=== PATIENT | female | born 1965 | race Caucasian/White ===

== ENCOUNTER → 2017-08-14 | Outpatient (CLI) | payer BC ==
--- NOTE | 2017-08-15 08:13 | MM ---
Reason for exam: screening (asymptomatic). Last mammogram was performed 7 years and 2 months ago. History: Family history of breast cancer in maternal grandmother at age 30. Physical Findings: A clinical breast exam by your physician is recommended on an annual basis and results should be correlated with mammographic findings. MG 3D Screening Mammo W/Cad Bilateral CC and MLO view(s) were taken. XCCL view(s) were taken of the left breast. Prior study comparison: June 08, 2010, CAD bilateral diagnostic mammogram. The breast tissue is heterogeneously dense. This may lower the sensitivity of mammography. Abnormal lymph node within the left axilla. Large area of malignant calcifications measuring 5.2 x 4.0cm with underlying mass upper outer quadrant left breast 11cm from nipple. Additional smaller clusters. ASSESSMENT: Incomplete: need additional imaging evaluation, BI-RAD 0 RECOMMENDATION: Special view mammogram and ultrasound of the left breast. [facility] will attempt to contact patient to return for supplemental views and ultrasound.
== END | disposition home or self-care (01) ==
LOC: RADMAMWWP 14:17
PROVIDERS: ATTEND Family Medicine
DX: Z12.31 Encounter for screening mammogram for malignant neoplasm of breast (principal)
CPT/HCPCS: 77063; 77067

== ENCOUNTER → 2017-08-23 | Outpatient (CLI) | payer BC ==
--- NOTE | 2017-08-27 09:03 | MM ---
Reason for exam: additional evaluation requested from abnormal screening. Last mammogram was performed less than 1 month ago. History: Family history of breast cancer in maternal grandmother at age 30. 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 MG 3D Work Up W/Cad LT LM, LM with magnification, and CC with magnification view(s) were taken of the left breast. Prior study comparison: August 14, 2017, bilateral MG 3d screening mammo w/cad. June 08, 2010, CAD bilateral diagnostic mammogram. Finding: There is an intermediate concern, suspicious 17 x 31 mm high density, spiculated irregular mass located 8 cm from the nipple in the upper outer quadrant, middle position of the left breast consistent with extensive punctate calcifications. These results were verbally communicated with the patient and result sheet given to the patient on 08/23/17. ASSESSMENT: Highly suggestive of malignancy, BI-RAD 5 RECOMMENDATION: Surgical consultation and ultrasound core biopsy of the left breast. Called Dr. Melchor with mammographic findings and has scheduled an appointment for the patient for 08/24/17 at 12:[address] Schreiber. Biopsy scheduled for 08/28/17 at 2:00. PRELIMINARY REPORT CALLED AND FAXED TO DR. SCHREIBER ON 08/27/17.
--- NOTE | 2017-08-27 09:05 | USB ---
Reason for exam: additional evaluation requested from abnormal screening. History: Family history of breast cancer in maternal grandmother at age 30. US Breast Workup Limited LT Left limited breast ultrasound including focal area of concern, retroareolar and axilla demonstrates ductal ectasia at the nipple, a 0.9 x 0.3 x 0.9cm solid lesion at 2 o'clock, a 2.2 x 2.4 x 2.9cm solid lesion at 3 o'clock, a 1.7 x 1.0 x 1.6cm node at the axilla, a 1.6 x 1.4 x 0.9cm node at the axilla and a 1.2 x 1.4 x 1.4cm node at the axilla. These results were verbally communicated with the patient and result sheet given to the patient on 08/23/17. ASSESSMENT: Highly suggestive of malignancy, BI-RAD 5 RECOMMENDATION: Surgical consultation and ultrasound core biopsy of the left breast. Called Dr. Melchor with mammographic findings and has scheduled an appointment for the patient for 08/24/17 at 12:[address] Schreiber. Biopsy scheduled for 08/28/17 at 2:00. PRELIMINARY REPORT CALLED AND FAXED TO DR. SCHREIBER ON 08/27/17.
== END | disposition home or self-care (01) ==
LOC: RADMAMWWP 14:46
PROVIDERS: ATTEND Family Medicine
DX: R92.8 Other abnormal and inconclusive findings on diagnostic imaging of breast (principal)
CPT/HCPCS: 77061; 77065

== ENCOUNTER → 2017-08-24 | Outpatient (CLI) | payer BC ==
[2017-08-24 12:54] VITALS: BMI 34.0
--- NOTE | 2017-08-24 13:48 | P.GSHP ---
History of Present Illness H&P Date: 08/24/17 I patient is a 52-year-old white female who complains of some pain in her left breast in the upper outer quadrant area. She recently mammogram 529 and 18 which showed an area of concern in the upper outer quadrant of the left breast. Additional views including ultrasound and diagnostic mammogram have been recommended, theses were done yesterday. Reports are pending, an ultrasound core biopsy is recommended. Patient complains of left breast nipple discharge about 1 month ago, it has stopped. No masses or pain in the right breast.No nipple discharge on the right. The patient does complain of bilateral nipple sensitivity she had her last menstrual. Approximately 6 months ago. Family history: 1. Maternal grandmother breast cancer Menarche: 15 Pregnancies: 2, first at 20, breast fed both menarche: last menstral period 6 months ago Past surgical history: 1. Removal of coccyx 2. Hysteroscopy 3. Laparoscopy 4. Tubal ligation past medical history: 1. Ulcerative colitis 2. Irritable bowel syndrome social history: smoke: none alcohol: none drugs: none - Constitutional Constitutional: Denies chills, Denies fever - EENT Eyes: denies blurred vision, denies pain Ears: deny: decreased hearing, ear discharge, tinnitus Ears, nose, mouth and throat: Reports headache, Denies sore throat - Breasts Breasts: bilateral: as per HPI - Cardiovascular Cardiovascular: Denies chest pain, Denies shortness of breath - Respiratory Respiratory: Reports cough - Gastrointestinal Comment: ulcerative colitis, IBS colonoscopy in the past has had several Gastrointestinal: Reports abdominal pain, Reports diarrhea, Denies nausea, Denies vomiting - Genitourinary (Female) Genitourinary: Reports as per HPI - Menstruation Menstruation: Reports as per HPI - Musculoskeletal Musculoskeletal: Reports as per HPI - Integumentary Comment: itching around nipples bilateral Integumentary: Reports pruritus, Denies rash - Neurological Neurological: Reports numbness, Denies weakness - Psychiatric Psychiatric: Denies anxiety, Denies depression - Endocrine Endocrine: Reports fatigue, Reports flushing, Denies weight change - Hematologic/Lymphatic Comment: none - Allergic/Immunologic Allergic/Immunologic: Reports seasonal allergies Past Medical History Past Medical History: No Reported History Additional Past Medical History / Comment(s): IBS, History of Any Multi-Drug Resistant Organisms: None Reported Additional Past Surgical History / Comment(s): TAIL BONE REMOVED IN 9TH GRADE, Smoking Status: Never smoker - Past Family History Mother Family Medical History: Eye Disorder, Osteoarthritis (OA) Additional Family Medical History / Comment(s): IBS Surgical - Exam - General obese - Eyes normal ocular movement - ENT normal pinna, normal nares - Neck no masses, trachea midline - Respiratory normal respiratory effort, clear to auscultation - Cardiovascular Rhythm: regular Heart Sounds: normal: S1, S2 - Abdomen Abdomen: soft, non tender, no guarding, no rigid, no rebound - Neurologic no disoriented, no combative - Musculoskeletal normal gait, normal posture - Psychiatric oriented to time, oriented to person, oriented to place, speech is normal, memory intact Breast examination: Right breast: Both positional exam no dominant masses or nodules of concern Right axilla: No adenopathy of concern Left breast: Increased fullness upper-outer quadrant area approximately 5 x 4 cm in size Left axilla: No adenopathy of concern Assessment and Plan Assessment: Impression/plan: 1. Left breast abnormal mammogram/ultrasound, mass UOQ 2. History of ulcerative colitis Plan: 1. Ultrasound-guided left breast core biopsy 2. Follow-up next week cc: Dr. Melchor
== END ==
LOC: WWCWWP 12:48
PROVIDERS: ATTEND Surgery
DX: Z53.9 Procedure and treatment not carried out, unspecified reason (principal)

== ENCOUNTER → 2017-08-28 | Day surgery (SDC) | payer BC ==
[2017-08-28 13:46] VITALS: RESP 16; BMI 34.0
--- NOTE | 2017-08-28 14:57 | USB ---
ULTRASOUND GUIDED CORE BIOPSY LEFT BREAST: CLINICAL HISTORY: Abnormal mammogram FINDINGS: The procedure was explained to the patient. The risks, complications, benefits and alternatives were discussed and any questions were answered. Informed consent was obtained. Patient was placed supine on the ultrasound table and prepped and draped in the usual sterile fashion. Utilizing a 18 gauge needle, 4 passes were made into the left upper outer quadrant approximately 3:00 lesion. Surgical clip is post procedure. Repeat mammogram demonstrated the clip to be in ideal position. Patient was stable throughout the procedure. Pathology is pending. All elements of maximal barrier and sterile technique were utilized. IMPRESSION: 1. Successful ultrasound guided core biopsy left breast mass. The mass is highly suspicious for malignancy. If the pathology does not yield a malignant result than a repeat biopsy with stereotactic mammotome biopsy would be suggested.. 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 Focal clear cell change in duct carcinoma - in - situ. Immunohistochemical studies for e-Cadherin, Calponin and Cytokeratin 5/6 as well as PAS with and without diastase digestion confirm the above diagnosis with adequate stain performance documented on control sections. Recommendation Surgical consult of the left breast. (Consider ultrasound guided left axillary lymph node sampling prior to surgical intervention. The entire left breast can be surveyed with ultrasound at that time.) [facility]
[2017-08-28 15:15] VITALS: BP 148/91; PULSE 69; TEMP 97.7
--- NOTE | 2017-08-29 07:58 | MM ---
Reason for exam: additional evaluation requested from abnormal screening. Last mammogram was performed less than 1 month ago. History: Family history of breast cancer in maternal grandmother at age 30. MG Diagnostic Mammo LT Wo CAD CC and MLO view(s) were taken of the left breast. Prior study comparison: August 23, 2017, left breast MG 3d work up w/cad LT. August 14, 2017, bilateral MG 3d screening mammo w/cad. ASSESSMENT: Post procedure mammogram for marker placement RECOMMENDATION: Surgical consultation of the left breast.
== END | disposition home or self-care (01) ==
LOC: RADUSWWP 13:24
PROVIDERS: ATTEND Surgery
DX: C50.912 Malignant neoplasm of unspecified site of left female breast (principal); Z80.3 Family history of malignant neoplasm of breast
CPT/HCPCS: 88305; 88313; 88342; 88341; 77065; 19083; A4648; J2001

== ENCOUNTER → 2017-08-31 | Outpatient (CLI) | payer BC ==
[2017-08-31 11:22] VITALS: BMI 34.0
--- NOTE | 2017-08-31 12:55 | P.PN ---
Progress Note - Text Progress Note Date: 08/31/17 The patient is a 52-year-old white female who presents status post core biopsy of a lesion of high suspicion in the left breast in the upper outer quadrant area. The lesion is approximately 3 cm in size. Pathology revealed this to be a high-grade invasive carcinoma. Final studies are pending. her case was discussed with medical oncology and it has been recommended she undergo an axillary node for biopsy as well. I discussed with the patient that although surgical intervention will be necessary she may require preoperative chemotherapy and she will be scheduled to see medical oncology in the near future. We have discussed options of surgery which would include lumpectomy, or mastectomy plus or minus reconstruction and the patient wishes to undergo a lumpectomy if this is at all possible. Physical exam: At this time the patient's puncture site is clean and dry. The patient is doing well related to the biopsy. There is no evidence of hematoma. Impression/plan: 1. High-grade carcinoma left breast 2. Probable positive axillary adenopathy noted on ultrasound not felt clinically 3. Follow-up with medical oncology 4. Ultrasound-guided core biopsy of axillary lymph node of concern 5. To follow up with me after that with medical oncology and axillary node biopsy 6. Present case at tumor board CC: DR. Willard
== END ==
LOC: WWCWWP 11:03
PROVIDERS: ATTEND Surgery
DX: C50.912 Malignant neoplasm of unspecified site of left female breast (principal)

== ENCOUNTER 2017-10-26 13:38 | Inpatient (IN) | payer BC ==
[2017-10-26] MEDS ORDERED: ACETAMINOPHEN TAB 500 MG TAB PO STA (14:28)
[2017-10-26] MEDS ORDERED: IBUPROFEN IV 600 MG in SODIUM CHLORIDE 0.9% 250 ML IV STA (14:28)
[2017-10-26] MEDS ORDERED: cefTRIAXone IN SWFI 1,000 MG/10 ML SYRINGE IVP STA (14:28)
--- NOTE | 2017-10-26 14:32 | ED ---
General Adult HPI - General Chief complaint: Recheck/Abnormal Lab/Rx Stated complaint: reaction to chemo Time Seen by Provider: 10/26/17 13:51 Source: patient, family, RN notes reviewed, old records reviewed Mode of arrival: ambulatory Limitations: no limitations - History of Present Illness Initial comments: This is a 52-year-old female presents to the emergency department today with chief complaint of fevers chills body aches 4 days post chemotherapy. Patient reports that she had chemo on Sunday at cancer treatment Center in [place]. This was her first chemo treatment. Patient states that she has had progressive body aches since that time. She states she has abdominal pain as well. She denies any vomiting. She reports she's had 2 stools, denies any blood in her stool. She doesn't history of ulcerative colitis. Patient states that she's been treated for left breast cancer with metastases to lymph nodes. On Sunday she receives CellCept. Patient states that she called the cancer treatment facility and they told her to come in for further evaluation. She reports that she's had diffuse body aches. She does arrive to emergency department with a low-grade temperature 100.2. Last dose of Tylenol was yesterday evening. - Related Data Home Medications Medication Instructions Recorded Confirmed No Known Home Medications 08/27/17 08/31/17 Allergies Allergy/AdvReac Type Severity Reaction Status Date / Time levofloxacin [From Levaquin] Allergy Rash/Hives Verified 10/26/17 13:47 nitrofurantoin Allergy Rash/Hives Verified 10/26/17 13:47 [From Macrobid] sulfamethoxazole Allergy Rash/Hives Verified 10/26/17 13:47 [From Bactrim] trimethoprim [From Bactrim] Allergy Rash/Hives Verified 10/26/17 13:47 acetaminophen [From Midol] AdvReac Confusion Verified 10/26/17 13:47 aspirin [From Pamprin Max] AdvReac Confusion Verified 10/26/17 13:47 caffeine [From Pamprin Max] AdvReac Confusion Verified 10/26/17 13:47 dextromethorphan AdvReac Unknown Verified 10/26/17 13:47 [From NyQuil] diphenhydramine AdvReac Unknown Verified 10/26/17 13:47 [From Benadryl] doxylamine [From NyQuil] AdvReac Unknown Verified 10/26/17 13:47 pamabrom [From Midol] AdvReac Confusion Verified 10/26/17 13:47 pseudoephedrine [From NyQuil] AdvReac Unknown Verified 10/26/17 13:47 Review of Systems ROS Statement: Those systems with pertinent positive or pertinent negative responses have been documented in the HPI. ROS Other: All systems not noted in ROS Statement are negative. Past Medical History Past Medical History: Cancer Additional Past Medical History / Comment(s): IBS, ulcerative colitis, frequent migraines, chronic cough, left breast ca History of Any Multi-Drug Resistant Organisms: None Reported Past Surgical History: Orthopedic Surgery Additional Past Surgical History / Comment(s): tail bone fractured and removed in 9th grade, laproscopy, hysteroscopy Past Anesthesia/Blood Transfusion Reactions: Previous Problems w/ Anesthesia, Postoperative Nausea & Vomiting (PONV) Additional Past Anesthesia/Blood Transfusion Reaction / Comment(s): "Very hard time coming out of anesthesia" Past Psychological History: No Psychological Hx Reported Smoking Status: Former smoker Past Alcohol Use History: None Reported Past Drug Use History: None Reported - Past Family History Mother Family Medical History: Eye Disorder, Osteoarthritis (OA) Additional Family Medical History / Comment(s): IBS General Exam - General Exam Comments Initial Comments: 52-year-old female. Alert and oriented. No significant distress. Limitations: no limitations General appearance: alert, in no apparent distress Head exam: Present: atraumatic, normocephalic, normal inspection Eye exam: Present: normal appearance, PERRL, EOMI. Absent: scleral icterus, conjunctival injection, periorbital swelling ENT exam: Present: normal exam, mucous membranes moist Neck exam: Present: normal inspection. Absent: tenderness, meningismus, lymphadenopathy Respiratory exam: Present: normal lung sounds bilaterally. Absent: respiratory distress, wheezes, rales, rhonchi, stridor Cardiovascular Exam: Present: regular rate, normal rhythm, normal heart sounds. Absent: systolic murmur, diastolic murmur, rubs, gallop, clicks GI/Abdominal exam: Present: soft, tenderness (Left-sided abdominal tenderness.) , normal bowel sounds. Absent: distended, guarding, rebound, rigid Extremities exam: Present: normal inspection, full ROM, normal capillary refill. Absent: tenderness, pedal edema, joint swelling, calf tenderness Back exam: Present: normal inspection Neurological exam: Present: alert, oriented X3, CN II-XII intact Course Vital Signs 10/26/17 10/26/17 10/26/17 13:45 14:45 16:18 Temperature 99.3 F 100.2 F H Pulse Rate 106 H 89 Respiratory 18 18 Rate Blood Pressure 133/87 119/65 O2 Sat by Pulse 99 99 Oximetry Medical Decision Making - Medical Decision Making Patient is a 52-year-old female with left breast cancer with metastases into the lymph nodes presents today with fever chills body aches and pain 4 days after her first chemo treatment. Patient's chemo is delivered at cancer [facility]. Patient states that she called them and sent her here for further evaluation. She rates the emergency department febrile and tachycardic. Patient's lab work didn't show evidence of leukocytosis of 13, 000. However Patient did recently receive Neulasta injection. She is continue please of abdominal pain and leg pain. CT of her abdomen pulses negative for any acute process. At this time Patient was started on Rocephin, I discussed with Dr. Bates also start vancomycin. She does state that she did see Dr. Dorantes for initial treatment for her cancer. Patient will be admitted this time for fever and oriented and pending blood cultures. We'll continue her on the antibiotics. Patient was admitted to [facility] hospitalist group. - Lab Data Result diagrams: 10/26/17 14:40 10/26/17 14:40 Lab Results 10/26/17 10/26/17 10/26/17 Range/Units 14:40 14:40 14:40 WBC 15.0 H (3.8-10.6) k/uL RBC 4.45 (3.80-5.40) m/uL Hgb 12.9 (11.4-16.0) gm/dL Hct 38.8 (34.0-46.0) % MCV 87.1 (80.0-100.0) fL MCH 28.9 (25.0-35.0) pg MCHC 33.2 (31.0-37.0) g/dL RDW 12.5 (11.5-15.5) % Plt Count 177 (150-450) k/uL Neutrophils % (Manual) 75 % Band Neutrophils % 2 % Lymphocytes % (Manual) 2 % Monocytes % (Manual) 3 % Eosinophils % (Manual) 1 % Metamyelocytes % 5 % Myelocytes % 13 % Neutrophils # (Manual) 11.50 H (1.3-7.7) k/uL Lymphocytes # (Manual) 0.30 L (1.0-4.8) k/uL Monocytes # (Manual) 0.45 (0-1.0) k/uL Eosinophils # (Manual) 0.15 (0-0.7) k/uL Metamyelocytes # (Man) 0.75 H (0) k/uL Myelocytes # (Manual) 1.95 H (0) k/uL Nucleated RBCs 0 (0-0) /100 WBC Manual Slide Review Performed Toxic Vacuolation Present Large Platelets Present PT (9.0-12.0) sec INR (<1.2) APTT (22.0-30.0) sec Sodium 140 (137-145) mmol/L Potassium 4.6 (3.5-5.1) mmol/L Chloride 104 (98-107) mmol/L Carbon Dioxide 23 (22-30) mmol/L Anion Gap 13 mmol/L BUN 12 (7-17) mg/dL Creatinine 0.60 (0.52-1.04) mg/dL Est GFR (CKD-EPI)AfAm >90 (>60 ml/min/1.73 sqM) Est GFR (CKD-EPI)NonAf >90 (>60 ml/min/1.73 sqM) Glucose 98 (74-99) mg/dL Plasma Lactic Acid Damián 1.5 (0.7-2.0) mmol/L Calcium 9.4 (8.4-10.2) mg/dL Total Bilirubin 0.9 (0.2-1.3) mg/dL AST 60 H (14-36) U/L ALT 49 (9-52) U/L Alkaline Phosphatase 85 (38-126) U/L Troponin I (0.000-0.034) ng/mL Total Protein 7.7 (6.3-8.2) g/dL Albumin 4.7 (3.5-5.0) g/dL Urine Color Urine Appearance (Clear) Urine pH (5.0-8.0) Ur Specific [place] (1.001-1.035) Urine Protein (Negative) Urine Glucose (UA) (Negative) Urine Ketones (Negative) Urine Blood (Negative) Urine Nitrite (Negative) Urine Bilirubin (Negative) Urine Urobilinogen (<2.0) mg/dL Ur Leukocyte Esterase (Negative) Urine RBC (0-5) /hpf Urine WBC (0-5) /hpf Ur Squamous Epith Cells (0-4) /hpf 10/26/17 10/26/17 10/26/17 Range/Units 14:40 14:40 14:40 WBC (3.8-10.6) k/uL RBC (3.80-5.40) m/uL Hgb (11.4-16.0) gm/dL Hct (34.0-46.0) % MCV (80.0-100.0) fL MCH (25.0-35.0) pg MCHC (31.0-37.0) g/dL RDW (11.5-15.5) % Plt Count (150-450) k/uL Neutrophils % (Manual) % Band Neutrophils % % Lymphocytes % (Manual) % Monocytes % (Manual) % Eosinophils % (Manual) % Metamyelocytes % % Myelocytes % % Neutrophils # (Manual) (1.3-7.7) k/uL Lymphocytes # (Manual) (1.0-4.8) k/uL Monocytes # (Manual) (0-1.0) k/uL Eosinophils # (Manual) (0-0.7) k/uL Metamyelocytes # (Man) (0) k/uL Myelocytes # (Manual) (0) k/uL Nucleated RBCs (0-0) /100 WBC Manual Slide Review Toxic Vacuolation Large Platelets PT 9.6 (9.0-12.0) sec INR 1.0 (<1.2) APTT 22.3 (22.0-30.0) sec Sodium (137-145) mmol/L Potassium (3.5-5.1) mmol/L Chloride (98-107) mmol/L Carbon Dioxide (22-30) mmol/L Anion Gap mmol/L BUN (7-17) mg/dL Creatinine (0.52-1.04) mg/dL Est GFR (CKD-EPI)AfAm (>60 ml/min/1.73 sqM) Est GFR (CKD-EPI)NonAf (>60 ml/min/1.73 sqM) Glucose (74-99) mg/dL Plasma Lactic Acid Damián (0.7-2.0) mmol/L Calcium (8.4-10.2) mg/dL Total Bilirubin (0.2-1.3) mg/dL AST (14-36) U/L ALT (9-52) U/L Alkaline Phosphatase (38-126) U/L Troponin I <0.012 (0.000-0.034) ng/mL Total Protein (6.3-8.2) g/dL Albumin (3.5-5.0) g/dL Urine Color Yellow Urine Appearance Clear (Clear) Urine pH 7.0 (5.0-8.0) Ur Specific [place] 1.004 (1.001-1.035) Urine Protein Negative (Negative) Urine Glucose (UA) Negative (Negative) Urine Ketones 1+ H (Negative) Urine Blood Negative (Negative) Urine Nitrite Negative (Negative) Urine Bilirubin Negative (Negative) Urine Urobilinogen <2.0 (<2.0) mg/dL Ur Leukocyte Esterase Moderate H (Negative) Urine RBC <1 (0-5) /hpf Urine WBC 6 H (0-5) /hpf Ur Squamous Epith Cells <1 (0-4) /hpf 10/26/17 15:28 EKG performed at 1505 shows sinus rhythm with ST-T wave abnormality. Considering anterior ischemia. Ventricular rate 80 beats were minute. MO interval is 118 ms. QRS ration 90 ms. QT QTc is 370-447 ms. - Radiology Data Radiology results: report reviewed No acute cardio primary process. Negative CT of abdomen and pelvis mild sigmoid diverticulosis. Small hiatal hernia. Disposition Clinical Impression: Status post chemotherapy, Fever, Sepsis, Body aches, Breast CA Disposition: ADMITTED IP TO THIS HOSP Condition: Stable Is patient prescribed a controlled substance at d/c from ED?: No Referrals: Trevon Melchor DO [Primary Care Provider] - 1-2 days Time of Disposition: 17:42
[2017-10-26] MEDS: SODIUM CHLORIDE 0.9% 1,000 ML IV SCH ×2 (14:55→20:51)
[2017-10-26] MEDS: SODIUM CHLORIDE 0.9% 500 ML IV SCH ×2 (14:59→15:00)
[2017-10-26 15:04] LABS: Appearance,Urine Clear (Clear); Bilirubin,Urine Negative (Negative); Blood,Urine Negative (Negative); Color,Urine Yellow; Glucose,Urine (UA) Negative (Negative); Ketones,Urine 1+ (Negative); Leukocyte Esterase,Urine Moderate (Negative); Nitrite,Urine Negative (Negative); Protein,Urine Negative (Negative); RBC,Urine <1 /hpf (0-5); Specific Gravity,Urine 1.004 (1.001-1.035); Squamous Epithelial Cell,Urine <1 /hpf (0-4); Urobilinogen,Urine <2.0 mg/dL (<2.0); WBC,Urine 6 /hpf (0-5)
[2017-10-26 15:13] LABS: ALT 49 U/L (9-52); AST 60 U/L (14-36); Albumin 4.7 g/dL (3.5-5.0); Alkaline Phosphatase 85 U/L (38-126); Anion Gap 13 mmol/L; Blood Urea Nitrogen 12 mg/dL (7-17); Calcium 9.4 mg/dL (8.4-10.2); Carbon Dioxide 23 mmol/L (22-30); Chloride 104 mmol/L (98-107); Glucose 98 mg/dL (74-99); Potassium 4.6 mmol/L (3.5-5.1); Sodium 140 mmol/L (137-145); Total Bilirubin 0.9 mg/dL (0.2-1.3); Total Protein 7.7 g/dL (6.3-8.2)
[2017-10-26 15:16] LABS: HCT 38.8 % (34.0-46.0); HGB 12.9 gm/dL (11.4-16.0); MCH 28.9 pg (25.0-35.0); MCHC 33.2 g/dL (31.0-37.0); MCV 87.1 fL (80.0-100.0); Mean Platelet Volume 8.9; Platelet Count 177 k/uL (150-450); RBC 4.45 m/uL (3.80-5.40); RDW 12.5 % (11.5-15.5)
--- NOTE | 2017-10-26 15:29 | XR ---
EXAMINATION TYPE: XR chest 2V DATE OF EXAM: 10/26/2017 COMPARISON: None HISTORY: 52 year-old female with fever TECHNIQUE: AP and lateral views FINDINGS: The cardiomediastinal silhouette, aorta, and pulmonary vasculature are within normal limits. Hazy low er lung densities related to overlying soft tissue. No consolidation or pleural effusion seen. IMPRESSION: No acute cardiopulmonary process.
[2017-10-26] MEDS ORDERED: MORPHINE SULFATE 4 MG/ML SYRINGE IVP STA (15:31)
[2017-10-26 15:32] LABS: Partial Thromboplastin Time 22.3 sec (22.0-30.0); Prothrombin Time 9.6 sec (9.0-12.0)
[2017-10-26 15:46] LABS: Band Neutrophils % 2 %; Eosinophils # (M) 0.15 k/uL (0-0.7); Metamyelocytes # (M) 0.75 k/uL (0); Metamyelocytes % 5 %; Monocytes # (M) 0.45 k/uL (0-1.0); Myelocytes # (M) 1.95 k/uL (0); Myelocytes % 13 %; Neutrophils % (M) 75 %; Nucleated Red Blood Cells 0 /100 WBC (0-0); Total Cells Counted 200; Toxic Vacuolation Present
[2017-10-26 15:47] LABS: Large Platelets Present
--- NOTE | 2017-10-26 17:15 | CT ---
EXAMINATION TYPE: CT abdomen pelvis w con DATE OF EXAM: 10/26/2017 COMPARISON: None HISTORY: Patient complains of generalized abdominal pain post chemo treatment. CT DLP: 1663 mGycm Automated exposure control for dose reduction was used. TECHNIQUE: Helical acquisition of images was performed from the lung bases through the pelvis. CONTRAST: Performed without Oral Contrast and with IV Contrast, patient injected with 100 mL of Isovue 300. FINDINGS: There is minimal subsegmental atelectasis at the right posterior lung base. There is no pleural effus ion. Heart size is normal. There is a 1 cm cyst in the posterior spleen. Liver appears normal. Bile ducts are not dilated. There is no pancreatic mass. Gallbladder appears normal. There is no adrenal mass. Kidneys show satisfactory contrast opacification. There is no hydronephrosi s. Bladder distends smoothly. There is no evidence of a pelvic mass. There are scattered sigmoid dive rticula. There is no evidence of diverticulitis. There is no intestinal wall thickening. There are no dilated loops. There is no retroperitoneal adenopathy. The appendix appears normal. There is small h iatal hernia. Bony structures appear intact. There is no intestinal obstruction. There is small umbilical hernia that contains fat. IMPRESSION: NEGATIVE CT SCAN OF THE ABDOMEN AND PELVIS. MILD SIGMOID DIVERTICULOSIS. SMALL HIATAL HERNIA.
[2017-10-26] MEDS ORDERED: VANCOMYCIN IV PER PHARMACY 1 EACH MISC MISCELLANE PRN (17:42)
[2017-10-26] MEDS ORDERED: NALOXONE 0.4 MG/ML 1 ML VIAL IV PRN (17:44)
[2017-10-26] MEDS ORDERED: ACETAMINOPHEN TAB 325 MG TAB PO PRN (17:44)
[2017-10-26] MEDS ORDERED: IBUPROFEN 400 MG TAB PO PRN (17:44)
[2017-10-26] MEDS ORDERED: VANCOMYCIN 1,500 MG in SODIUM CHLORIDE 0.9% 250 ML IVPB STA (17:49)
[2017-10-26] MEDS: MORPHINE SULFATE 4 MG/ML SYRINGE IV PRN (20:51)
[2017-10-26] MEDS ORDERED: TEMAZEPAM 15 MG CAP PO PRN (23:28)
[2017-10-26] MEDS ORDERED: ALPRAZolam 0.25 MG TAB PO PRN (23:28)
[2017-10-26] MEDS: KETOROLAC 30 MG/ML 1 ML VIAL IVP PRN (23:47)
[2017-10-27] MEDS: CEFEPIME 2 GM in SODIUM CHLORIDE 0.9% 50 ML IVPB SCH ×4 (00:36→23:24)
[2017-10-27] MEDS: MORPHINE SULFATE 4 MG/ML SYRINGE IV PRN ×2 (04:19→09:13)
[2017-10-27] MEDS: VANCOMYCIN 1,500 MG in SODIUM CHLORIDE 0.9% 250 ML IVPB SCH ×2 (05:55→18:01)
[2017-10-27] MEDS: SODIUM CHLORIDE 0.9% 1,000 ML IV SCH ×2 (05:56→18:01)
[2017-10-27] MEDS ORDERED: cefTRIAXone IN SWFI 1,000 MG/10 ML SYRINGE IVP SCH (06:00)
[2017-10-27 06:52] VITALS: RESP 16
[2017-10-27 07:11] LABS: Basophils # (A) 0.2 k/uL (0-0.2); Basophils % (A) 2 %; Eosinophils # (A) 0.1 k/uL (0-0.7); Eosinophils % (A) 1 %; HCT 36.4 % (34.0-46.0); HGB 11.8 gm/dL (11.4-16.0); Lymphocytes # (A) 0.3 k/uL (1.0-4.8); Lymphocytes % (A) 3 %; MCH 29.4 pg (25.0-35.0); MCHC 32.5 g/dL (31.0-37.0); MCV 90.6 fL (80.0-100.0); Mean Platelet Volume 8.1; Monocytes # (A) 0.4 k/uL (0-1.0); Monocytes % (A) 5 %; Neutrophils # (A) 7.8 k/uL (1.3-7.7); Neutrophils % (A) 88 %; Platelet Count 141 k/uL (150-450); RBC 4.01 m/uL (3.80-5.40); RDW 12.8 % (11.5-15.5); WBC 8.9 k/uL (3.8-10.6)
[2017-10-27 07:21] LABS: Anion Gap 4 mmol/L; Blood Urea Nitrogen 11 mg/dL (7-17); Calcium 8.2 mg/dL (8.4-10.2); Carbon Dioxide 27 mmol/L (22-30); Chloride 108 mmol/L (98-107); Glucose 99 mg/dL (74-99); Potassium 4.7 mmol/L (3.5-5.1); Sodium 139 mmol/L (137-145)
--- NOTE | 2017-10-27 08:07 | HP ---
HISTORY AND PHYSICAL DATE OF SERVICE: 10/26/2017 CHIEF COMPLAINTS: Fever and generalized aches and pains. HISTORY OF PRESENT ILLNESS: This 52-year-old woman with a past medial history of irritable bowel syndrome, ulcerative colitis, history of migraines, history of orthopedic surgery, being followed by Dr. Melchor in the outpatient setting was recently diagnosed with breast cancer. The patient has seen Dr. Dorantes. The patient is also receiving chemotherapy from [facility] from [place], [place]. The patient apparently finished first course of chemotherapy. The patient had some nausea. Subsequently patient has some leg pain, which is increasing, which is spreading upwards and involving other parts of body. Patient is also febrile. Also, patient came to [facility] for further evaluation and treatment. Patient also received Neulasta. WBC 15, hemoglobin 12.9 at this time. There is no history of headache, loss of consciousness, seizures at this time. UA shows mild urinary tract infection. PAST MEDICAL HISTORY: History of irritable bowel syndrome, breast cancer as mentioned earlier, ANDERSON. MEDICATIONS: Prior to admission include home medications are: 1. Vitamin B6 1 tablet p.o. daily. 2. Lactobacillus. 3. Fish oil. 4. Cranberry. 5. Vitamin D3 5000 daily. 6. Boswellia 1 tablet p.o. daily. ALLERGIES: Are LEVAQUIN, NITROFURANTOIN, BACTRIM, MIDOL, MAC, PAMPRIN, NYQUIL, BENADRYL. FAMILY HISTORY: History of osteoarthritis, IBS. SOCIAL HISTORY: No history of smoking. No alcohol intake. REVIEW OF SYSTEMS: ENT: No diminished hearing, vision. CARDIOVASCULAR: No angina. RESPIRATORY: As mentioned earlier, occasional cough. GI: No nausea. : No dysuria. NERVOUS SYSTEM: No numbness or weakness. ALLERGY/IMMUNOLOGY: No history of asthma. MUSCULOSKELETAL: As mentioned earlier. HEMATOLOGY/ONCOLOGY: As mentioned earlier. ENDOCRINE: No history of diabetes or hypothyroidism. CONSTITUTIONAL: As mentioned earlier. DERMATOLOGY: Negative. RHEUMATOLOGY: Negative. PSYCHIATRY: As mentioned earlier. EXAMINATION: Alert and oriented x3. Pulse 94, blood pressure 140/80, respiration 18, temperature 98.4, pulse ox 98% on room air. The T-max is 100.2. HEENT: Conjunctivae normal. Oral mucosa moist. NECK: No jugular venous distention. No carotid bruit. No lymph node enlargement. CARDIOVASCULAR: S1, S2. RESPIRATORY: Breath sounds diminished in the bases. A few scattered rhonchi, no crackles. ABDOMEN: Soft, obese, nontender. No mass palpable. LEGS: No edema, no swelling. NERVOUS SYSTEM: Higher functions as mentioned earlier. Moves all four limbs. No focal motor or sensory deficits. LYMPHATICS: No lymphadenopathy in the neck, axillae, groin. SKIN: No ulcer, rash, bleeding. LABS: WBC 15, hemoglobin 12.9, AST 60. UA noted. ASSESSMENT: 1. Fever, possibly sepsis. 2. Carcinoma of the breast on chemotherapy. 3. Increased WBC. 4. Possibly urinary tract infection. 5. Irritable bowel syndrome. 6. History of ulcerative colitis. 7. History of frequent migraines. 8. History of chronic cough. 9. History of degenerative joint disease. 10.Obesity with body mass index 30.6. RECOMMENDATIONS AND DISCUSSION: This 52-year-old woman who presented with multiple complex medical issues, will monitor the patient closely. Continue the current management and symptomatic treatment. Otherwise at this time, I recommend broad-spectrum IV antibiotics. Follow the cultures. Infectious Disease evaluation. Otherwise, guarded prognosis because of multiple complex medical issues. Further recommendations to follow. Please note the patient's MULTIPLE ALLERGIES and further recommendations to follow. DVT prophylaxis. Resume the home medications. See orders for details. Further recommendations to follow. Will obtain cultures also. MMODL / IJN: [id number] / MTDD
[2017-10-27] MEDS: THIAMINE 100 MG TAB PO SCH (08:19)
[2017-10-27] MEDS: CHOLECALCIFEROL 1,000 UNIT TAB PO SCH (08:19)
[2017-10-27] MEDS ORDERED: FISH OIL PO SCH (09:00)
[2017-10-27] MEDS ORDERED: NON-FORMULARY DRUG (L.Acidoph,Paracasei, B.Lactis [Probiotic] 1 CAP) PO SCH (09:00)
[2017-10-27] MEDS ORDERED: NON-FORMULARY DRUG (Glucosam/Chon-Msm1/C/Mang/Bosw [Glucosamine-Chondroitin Tablet] 1 TAB) PO SCH (09:00)
[2017-10-27] MEDS: PANTOPRAZOLE 40 MG/10 ML VIAL IV SCH (09:22)
[2017-10-27] MEDS: KETOROLAC 30 MG/ML 1 ML VIAL IVP PRN (11:31)
[2017-10-27] MEDS: MORPHINE SULFATE 4 MG/ML SYRINGE IVP PRN ×3 (14:14→21:20)
--- NOTE | 2017-10-27 16:13 | PN ---
PROGRESS NOTE DATE OF SERVICE: 10/27/2017 This 52-year-old woman who was admitted with fever and possible sepsis also some abdominal discomfort. The patient was receiving chemotherapy for breast cancer also. Also, no chest pain or palpitation. No fever. A CAT scan of the abdomen showed only mild sigmoid diverticulosis and small hiatal hernia. No chest pain or palpitation. No fever. PHYSICAL EXAMINATION: On exam, alert and oriented x3. Pulse 89, blood pressure 102/52, respiration 16, temperature 98.2, pulse ox 95% on room air. HEENT: Conjunctivae normal. NECK: No jugular venous distention. CARDIOVASCULAR: S1 and S2 muffled. RESPIRATORY: Breath sounds diminished at the bases. No rhonchi, no crackles. ABDOMEN: Soft, minimal diffuse discomfort. LEGS: No edema, no swelling. NERVOUS SYSTEM: No focal deficits. LABS: CBC within normal limits. Platelets 141. UA noted. ASSESSMENT: 1. Fever possible sepsis with secondary to urinary tract infection, present on admission. 2. Cancer of breast on chemotherapy. 3. Increased WBC. 4. Irritable bowel syndrome. 5. History of ulcerative colitis. 6. History of frequent migraines. 7. History of chronic cough. 8. History of degenerative joint disease. 9. Obesity with body mass index 32.6. RECOMMENDATIONS AND DISCUSSION: Recommend to continue current medications. Continue with monitoring and symptomatic treatment. Otherwise at this time I recommend to continue IV antibiotics. CAT scan of the abdomen noted. Symptomatic treatment of the pain and I would also recommend hematology/oncology evaluation. Guarded prognosis. Further recommendations to follow. MMODL / IJN: [id number] /
--- NOTE | 2017-10-27 16:48 | P.CONS ---
History of Present Illness - Reason for Consult Consult date: 10/27/17 Breast cancer, fever Requesting physician: Niyah Guzman - Chief Complaint Fever - History of Present Illness Ms. Berumen is a pleasant 52 yo female with prior breast cancer, on treatment at [facility] in [place], who had chemotherapy last week, here for fevers. Infectious work up, including CT AP, CXR, labs, and cultures shows normal WBC at 15, improved to 8.9, ANC 7.8, and UA positive for UTI. Cultures pending and pt on antibiotics. She did receive TC on 10/23/17 with Neulasta on Pro. She began having body aches the following evening. Some nausea the following morning controlled with Compazine. She then began having worsening body aches, sore throat, and sharp abdominal pain. No diarrhea or constipation. No vomiting. She has also been having generalized weakness. She started having a fever and presented to the emergency room. Febrile here up to 101F. Workup as mentioned above with mild leukocytosis and UA suggestive of a UTI. ID consulted and patient started on antibiotics and admitted for further care. Her cancer history is as follows: She underwent diagnostic mammogram on 08/14/17 for left breast brown nipple discharge x 2 months, which revealed an area of calcification measuring 5 cm in UOQ, U/S of breast on 08/23/17 revealing 2.2X2.4X2.9 cm solid lesion at 3 O'clock 0.9X0.3X0.9 solid lesion at 2 O'clock and 2 nodes in L axilla meauring 1.4X1.2 and 1.6X1.4 cm. She underwent core needle biopsy of the 3 O'clock lesion on 03/05 which showed Grade III infiltrating ductal carcinoma ER/MD 100%/35-40% [id number] +2 by IHC and equivocal by FISH (Ratio 1.4:1). She was seen by Dr. Dorantes on 09/20/17 at which time MRI was recommended as well as US guided biopsy of left axillary LN. Neoadjuvant chemo with ddAC-ddT was recommended if LN was positive or if MRI revealed more extensive disease, otherwise surgery was recommended as upfront therapy followed by discussion of possible adjuvant chemotherapy based on final pathology followed by endocrine therapy. She preferred to go to [facility] in [place] for second opinion and further care of her breast cancer. She was seen there by multiple teams and was started on TC with Neulasta, first cycle administered on 10/23/17. She denies family history of Breast or Ovarian cancers. She is a lifetime non smoker, denies ETOH use. . Review of Systems All systems: negative Constitutional: Reports as per HPI Past Medical History Past Medical History: Cancer Additional Past Medical History / Comment(s): IBS, ulcerative colitis, frequent migraines, had chronic cough in past that was d/t nay-was tx and resolved, left breast ca -had first chemo tc on sunday10/23/17 at cancer tx center in [place] History of Any Multi-Drug Resistant Organisms: None Reported Past Surgical History: Orthopedic Surgery, Tubal Ligation Additional Past Surgical History / Comment(s): tail bone fractured and removed in 9th grade, laproscopy, hysteroscopy, delgado breast bx and lymph node in neck bx Past Anesthesia/Blood Transfusion Reactions: Previous Problems w/ Anesthesia, Postoperative Nausea & Vomiting (PONV) Additional Past Anesthesia/Blood Transfusion Reaction / Comm: "Very hard time coming out of anesthesia" Smoking Status: Never smoker - Past Family History Mother Family Medical History: Eye Disorder, Osteoarthritis (OA) Additional Family Medical History / Comment(s): IBS Father History Unknown: Yes Medications and Allergies Home Medications Medication Instructions Recorded Confirmed Type Boswellia 1 tab PO DAILY 10/26/17 10/26/17 History Cholecalciferol [Vitamin D3] 5,000 unit PO DAILY 10/26/17 10/26/17 History Cranberry Fruit Extract [Cranberry] 500 mg PO DAILY 10/26/17 10/26/17 History Fish Oil(Unknown) 1 cap PO DAILY 10/26/17 10/26/17 History Glucosam/Darinel-Msm1/C/Tino/Bosw 1 tab PO DAILY 10/26/17 10/26/17 History [Glucosamine-Chondroitin Tablet] L.acidoph,Paracasei, B.lactis 1 cap PO DAILY 10/26/17 10/26/17 History [Probiotic] Vitamin B-6(Unknown) 1 tab PO DAILY 10/26/17 10/26/17 History Allergies Allergy/AdvReac Type Severity Reaction Status Date / Time levofloxacin [From Levaquin] Allergy Rash/Hives Verified 10/26/17 18:02 nitrofurantoin Allergy Rash/Hives Verified 10/26/17 18:02 [From Macrobid] sulfamethoxazole Allergy Rash/Hives Verified 10/26/17 18:02 [From Bactrim] trimethoprim [From Bactrim] Allergy Rash/Hives Verified 10/26/17 18:02 acetaminophen [From Midol] AdvReac Confusion Verified 10/26/17 18:02 aspirin [From Pamprin Max] AdvReac Confusion Verified 10/26/17 18:02 caffeine [From Pamprin Max] AdvReac Confusion Verified 10/26/17 18:02 dextromethorphan AdvReac Unknown Verified 10/26/17 18:02 [From NyQuil] diphenhydramine AdvReac Unknown Verified 10/26/17 18:02 [From Benadryl] doxylamine [From NyQuil] AdvReac Unknown Verified 10/26/17 18:02 pamabrom [From Midol] AdvReac Confusion Verified 10/26/17 18:02 pseudoephedrine [From NyQuil] AdvReac Unknown Verified 10/26/17 18:02 Physical Exam Vitals: Vital Signs Temp Pulse Pulse Resp BP BP Pulse Ox 10/27/17 08:30 89 16 10/27/17 06:51 98.2 F 89 16 102/52 95 10/26/17 20:57 98.5 F 95 18 100/65 97 10/26/17 18:11 98.4 F 94 18 140/88 98 10/26/17 16:18 89 18 119/65 99 Intake and Output 10/27/17 10/27/17 10/27/17 06:59 14:59 22:59 Intake Total 240 Balance 240 Intake: Oral 240 Other: Voiding Method Toilet Toilet # Voids 1 2 Weight 86.183 kg General: In no acute distress. HEENT: Mucosa moist. Neck: Neck supple. Lymph: No cervical/supraclavicular LAD. Lungs: Respiratory effort normal. Heart: Regular rate. No LE edema. Abdomen: Soft, nontender, nondistended, with positive bowel sounds. MSK: 4/4 strength in all 4 extremities. Neuro: Alert and oriented 3. Skin: No jaundice or rash. Psych: Appropriate affect. Results CBC & Chem 7: 10/27/17 06:27 10/27/17 06:27 Labs: Abnormal Lab Results - Last 24 Hours (Table) 10/26/17 10/26/17 10/27/17 Range/Units 14:40 14:40 06:27 WBC 15.0 H (3.8-10.6) k/uL Plt Count 141 L (150-450) k/uL Neutrophils # 7.8 H (1.3-7.7) k/uL Neutrophils # (Manual) 11.50 H (1.3-7.7) k/uL Lymphocytes # 0.3 L (1.0-4.8) k/uL Lymphocytes # (Manual) 0.30 L (1.0-4.8) k/uL Metamyelocytes # (Man) 0.75 H (0) k/uL Myelocytes # (Manual) 1.95 H (0) k/uL Chloride (98-107) mmol/L Calcium (8.4-10.2) mg/dL AST 60 H (14-36) U/L 10/27/17 Range/Units 06:27 WBC (3.8-10.6) k/uL Plt Count (150-450) k/uL Neutrophils # (1.3-7.7) k/uL Neutrophils # (Manual) (1.3-7.7) k/uL Lymphocytes # (1.0-4.8) k/uL Lymphocytes # (Manual) (1.0-4.8) k/uL Metamyelocytes # (Man) (0) k/uL Myelocytes # (Manual) (0) k/uL Chloride 108 H (98-107) mmol/L Calcium 8.2 L (8.4-10.2) mg/dL AST (14-36) U/L Microbiology - Last 24 Hours (Table) 10/26/17 14:40 Urine Culture - Preliminary Urine,Voided Chest x-ray: report reviewed CT scan - abdomen: report reviewed CT scan - pelvis: report reviewed Assessment and Plan Assessment: Fever Breast cancer Chemotherapy Mild thrombocytopenia, due to chemotherapy UTI Plan: Ms. Berumen is a pleasant 52 yo female with recently diagnosed left breast cancer, ER/MD positive, HER2 negative by FISH, currently receiving care at [facility] in [place] on chemotherapy who is here for fever. She is not neutropenic. Found to have mild UTI. Also with a sore throat likely due to pharyngitis. Afebrile since admission and cultures pending. Agree with antibiotics and ID consult. Will hold chemotherapy while inpatient, although pt not currently due for chemo until 11/06/17. She did mention that she would like to receive the rest of her care here with Dr. Dorantes. Will obtain her records and have her follow-up with Dr. Dorantes as an outpatient when she is stable and discharged. She does also have mild bicytopenia, likely due to chemotherapy. No indications for transfusion at this time, and this can be monitored. Discussed with pt and her and they are agreeable to the plan.
[2017-10-27] MEDS: DOCUSATE 100 MG CAP PO SCH (17:02)
[2017-10-27] MEDS: ONDANSETRON 4 MG/2 ML VIAL IVP PRN (18:52)
[2017-10-28] MEDS: SODIUM CHLORIDE 0.9% 1,000 ML IV SCH ×3 (00:02→17:35)
[2017-10-28] MEDS: ONDANSETRON 4 MG/2 ML VIAL IVP PRN ×3 (01:09→17:34)
[2017-10-28] MEDS: VANCOMYCIN 1,500 MG in SODIUM CHLORIDE 0.9% 250 ML IVPB SCH ×2 (06:10→17:34)
[2017-10-28] MEDS: CHOLECALCIFEROL 1,000 UNIT TAB PO SCH (07:04)
[2017-10-28] MEDS: THIAMINE 100 MG TAB PO SCH (07:05)
[2017-10-28 07:12] LABS: Basophils % (A) 1 %; Eosinophils # (A) 0.1 k/uL (0-0.7); Eosinophils % (A) 2 %; HCT 34.2 % (34.0-46.0); HGB 11.1 gm/dL (11.4-16.0); Lymphocytes # (A) 0.4 k/uL (1.0-4.8); Lymphocytes % (A) 12 %; MCH 28.8 pg (25.0-35.0); MCHC 32.5 g/dL (31.0-37.0); MCV 88.8 fL (80.0-100.0); Mean Platelet Volume 8.7; Monocytes # (A) 0.2 k/uL (0-1.0); Monocytes % (A) 6 %; Neutrophils % (A) 78 %; Platelet Count 140 k/uL (150-450); RBC 3.86 m/uL (3.80-5.40); RDW 12.5 % (11.5-15.5); WBC 3.8 k/uL (3.8-10.6)
[2017-10-28] MEDS: DOCUSATE 100 MG CAP PO SCH (07:13)
[2017-10-28] MEDS: PANTOPRAZOLE 40 MG/10 ML VIAL IV SCH (07:18)
[2017-10-28] MEDS: CEFEPIME 2 GM in SODIUM CHLORIDE 0.9% 50 ML IVPB SCH ×2 (07:19→15:34)
[2017-10-28 07:24] LABS: Anion Gap 7 mmol/L; Blood Urea Nitrogen 9 mg/dL (7-17); Calcium 8.4 mg/dL (8.4-10.2); Carbon Dioxide 25 mmol/L (22-30); Chloride 105 mmol/L (98-107); Glucose 110 mg/dL (74-99); Potassium 4.3 mmol/L (3.5-5.1); Sodium 137 mmol/L (137-145)
[2017-10-28] MEDS: MORPHINE SULFATE 4 MG/ML SYRINGE IVP PRN ×2 (15:32→19:45)
--- NOTE | 2017-10-28 16:20 | PN ---
PROGRESS NOTE DATE OF SERVICE: 10/28/2017. INTERVAL HISTORY: This 52-year-old woman who was admitted with fever and possible sepsis secondary to the UTI is on broad-spectrum IV antibiotics. The patient is also complaining of some abdominal discomfort. Patient has some diarrhea. The diabetes is acting up according to the patient. No chest pain. No palpitations. No fever. EXAM: Alert and oriented x3. Pulse 88, blood pressure 99/60, respirations 16, temperature 97.2, pulse ox 99% on room air. HEENT: Conjunctivae normal. NECK: No jugular venous distention. CARDIOVASCULAR: S1, S2 muffled. RESPIRATORY: Breath sounds diminished in the bases. No rhonchi. No crackles. ABDOMEN: Soft, nontender. No mass palpable. LEGS: No edema. NERVOUS SYSTEM: No focal deficits. LABS: WBC 3.8, hemoglobin 11.1. ASSESSMENT: 1. Fever possible sepsis secondary to urinary tract infection, present on admission. 2. Carcinoma of the breast, on chemotherapy. 3. Abdominal pain and diarrhea, rule out antibiotic associated diarrhea or irritable bowel syndrome. 4. Increased WBC. 5. History of ulcerative colitis. 6. History of frequent migraines. 7. History of chronic cough. 8. History of degenerative joint disease. 9. Obesity with body mass index of the 32.6. RECOMMENDATIONS AND DISCUSSION: I recommend to continue current medications, symptomatic treatment. I recommend C diff checking. Continue rest of medications and symptomatic treatment will be provided. Further recommendations to follow. MMODL / IJN: [id number] /
[2017-10-29] MEDS: ONDANSETRON 4 MG/2 ML VIAL IVP PRN ×2 (00:13→05:45)
[2017-10-29] MEDS: MORPHINE SULFATE 4 MG/ML SYRINGE IVP PRN ×4 (00:13→09:15)
[2017-10-29] MEDS: CEFEPIME 2 GM in SODIUM CHLORIDE 0.9% 50 ML IVPB SCH ×4 (00:14→23:23)
[2017-10-29] MEDS: SODIUM CHLORIDE 0.9% 1,000 ML IV SCH ×3 (00:24→14:48)
[2017-10-29 04:32] LABS: HCT 31.4 % (34.0-46.0); HGB 10.8 gm/dL (11.4-16.0); MCH 30.4 pg (25.0-35.0); MCHC 34.3 g/dL (31.0-37.0); MCV 88.4 fL (80.0-100.0); Mean Platelet Volume 7.8; Platelet Count 124 k/uL (150-450); RBC 3.55 m/uL (3.80-5.40); RDW 12.7 % (11.5-15.5); WBC 2.3 k/uL (3.8-10.6)
[2017-10-29 04:33] LABS: Anion Gap 7 mmol/L; Blood Urea Nitrogen 9 mg/dL (7-17); Calcium 8.2 mg/dL (8.4-10.2); Carbon Dioxide 25 mmol/L (22-30); Chloride 104 mmol/L (98-107); Glucose 95 mg/dL (74-99); Potassium 4.1 mmol/L (3.5-5.1); Sodium 136 mmol/L (137-145)
[2017-10-29] MEDS ORDERED: VANCOMYCIN TROUGH DUE 1 EACH MISC MISCELLANE ONE (05:00)
[2017-10-29] MEDS: VANCOMYCIN 1,500 MG in SODIUM CHLORIDE 0.9% 250 ML IVPB SCH ×2 (05:49→17:37)
[2017-10-29 07:37] LABS: Band Neutrophils % 3 %; Eosinophils # (M) 0.07 k/uL (0-0.7); Large Platelets Present; Lymphocytes # (M) 0.99 k/uL (1.0-4.8); Metamyelocytes # (M) 0.07 k/uL (0); Metamyelocytes % 3 %; Monocytes # (M) 0.35 k/uL (0-1.0); Myelocytes # (M) 0.07 k/uL (0); Myelocytes % 3 %; Neutrophils % (M) 32 %; Nucleated Red Blood Cells 0 /100 WBC (0-0); Total Cells Counted 200
[2017-10-29 07:38] LABS: Polychromasia Present
[2017-10-29] MEDS: CHOLECALCIFEROL 1,000 UNIT TAB PO SCH (09:07)
[2017-10-29] MEDS: PANTOPRAZOLE 40 MG/10 ML VIAL IV SCH (09:07)
[2017-10-29] MEDS: DOCUSATE 100 MG CAP PO SCH (09:07)
[2017-10-29] MEDS: THIAMINE 100 MG TAB PO SCH (09:07)
[2017-10-29] MEDS: HYDROcodone/APAP 5-325MG 1 EACH TAB PO PRN ×3 (12:10→23:23)
--- NOTE | 2017-10-29 12:18 | P.PN ---
Subjective Progress Note Date: 10/29/17 Principal diagnosis: Breast cancer, sequela from chemotherapy Pt seen on /u, she continues to feel very weak, her abd pain is only controlled with IV morphine at this time, she states nausea, using zofran PRN, no vomiting, she had "17" diarrhea episodes yesterday, denied bloody stool, had abd cramping and tenderness, the leg and back pain are slightly improved. Objective - Vital Signs Vital signs: Vital Signs Temp 97.6 F 10/29/17 05:00 Pulse 84 10/29/17 05:00 Resp 16 10/29/17 05:00 BP 119/57 10/29/17 05:00 Pulse Ox 91 L 10/29/17 05:00 Intake & Output 10/28/17 10/29/17 10/29/17 18:59 06:59 18:59 Intake Total 160 2130 Output Total 4 Balance 156 2130 Weight 90.265 kg Intake: Intake, IV Titration 1060 Amount Cefepime 2 gm In Sodium 100 Chloride 0.9% 50 ml @ 100 mls/hr IVPB Q8HR IRENE Rx# :[id number] Sodium Chloride 0.9% 1, 960 000 ml @ 120 mls/hr IV . Q8H20M IRENE Rx#:[id number] Oral 160 1070 Output: Stool 4 Other: Voiding Method Toilet Toilet Toilet # Voids 2 3 - Constitutional General appearance: Present: cooperative, mild distress, obese - EENT EENT Comment(s): dry mucus membranes, no ulcers, tongue is coated Eyes: Present: anicteric sclerae - Respiratory Respiratory: bilateral: CTA - Cardiovascular Heart sounds: normal: S1, S2 - Gastrointestinal General gastrointestinal: Present: normal bowel sounds, soft Localized gastrointestinal: tender: LLQ, epigastric periumbilical - Neurologic Neurologic: Present: CNII-XII intact - Musculoskeletal Musculoskeletal: Present: generalized weakness, strength equal bilaterally - Psychiatric Psychiatric: Present: A&O x's 3, appropriate affect, intact judgment & insight - Labs CBC & Chem 7: 10/29/17 04:13 10/29/17 04:13 Labs: Abnormal Lab Results - Last 24 Hours (Table) 10/29/17 10/29/17 Range/Units 04:13 04:13 WBC 2.3 L (3.8-10.6) k/uL RBC 3.55 L (3.80-5.40) m/uL Hgb 10.8 L (11.4-16.0) gm/dL Hct 31.4 L (34.0-46.0) % Plt Count 124 L (150-450) k/uL Neutrophils # (Manual) 0.80 L (1.3-7.7) k/uL Lymphocytes # (Manual) 0.99 L (1.0-4.8) k/uL Metamyelocytes # (Man) 0.07 H (0) k/uL Myelocytes # (Manual) 0.07 H (0) k/uL Sodium 136 L (137-145) mmol/L Calcium 8.2 L (8.4-10.2) mg/dL Microbiology - Last 24 Hours (Table) 10/26/17 14:40 Blood Culture - Preliminary Blood No Growth after 48 hours Assessment and Plan (1) Breast CA Narrative/Plan: Pt is s/p 1st chemo with rather significant side effects, her CBC continues to drop as would be expected as she only 6 days out from treatment, butch will be in another 3-5 days. Records fron [facility] will be reviewed, we will coordinate and continue with their plan of care. F/U will be scheduled. Cont supportive care for chemo side effects, medications PRN Current Visit: Yes Status: Acute Priority: High Code(s): C50.919 - MALIGNANT NEOPLASM OF UNSP SITE OF UNSPECIFIED FEMALE BREAST SNOMED Code(s): 942815560 (2) Status post chemotherapy Current Visit: Yes Status: Acute Priority: High Code(s): Z92.21 - PERSONAL HISTORY OF ANTINEOPLASTIC CHEMOTHERAPY SNOMED Code(s): 373170224 (3) Antineoplastic chemotherapy induced pancytopenia Narrative/Plan: NO transfusions needed today. Pt received GCSF 5 days ago. Current Visit: Yes Status: Acute Priority: Medium Code(s): D61.810 - ANTINEOPLASTIC CHEMOTHERAPY INDUCED PANCYTOPENIA; T45.1X5A - ADVERSE EFFECT OF ANTINEOPLASTIC AND IMMUNOSUP DRUGS, INIT SNOMED Code(s): 539224238105164 Plan: Case discussed with Attending. GI consulted for pt report of 17 diarrhea stools, history of untreated IBS and UC disease. Pt will need Gastroenterology follow up to continue with chemo
[2017-10-29] MEDS: SALT AND SODA MOUTHWASH 1,000 ML PO SCH ×4 (13:41→23:32)
--- NOTE | 2017-10-29 13:51 | PN ---
PROGRESS NOTE DATE OF SERVICE: 10/29/2017. HISTORY: This 52-year-old woman who had recent chemotherapy was admitted with possible sepsis secondary to UTI. Patient is on broad spectrum IV antibiotics. The patient is also complaining of abdominal symptoms, probably in relation with previous history of IBS or ulcerative colitis. No chest pain. No palpitations. No fever. EXAM: Alert and oriented x2. Pulse 84, blood pressure 119/56, respirations 16, temperature 97.6, pulse ox 98% room air. HEENT: Conjunctivae pink. Oral mucosa moist. CARDIOVASCULAR: S1 and S2 muffled. LUNGS: Breath sounds diminished at the bases. No rhonchi, no crackles. ABDOMEN: Soft, mild diffuse tenderness. No guarding, no rigidity, no mass palpable. EXTREMITIES: Legs, no edema, no cyanosis. NERVOUS SYSTEM: No focal deficits. LABS: WBC 2.2, hemoglobin 10.8, platelets 124,000. Sodium is 136. The cultures are negative so far. ASSESSMENT: 1. Fever possible sepsis secondary to urinary tract infection present on admission. 2. Carcinoma of the breast, status post recent chemotherapy. 3. Mild pancytopenia, possibly secondary to chemotherapy. 4. Abdominal pain and diarrhea, possibly antibiotic associated diarrhea. 5. History of irritable bowel syndrome, ulcerative colitis. 6. Increased WBC. 7. History of frequent migraines. 8. Chronic cough. 9. History of degenerative joint disease. 10.Obesity with body mass index 32.6. RECOMMENDATIONS AND DISCUSSION: I recommend to continue current management. Symptomatic treatment. Otherwise, closely follow with Hematology/Oncology and Gastroenterology consultation also has been sought. Guarded prognosis. Further recommendations to follow. MMODL / IJN: [id number] /
[2017-10-29] MEDS: KETOROLAC 30 MG/ML 1 ML VIAL IVP PRN (18:54)
[2017-10-30] MEDS: KETOROLAC 30 MG/ML 1 ML VIAL IVP PRN (01:43)
[2017-10-30] MEDS: SODIUM CHLORIDE 0.9% 1,000 ML IV SCH ×2 (01:45→11:55)
[2017-10-30] MEDS: VANCOMYCIN 1,500 MG in SODIUM CHLORIDE 0.9% 250 ML IVPB SCH (06:21)
[2017-10-30] MEDS: SALT AND SODA MOUTHWASH 1,000 ML PO SCH ×2 (06:22→12:00)
[2017-10-30] MEDS: HYDROcodone/APAP 5-325MG 1 EACH TAB PO PRN (06:23)
[2017-10-30 07:21] VITALS: BP 118/80; PULSE 89; TEMP 98.5
[2017-10-30 07:43] LABS: Anion Gap 5 mmol/L; Blood Urea Nitrogen 7 mg/dL (7-17); Calcium 8.6 mg/dL (8.4-10.2); Carbon Dioxide 29 mmol/L (22-30); Chloride 104 mmol/L (98-107); Glucose 93 mg/dL (74-99); Potassium 4.3 mmol/L (3.5-5.1); Sodium 138 mmol/L (137-145)
[2017-10-30 07:48] LABS: HGB 11.4 gm/dL (11.4-16.0); MCH 29.7 pg (25.0-35.0); MCHC 33.6 g/dL (31.0-37.0); MCV 88.1 fL (80.0-100.0); Mean Platelet Volume 8.2; Platelet Count 167 k/uL (150-450); RBC 3.85 m/uL (3.80-5.40); RDW 12.7 % (11.5-15.5)
[2017-10-30] MEDS: THIAMINE 100 MG TAB PO SCH (08:37)
[2017-10-30] MEDS: PANTOPRAZOLE 40 MG/10 ML VIAL IV SCH (08:37)
[2017-10-30] MEDS: CHOLECALCIFEROL 1,000 UNIT TAB PO SCH (08:37)
[2017-10-30] MEDS: DOCUSATE 100 MG CAP PO SCH (08:37)
[2017-10-30] MEDS: CEFEPIME 2 GM in SODIUM CHLORIDE 0.9% 50 ML IVPB SCH (08:37)
[2017-10-30 10:01] LABS: Band Neutrophils % 12 %; Eosinophils # (M) 0.18 k/uL (0-0.7); Lymphocytes # (M) 3.03 k/uL (1.0-4.8); Metamyelocytes # (M) 1.25 k/uL (0); Metamyelocytes % 7 %; Monocytes # (M) 2.31 k/uL (0-1.0); Myelocytes % 18 %; Neutrophils % (M) 34 %; Nucleated Red Blood Cells 1 /100 WBC (0-0); Total Cells Counted 200; WBC 17.8 k/uL (3.8-10.6)
[2017-10-30 10:02] LABS: Polychromasia Present; Toxic Vacuolation Present
[2017-10-30] MEDS ORDERED: HYDROcodone/APAP 5-325MG 1 EACH TAB PO PRN (11:36)
--- NOTE | 2017-10-30 11:59 | P.CONS ---
History of Present Illness - Reason for Consult Consult date: 10/30/17 abdominal pain hx IBS/ questionable IBD Requesting physician: Devan Davidson - History of Present Illness 52-year-old female recently diagnosed with breast cancer received chemotherapy week ago presents with fever T-Max 100.2 acute lower abdominal pain nonbloody diarrhea. Patient reports a history of possible ulcerative colitis about 12 years ago. At that time she was experiencing lower abdominal pain with rectal bleeding but thinks EGD colonoscopy was possibly performed. She was told she had ulcerative colitis however she has not had follow-up since then nor was she placed on maintenance medications for inflammatory bowel disease. She developed abdominal pain a week ago cramping labor pain like the lower abdomen. Diarrhea did not start until she was admitted to the hospital. C. difficile negative. Reports passing 17 BMs yesterday; passed 3 today. Denies hematemesis hematochezia melena. CT abdomen and pelvis reported no acute findings. She was recently placed on antibiotics prior to admission for UTIs. White count 2.3-17.8. Preliminary blood cultures no growth. LFTs unremarkable. Review of Systems Constitutional: Admitted with fever denies, chills, sweats, weight gain, or loss. HEENT: Negative for migraines, blurred vision or loss, earaches, drainage, tinnitus, oral mucosal lesions, dysphagia, or odynophagia. CARDIAC: Negative for chest pain, arrhythmias, or palpitation. RESPIRATORY: Negative for shortness of breath, hemoptysis, cough, or sputum production. GI: See HPI for pertinent findings. : Negative for hematuria, urgency, frequency, polyuria, or dysuria. GYNc: Negative vaginal discharge. MUSCULOSKELETAL: Negative for muscle aches, swelling, arthritis, and arthralgias. NEUROLOGIC: Negative for stroke or TIA. ENDOCRINE: Negative for thyroid problems. SKIN: Negative for rash or itching. PSYCHIATRIC: Negative history for depression and anxiety Past Medical History Past Medical History: Cancer Additional Past Medical History / Comment(s): IBS, ulcerative colitis, frequent migraines, had chronic cough in past that was d/t nay-was tx and resolved, left breast ca -had first chemo tc on [facility]10/23/17 [facility] [place] History of Any Multi-Drug Resistant Organisms: None Reported Past Surgical History: Orthopedic Surgery, Tubal Ligation Additional Past Surgical History / Comment(s): tail bone fractured and removed in 9th grade, laproscopy, hysteroscopy, delgado breast bx and lymph node in neck bx Past Anesthesia/Blood Transfusion Reactions: Previous Problems w/ Anesthesia, Postoperative Nausea & Vomiting (PONV) Additional Past Anesthesia/Blood Transfusion Reaction / Comm: "Very hard time coming out of anesthesia" Smoking Status: Never smoker - Past Family History Mother Family Medical History: Eye Disorder, Osteoarthritis (OA) Additional Family Medical History / Comment(s): IBS Father History Unknown: Yes Medications and Allergies Home Medications Medication Instructions Recorded Confirmed Type Boswellia 1 tab PO DAILY 10/26/17 10/26/17 History Cholecalciferol [Vitamin D3] 5,000 unit PO DAILY 10/26/17 10/26/17 History Cranberry Fruit Extract [Cranberry] 500 mg PO DAILY 10/26/17 10/26/17 History Fish Oil(Unknown) 1 cap PO DAILY 10/26/17 10/26/17 History Glucosam/Darinel-Msm1/C/Tino/Bosw 1 tab PO DAILY 10/26/17 10/26/17 History [Glucosamine-Chondroitin Tablet] L.acidoph,Paracasei, B.lactis 1 cap PO DAILY 10/26/17 10/26/17 History [Probiotic] Vitamin B-6(Unknown) 1 tab PO DAILY 10/26/17 10/26/17 History Acetaminophen Tab [Tylenol] 650 mg PO Q6HR PRN tab 10/30/17 Rx Dicyclomine [Bentyl] 10 mg PO QID #30 cap 10/30/17 Rx Docusate [Colace] 100 mg PO DAILY PRN #20 cap 10/30/17 Rx HYDROcodone/APAP 5-325MG [[place] 1 each PO Q6HR PRN #15 tab 10/30/17 Rx 5-325] Prochlorperazine [Compazine] 10 mg PO BID #20 tab 10/30/17 Rx Allergies Allergy/AdvReac Type Severity Reaction Status Date / Time levofloxacin [From Levaquin] Allergy Rash/Hives Verified 10/26/17 18:02 nitrofurantoin Allergy Rash/Hives Verified 10/26/17 18:02 [From Macrobid] sulfamethoxazole Allergy Rash/Hives Verified 10/26/17 18:02 [From Bactrim] trimethoprim [From Bactrim] Allergy Rash/Hives Verified 10/26/17 18:02 acetaminophen [From Midol] AdvReac Confusion Verified 10/26/17 18:02 aspirin [From Pamprin Max] AdvReac Confusion Verified 10/26/17 18:02 caffeine [From Pamprin Max] AdvReac Confusion Verified 10/26/17 18:02 dextromethorphan AdvReac Unknown Verified 10/26/17 18:02 [From NyQuil] diphenhydramine AdvReac Unknown Verified 10/26/17 18:02 [From Benadryl] doxylamine [From NyQuil] AdvReac Unknown Verified 10/26/17 18:02 pamabrom [From Midol] AdvReac Confusion Verified 10/26/17 18:02 pseudoephedrine [From NyQuil] AdvReac Unknown Verified 10/26/17 18:02 Physical Exam Vitals: Vital Signs Temp Pulse Resp BP Pulse Ox 10/30/17 06:56 98.5 F 89 16 118/80 95 10/29/17 21:59 98.9 F 92 16 121/60 92 L 10/29/17 14:16 98.5 F 93 16 110/70 93 L Intake and Output 10/29/17 10/30/17 10/30/17 22:59 06:59 14:59 Intake Total 1080 980 Balance 1080 980 Intake: IV 480 980 Sodium Chloride 0.9% 1, 480 980 000 ml @ 120 mls/hr IV . Q8H20M COUNTS INCLUDE 234 BEDS AT THE [facility] Rx#:[id number] Oral 600 Other: Voiding Method Toilet General appearance: The patient is alert, oriented, in no acute distress. HET: Head is normocephalic and atraumatic. Pupils are equal and reactive. Oropharynx is clear without lesions. Neck: Supple without lymphadenopathy. Trachea midline. Heart: S1 S2. Regular rate and rhythm. Lungs: No crackles or wheezes are heard. Abdomen: Soft, mild tenderness left lower quadrant/midline, mildly bloated with bowel sounds. No peritoneal signs. No palpable organomegaly or masses. Extremities: Normal skin color and turgor. No cyanosis, rash, ulceration, clubbing, or edema. Radial and pedal pulses are 2/4 bilaterally. Neurological: No focal deficits. Strength and sensation are grossly intact. Results CBC & Chem 7: 10/30/17 06:52 10/30/17 06:52 Labs: Abnormal Lab Results - Last 24 Hours (Table) 10/30/17 Range/Units 06:52 WBC 17.8 H (3.8-10.6) k/uL Neutrophils # (Manual) 8.10 H (1.3-7.7) k/uL Monocytes # (Manual) 2.31 H (0-1.0) k/uL Metamyelocytes # (Man) 1.25 H (0) k/uL Myelocytes # (Manual) 3.20 H (0) k/uL Nucleated RBCs 1 H (0-0) /100 WBC Microbiology - Last 24 Hours (Table) 10/26/17 14:40 Blood Culture - Preliminary Blood No Growth after [address] scan - abdomen: report reviewed (Dr. Dejesus) Assessment and Plan (1) Abdominal pain Narrative/Plan: Acute abdominal pain nonbloody diarrhea suspect exacerbation of IBS possible gastroenteritis possible medication-induced diarrhea. Underlying self-limiting infectious diarrhea cannot be excluded. Questionable history of inflammatory bowel disease. Status: Acute Code(s): R10.9 - UNSPECIFIED ABDOMINAL PAIN SNOMED Code(s): 67940978 (2) Diarrhea Status: Acute Code(s): R19.7 - DIARRHEA, UNSPECIFIED SNOMED Code(s): 05196973 (3) Breast CA Status: Acute Priority: High Code(s): C50.919 - MALIGNANT NEOPLASM OF UNSP SITE OF UNSPECIFIED FEMALE BREAST SNOMED Code(s): 070500963 (4) Fever Status: Acute Code(s): R50.9 - FEVER, UNSPECIFIED SNOMED Code(s): 855138995 (5) H/O irritable bowel syndrome Status: Acute Code(s): Z87.19 - PERSONAL HISTORY OF OTHER DISEASES OF THE DIGESTIVE SYSTEM SNOMED Code(s): 57564236641576 Plan: 1. Additional stool studies requested. Bentyl 10 mg 4 times daily. Outpatient endoscopy discussed inpatient endoscopy not planned at this time. 2. Continue supportive measures. We'll follow closely with you. Return to office in 1-2 weeks for reevaluation. Thank you for this kind referral and the opportunity to participate in the care of your patient. This consultation was discussed with Dr. Dejesus. The impression and plan of care have been directed as dictated.
[2017-10-30] MEDS ORDERED: PROCHLORPERAZINE 10 MG TAB PO SCH (12:00)
[2017-10-30 12:36] VITALS: BMI 34.1
[2017-10-30] MEDS ORDERED: DICYCLOMINE 10 MG CAP PO SCH (13:00)
--- NOTE | 2017-10-30 14:38 | P.PN ---
Subjective Progress Note Date: 10/30/17 Principal diagnosis: Breast cancer, sequela from chemotherapy Pt seen today in f/u, she has had 3 diarrhea stools today, abd pain persists, she is "queezy" most of the time, denies vomiting, no fevers, oral irritation, her appetite is fair/poor, she is weak, no TONY, cough, swelling or bleeding. Objective - Vital Signs Vital signs: Vital Signs Temp 98.5 F 10/30/17 06:56 Pulse 89 10/30/17 06:56 Resp 16 10/30/17 06:56 BP 118/80 10/30/17 06:56 Pulse Ox 95 10/30/17 06:56 Intake & Output 10/29/17 10/30/17 10/30/17 18:59 06:59 18:59 Intake Total 1010 2060 600 Balance 1010 2060 600 Weight 90.265 kg Intake: IV 1460 600 Sodium Chloride 0.9% 1, 1460 600 000 ml @ 120 mls/hr IV . Q8H20M [facility] Rx#:[id number] Intake, IV Titration 1010 Amount Cefepime 2 gm In Sodium 50 Chloride 0.9% 50 ml @ 100 mls/hr IVPB Q8HR [facility] Rx# :[id number] Sodium Chloride 0.9% 1, 960 000 ml @ 120 mls/hr IV . Q8H20M [facility] Rx#:[id number] Oral 600 Other: Voiding Method Toilet Toilet - Constitutional General appearance: Present: cooperative, no acute distress, obese - EENT Eyes: Present: anicteric sclerae ENT: Present: normal oropharynx - Respiratory Respiratory: bilateral: CTA - Cardiovascular Heart sounds: normal: S1, S2 - Gastrointestinal General gastrointestinal: Present: normal bowel sounds, soft, tenderness Localized gastrointestinal: tender: diffuse - Integumentary Integumentary: Present: normal - Neurologic Neurologic: Present: CNII-XII intact - Musculoskeletal Musculoskeletal: Present: generalized weakness, strength equal bilaterally - Psychiatric Psychiatric: Present: A&O x's 3, appropriate affect, intact judgment & insight - Labs CBC & Chem 7: 10/30/17 06:52 10/30/17 06:52 Labs: Abnormal Lab Results - Last 24 Hours (Table) 10/30/17 Range/Units 06:52 WBC 17.8 H (3.8-10.6) k/uL Neutrophils # (Manual) 8.10 H (1.3-7.7) k/uL Monocytes # (Manual) 2.31 H (0-1.0) k/uL Metamyelocytes # (Man) 1.25 H (0) k/uL Myelocytes # (Manual) 3.20 H (0) k/uL Nucleated RBCs 1 H (0-0) /100 WBC Microbiology - Last 24 Hours (Table) 10/26/17 14:40 Blood Culture - Preliminary Blood No Growth after 72 hours Assessment and Plan (1) Breast CA Narrative/Plan: Pt is going to continue curative intent, neoadjuvant chemotherapy [facility] Copies of records have been obtained. There are no plans to delay treatment at this time but, pt will be seen prior to next cycle for evaluation. Current Visit: Yes Status: Acute Priority: High Code(s): C50.919 - MALIGNANT NEOPLASM OF UNSP SITE OF UNSPECIFIED FEMALE BREAST SNOMED Code(s): 184560134 (2) Status post chemotherapy Current Visit: Yes Status: Acute Priority: High Code(s): Z92.21 - PERSONAL HISTORY OF ANTINEOPLASTIC CHEMOTHERAPY SNOMED Code(s): 100455974 (3) Antineoplastic chemotherapy induced pancytopenia Narrative/Plan: WBC is elevated today r/t GCSF, anemia is very mild, platelets have recovered. Current Visit: Yes Status: Acute Priority: Medium Code(s): D61.810 - ANTINEOPLASTIC CHEMOTHERAPY INDUCED PANCYTOPENIA; T45.1X5A - ADVERSE EFFECT OF ANTINEOPLASTIC AND IMMUNOSUP DRUGS, INIT SNOMED Code(s): 250665958942856 Plan: GI has seen pt with plans for further stool studies and outpatient f/u. Case discussed with [facility] [employer] and they have started bentyl. Pt will cont current analgesics for pain.
--- NOTE | 2017-10-30 22:52 | DS ---
DISCHARGE SUMMARY DATE OF SERVICE: 10/30/2017 FINAL DIAGNOSES: 1. Fever, possible sepsis secondary to urinary tract infection, present on admission. 2. Carcinoma of breast, status post recent chemotherapy. 3. Mild pancytopenia, possibly secondary to chemotherapy. 4. Abdominal pain and diarrhea, possibly antibiotic-associated diarrhea, improved. 5. History of irritable bowel syndrome, ulcerative colitis. 6. Increased white count, improved. 7. History of frequent migraines. 8. Chronic cough. 9. History of degenerative joint disease. 10.Obesity with body mass index of 32.6. DISCHARGE DISPOSITION: The patient will be discharged in stable condition with guarded prognosis. HISTORY OF PRESENT ILLNESS: This 52-year-old woman with a past medical history of multiple medical problems was admitted with fever possibly secondary to sepsis secondary to UTI. Patient was treated with antibiotics. Patient improved significantly. The white count was 17.8 today. The patient was seen by Hematology/Oncology and Gastroenterology, who recommended outpatient followup. On exam, vitals are stable. CARDIOVASCULAR SYSTEM: S1, S2 muffled. ABDOMEN: Soft. NERVOUS SYSTEM: No focal deficit. DISCHARGE ADVICE AND MEDICATIONS: 1. Diet is soft, bland. 2. Activity limited until followup. 3. Follow up with Dr. Melchor in 2-3 days. 4. Follow up with Dr. Dorantes and Dr. Quach as advised for consideration for outpatient colonoscopy. 5. Boswellia 1 tablet p.o. daily. 6. Vitamin D3 5000 daily. 7. Cranberry daily. 8. Fish oil 1 p.o. daily. 9. Glucosamine daily. 10.Lactobacillus acidophilus daily. 11.Vitamin B6 daily. 12.Tylenol 650 q.6 p.r.n. 13.Bentyl 10 mg q.i.d. p.r.n. 14.Colace 100 mg daily p.r.n. Hold if the patient has diarrhea. 15.[place] 5 mg q.6 p.r.n. 16.Compazine 10 mg p.o. b.i.d. Once again, the patient will be discharged in stable condition with guarded prognosis. MMODL / IJN: [id number] /
[2017-10-31] MEDS ORDERED: PANTOPRAZOLE 40 MG TABLET PO SCH (09:00)
== END 2017-10-30 15:45 | disposition home or self-care (01) | DRG 871 ==
LOC: EC 13:38 → 5ONC 17:55
PROVIDERS: ADMIT Hospitalist; ATTEND Hospitalist
DX: A41.9 Sepsis, unspecified organism (principal); D61.810 Antineoplastic chemotherapy induced pancytopenia; C77.9 Secondary and unspecified malignant neoplasm of lymph node, unspecified; N39.0 Urinary tract infection, site not specified; K52.1 Toxic gastroenteritis and colitis; A09 Infectious gastroenteritis and colitis, unspecified; C50.912 Malignant neoplasm of unspecified site of left female breast; E66.9 Obesity, unspecified; K44.9 Diaphragmatic hernia without obstruction or gangrene; T45.1X5A Adverse effect of antineoplastic and immunosuppressive drugs, initial encounter; G43.909 Migraine, unspecified, not intractable, without status migrainosus; M19.90 Unspecified osteoarthritis, unspecified site; K58.0 Irritable bowel syndrome with diarrhea; K57.30 Diverticulosis of large intestine without perforation or abscess without bleeding; T50.905A Adverse effect of unspecified drugs, medicaments and biological substances, initial encounter; R05 Cough; Z68.32 Body mass index [BMI] 32.0-32.9, adult; Z87.891 Personal history of nicotine dependence; Z88.1 Allergy status to other antibiotic agents; Z88.8 Allergy status to other drugs, medicaments and biological substances; Z82.61 Family history of arthritis; Z83.79 Family history of other diseases of the digestive system; Y92.9 Unspecified place or not applicable
CPT/HCPCS: 36415; 71046; 74177; 80048; 80053; 80202; 81001; 83605; 84484; 85025; 85610; 85730; 87040; 87086; 87324; 93005; 96361; 96365; 96367; 96375; 99285

== ENCOUNTER 2017-11-17 13:11 | Emergency (ER) | payer BC ==
[2017-11-17] MEDS ORDERED: SODIUM CHLORIDE 0.9% 1,000 ML IV STA (14:04)
[2017-11-17] MEDS ORDERED: MORPHINE SULFATE 4 MG/ML SYRINGE IV STA (14:04)
[2017-11-17] MEDS ORDERED: ONDANSETRON 4 MG/2 ML VIAL IVP STA (14:04)
--- NOTE | 2017-11-17 14:29 | ED ---
General Adult HPI - General Chief complaint: Abdominal Pain Stated complaint: abd pain, cancer pt Time Seen by Provider: 11/17/17 13:57 Source: patient, RN notes reviewed Mode of arrival: ambulatory Limitations: no limitations - History of Present Illness Initial comments: Patient's a 52-year-old female significant past medical history for breast cancer, chemotherapy, presents emergency room today with a chief complaint of increased abdominal pain with vomiting times one day. Patient states that after eating dinner last night she began experiencing cramping type abdominal pain in the middle of the abdomen greater on the left side. Patient states that she had episode of nausea vomiting and middle of night. Patient states the abdominal pain uncertain waves. States is very sharp. Denies any other complaints. Patient denies any recent fever, chills, shortness of breath, chest pain, back pain, numbness or tingling, dysuria or hematuria, constipation or diarrhea, headaches or visual changes, or any other complaints. - Related Data Home Medications Medication Instructions Recorded Confirmed [place] 1 tab PO DAILY 10/26/17 10/26/17 Cholecalciferol [Vitamin D3] 5,000 unit PO DAILY 10/26/17 10/26/17 Cranberry Fruit Extract [Cranberry] 500 mg PO DAILY 10/26/17 10/26/17 Fish Oil(Unknown) 1 cap PO DAILY 10/26/17 10/26/17 Glucosam/Darinel-Msm1/C/Tino/Bosw 1 tab PO DAILY 10/26/17 10/26/17 [Glucosamine-Chondroitin Tablet] L.acidoph,Paracasei, B.lactis 1 cap PO DAILY 10/26/17 10/26/17 [Probiotic] Vitamin B-6(Unknown) 1 tab PO DAILY 10/26/17 10/26/17 Previous Rx's Medication Instructions Recorded Acetaminophen Tab [Tylenol] 650 mg PO Q6HR PRN tab 10/30/17 Dicyclomine [Bentyl] 10 mg PO QID #30 cap 10/30/17 Docusate [Colace] 100 mg PO DAILY PRN #20 cap 10/30/17 HYDROcodone/APAP 5-325MG [[place] 1 each PO Q6HR PRN #15 tab 10/30/17 5-325] Prochlorperazine [Compazine] 10 mg PO BID #20 tab 10/30/17 Allergies Allergy/AdvReac Type Severity Reaction Status Date / Time levofloxacin [From Levaquin] Allergy Rash/Hives Verified 11/17/17 13:37 nitrofurantoin Allergy Rash/Hives Verified 11/17/17 13:37 [From Macrobid] sulfamethoxazole Allergy Rash/Hives Verified 11/17/17 13:37 [From Bactrim] trimethoprim [From Bactrim] Allergy Rash/Hives Verified 11/17/17 13:37 acetaminophen [From Midol] AdvReac Confusion Verified 11/17/17 13:37 aspirin [From Pamprin Max] AdvReac Confusion Verified 11/17/17 13:37 caffeine [From Pamprin Max] AdvReac Confusion Verified 11/17/17 13:37 dextromethorphan AdvReac Unknown Verified 11/17/17 13:37 [From NyQuil] diphenhydramine AdvReac Unknown Verified 11/17/17 13:37 [From Benadryl] doxylamine [From NyQuil] AdvReac Unknown Verified 11/17/17 13:37 pamabrom [From Midol] AdvReac Confusion Verified 11/17/17 13:37 pseudoephedrine [From NyQuil] AdvReac Unknown Verified 11/17/17 13:37 Review of Systems ROS Statement: Those systems with pertinent positive or pertinent negative responses have been documented in the HPI. ROS Other: All systems not noted in ROS Statement are negative. Past Medical History Past Medical History: Cancer Additional Past Medical History / Comment(s): IBS, ulcerative colitis, frequent migraines, had chronic cough in past that was d/t nay-was tx and resolved, left breast ca -had first chemo tc on sunday10/23/17 at [facility] in [place] History of Any Multi-Drug Resistant Organisms: None Reported Past Surgical History: Orthopedic Surgery, Tubal Ligation Additional Past Surgical History / Comment(s): tail bone fractured and removed in 9th grade, laproscopy, hysteroscopy, delgado breast bx and lymph node in neck bx Past Anesthesia/Blood Transfusion Reactions: Previous Problems w/ Anesthesia, Postoperative Nausea & Vomiting (PONV) Additional Past Anesthesia/Blood Transfusion Reaction / Comment(s): "Very hard time coming out of anesthesia" Past Psychological History: No Psychological Hx Reported Smoking Status: Never smoker Past Alcohol Use History: None Reported Past Drug Use History: None Reported - Past Family History Mother Family Medical History: Eye Disorder, Osteoarthritis (OA) Additional Family Medical History / Comment(s): IBS Father History Unknown: Yes General Exam - General Exam Comments Initial Comments: General: The patient is awake and alert, in no distress, and does not appear acutely ill. Eye: extra-ocular movements are intact. No nystagmus. There is normal conjunctiva bilaterally. No signs of icterus. Ears, nose, mouth and throat: There are moist mucous membranes and no oral lesions. Neck: The neck is supple, there is no tenderness or JVD. Cardiovascular: There is a regular rate and rhythm. No murmur, rub or gallop is appreciated. Respiratory: Lungs are clear to auscultation, respirations are non-labored, breath sounds are equal. No wheezes, stridor, rales, or rhonchi. Gastrointestinal: Abdomen soft on palpation. Patient does have mild tenderness to the left upper and lower quadrants. No rebound, guarding or CVA tenderness. Musculoskeletal: Normal ROM, no tenderness. Sensation intact. Neurological: A&O x 3. CN II-XII intact, There are no obvious motor or sensory deficits. Coordination appears grossly intact. Speech is normal. Skin: Skin is warm and dry and no rashes or lesions are noted. Psychiatric: Cooperative, appropriate mood & affect, normal judgment. Limitations: no limitations Course Vital Signs 11/17/17 11/17/17 13:35 14:45 Temperature 98.6 F Pulse Rate 86 76 Respiratory 14 18 Rate Blood Pressure 119/76 150/78 O2 Sat by Pulse 96 98 Oximetry Medical Decision Making - Medical Decision Making Case discussed in detail with attending physician Dr. Sharif. Patient reexamined at this time shows no signs of distress resting comfortably. Patient feeling much better at this time. Patient labs unremarkable. Patient denies any pain or complaint currently. Patient will be discharged home advised follow-up over the next 2 days return if symptoms increase worsen. She states understanding and is in agreement. - Lab Data Result diagrams: 11/17/17 14:41 11/17/17 14:41 Lab Results 11/17/17 11/17/17 11/17/17 Range/Units 14:41 14:41 14:41 WBC 7.3 (3.8-10.6) k/uL RBC 4.05 (3.80-5.40) m/uL Hgb 12.1 (11.4-16.0) gm/dL Hct 36.5 (34.0-46.0) % MCV 90.2 (80.0-100.0) fL MCH 29.9 (25.0-35.0) pg MCHC 33.2 (31.0-37.0) g/dL RDW 13.4 (11.5-15.5) % Plt Count 364 D (150-450) k/uL Neutrophils % 83 % Lymphocytes % 13 % Monocytes % 2 % Eosinophils % 1 % Basophils % 0 % Neutrophils # 6.1 (1.3-7.7) k/uL Lymphocytes # 0.9 L (1.0-4.8) k/uL Monocytes # 0.1 (0-1.0) k/uL Eosinophils # 0.1 (0-0.7) k/uL Basophils # 0.0 (0-0.2) k/uL Sodium 138 (137-145) mmol/L Potassium 4.3 (3.5-5.1) mmol/L Chloride 101 (98-107) mmol/L Carbon Dioxide 27 (22-30) mmol/L Anion Gap 10 mmol/L BUN 20 H (7-17) mg/dL Creatinine 0.70 (0.52-1.04) mg/dL Est GFR (CKD-EPI)AfAm >90 (>60 ml/min/1.73 sqM) Est GFR (CKD-EPI)NonAf >90 (>60 ml/min/1.73 sqM) Glucose 97 (74-99) mg/dL Calcium 9.5 (8.4-10.2) mg/dL Total Bilirubin 1.1 (0.2-1.3) mg/dL AST 20 (14-36) U/L ALT 34 (9-52) U/L Alkaline Phosphatase 52 (38-126) U/L Total Protein 6.8 (6.3-8.2) g/dL Albumin 4.2 (3.5-5.0) g/dL Amylase 96 (30-110) U/L Lipase 93 (23-300) U/L Urine Color Yellow Urine Appearance Clear (Clear) Urine pH 5.5 (5.0-8.0) Ur Specific [place] 1.020 (1.001-1.035) Urine Protein Negative (Negative) Urine Glucose (UA) Negative (Negative) Urine Ketones Negative (Negative) Urine Blood Negative (Negative) Urine Nitrite Negative (Negative) Urine Bilirubin Negative (Negative) Urine Urobilinogen <2.0 (<2.0) mg/dL Ur Leukocyte Esterase Negative (Negative) Disposition Clinical Impression: Abdominal pain Disposition: HOME SELF-CARE Condition: Good Instructions: Abdominal Pain (ED) Additional Instructions: Please use medication as discussed. Please follow-up with family doctor in the next 2 days of symptoms have not improved. Please return to emergency room if the symptoms increase or worsen or for any other concerns. Is patient prescribed a controlled substance at d/c from ED?: No Referrals: Trevon Melchor DO [Primary Care Provider] - 1-2 days Time of Disposition: 15:55
[2017-11-17 14:54] LABS: Appearance,Urine Clear (Clear); Bilirubin,Urine Negative (Negative); Blood,Urine Negative (Negative); Color,Urine Yellow; Glucose,Urine (UA) Negative (Negative); Ketones,Urine Negative (Negative); Leukocyte Esterase,Urine Negative (Negative); Nitrite,Urine Negative (Negative); PH, Urine 5.5 (5.0-8.0); Protein,Urine Negative (Negative); Urobilinogen,Urine <2.0 mg/dL (<2.0)
[2017-11-17 15:02] LABS: Basophils % (A) 0 %; Eosinophils # (A) 0.1 k/uL (0-0.7); Eosinophils % (A) 1 %; HCT 36.5 % (34.0-46.0); HGB 12.1 gm/dL (11.4-16.0); Lymphocytes # (A) 0.9 k/uL (1.0-4.8); Lymphocytes % (A) 13 %; MCH 29.9 pg (25.0-35.0); MCHC 33.2 g/dL (31.0-37.0); MCV 90.2 fL (80.0-100.0); Mean Platelet Volume 6.8; Monocytes # (A) 0.1 k/uL (0-1.0); Monocytes % (A) 2 %; Neutrophils # (A) 6.1 k/uL (1.3-7.7); Neutrophils % (A) 83 %; RBC 4.05 m/uL (3.80-5.40); RDW 13.4 % (11.5-15.5); WBC 7.3 k/uL (3.8-10.6)
[2017-11-17 15:03] LABS: ALT 34 U/L (9-52); AST 20 U/L (14-36); Albumin 4.2 g/dL (3.5-5.0); Alkaline Phosphatase 52 U/L (38-126); Amylase 96 U/L (30-110); Anion Gap 10 mmol/L; Blood Urea Nitrogen 20 mg/dL (7-17); Calcium 9.5 mg/dL (8.4-10.2); Carbon Dioxide 27 mmol/L (22-30); Chloride 101 mmol/L (98-107); Glucose 97 mg/dL (74-99); Lipase 93 U/L (23-300); Potassium 4.3 mmol/L (3.5-5.1); Sodium 138 mmol/L (137-145); Total Bilirubin 1.1 mg/dL (0.2-1.3); Total Protein 6.8 g/dL (6.3-8.2)
[2017-11-17 15:04] LABS: Platelet Count 364 k/uL (150-450)
--- NOTE | 2017-11-17 15:46 | XR ---
EXAMINATION TYPE: XR KUB DATE OF EXAM: 11/17/2017 CLINICAL DATA: 52-year-old female with abdominal pain, PH[facility] COMPARISON: None FINDINGS: Lung bases are clear. No evidence for free intraperitoneal air. No dilated small bowel or air-fluid levels. Scattered air is present within the colon. No significant stool burden. Belly button ring. No suspicious calcifications identified. Rotary dextroconvex curvature of the lumbar spine. IMPRESSION: No evidence of bowel obstruction or free intraperitoneal air.
[2017-11-17 16:03] VITALS: BP 138/70; PULSE 78; RESP 16; TEMP 98.4
== END 2017-11-17 16:02 | disposition home or self-care (01) ==
LOC: EC 13:11
DX: R10.9 Unspecified abdominal pain (principal); R11.2 Nausea with vomiting, unspecified; Z85.3 Personal history of malignant neoplasm of breast; Z88.1 Allergy status to other antibiotic agents; Z88.2 Allergy status to sulfonamides; Z88.6 Allergy status to analgesic agent; Z91.018 Allergy to other foods; Z88.8 Allergy status to other drugs, medicaments and biological substances
CPT/HCPCS: 36415; 80053; 82150; 83690; 85025; 81003; 74018; 99284; 96374; 96375; 96361; J2270; J2405

== ENCOUNTER → 2018-02-21 | Outpatient (CLI) | payer BC ==
--- NOTE | 2018-02-21 11:45 | CT ---
EXAMINATION TYPE: CT brain wo con DATE OF EXAM: 02/21/2018 COMPARISON: NONE HISTORY: History of breast cancer, patient on blood thinners, headache x [address] DLP: 1020.6 mGycm. Automated Exposure Control for Dose Reduction was Utilized. TECHNIQUE: CT scan of the head is performed without contrast. FINDINGS: There is no acute intracranial hemorrhage, mass effect, or midline shift identified. Few areas of hypoattenuation are seen within the centrum semiovale of the left frontal lobe. No suspicio us extra axial fluid collection is seen. The ventricles and sulci are within normal limits in size. The globes are intact and the visualized sinuses are clear. There is slight rightward nasal septal de viation. IMPRESSION: No acute intracranial hemorrhage, mass effect, or midline shift is seen. Few areas of hy poattenuation are seen within the centrum semiovale of the left frontal lobe that are nonspecific and could relate to sequela of microangiopathy although assessment for subcentimeter metastatic lesions could be further assessed with enhanced MRI.
== END | disposition home or self-care (01) ==
LOC: RADCTMAIN 11:15
PROVIDERS: ATTEND Internal Medicine Hematology & Oncology
DX: R90.89 Other abnormal findings on diagnostic imaging of central nervous system (principal); C50.412 Malignant neoplasm of upper-outer quadrant of left female breast
CPT/HCPCS: 70450

== ENCOUNTER → 2018-03-08 | Outpatient (CLI) | payer BC ==
--- NOTE | 2018-03-08 14:00 | USB ---
Reason for exam: clinical finding. History: Patient has history of breast cancer at age 52. Family history of breast cancer in maternal grandmother at age 30. Malignant US breast needle core LT of the left breast, August 28, 2017. Indicated problem(s): pain in both breasts. Palpable abnormality, skin thickening or retraction, and lump or thickening in the left breast. Physical Findings: Nurse Summary: palpable lump, thickening, pain (nurse dw). US Breast BILAT Right complete breast ultrasound includes all four quadrants, the retroareolar region and axilla. Finding demonstrates a 0.8 x 0.5 x 0.3cm oval, solid lipoma at 8 o'clock, benign. Left complete breast ultrasound includes all four quadrants, the retroareolar region and axilla. Finding demonstrates a 1.7 x 1.2 x 0.7cm oval, axilla node, a 3.9 x 4.2 x 1.3cm irregular, solid, hypoechoic lesion at 3 o'clock increased from prior measuring 2.2 x 2.4 x 2.9cm and an irregular, hypoechoic lesion at 2:30 extension from 3 o'clock, satellite mass versus extension. These results were verbally communicated with the patient and result sheet given to the patient on 03/08/18. ASSESSMENT: Known biopsy proven malignancy, BI-RAD 6 RECOMMENDATION: Surgical consultation and localization and excision of the left breast. (or mastectomy)
== END ==
LOC: RADUSWWP 10:07
PROVIDERS: ATTEND Internal Medicine Hematology & Oncology
DX: N63.10 Unspecified lump in the right breast, unspecified quadrant (principal); Z85.3 Personal history of malignant neoplasm of breast

== ENCOUNTER → 2018-03-13 | Outpatient (CLI) | payer BC ==
--- NOTE | 2018-03-13 15:46 | MR ---
EXAMINATION TYPE: MR brain wo/w con DATE OF EXAM: 03/13/2018 COMPARISON: CT dated 02/21/2018 HISTORY: Breast CA TECHNIQUE: Multiplanar, multisequence images of the brain and brainstem is performed without and with IV contras t, utilizing 8.5 mL intravenous Gadavist . FINDINGS: Diffusion weighted images demonstrate no evidence of a recent infarct or other diffusion ab normality. There is no extra-axial fluid collection. Juxtacortical hyperintensity and inversion rec overy T2-weighted sequences in the left frontal lobe measures only approximately 3 mm on axial image [address] finding, some vague periventricular hyperintensity on inversion recovery T2-we ighted sequences is noted. The ventricular system and cisternal spaces are normal in size and appeara nce. The brain volume is age appropriate. Midline structures demonstrate normal morphology. The craniocervical junction appears within normal limits. Post contrast images demonstrate no abnormal enhancement. The dural venous sinuses appear pa tent. The visualized sinuses are clear and the globes are intact. IMPRESSION: White matter demyelination change of questionable clinical significance, no abnormal enha ncement to suggest metastatic disease.
== END | disposition home or self-care (01) ==
LOC: RADMRIMAIN 12:41
PROVIDERS: ATTEND Internal Medicine Hematology & Oncology
DX: C50.919 Malignant neoplasm of unspecified site of unspecified female breast (principal); R51 Headache
CPT/HCPCS: 70553; A9585

== ENCOUNTER → 2018-05-18 | Outpatient (CLI) | payer BC ==
--- NOTE | 2018-05-20 07:42 | PE ---
EXAMINATION TYPE: PET CT fusion skull to thigh DATE OF EXAM: 05/18/2018 COMPARISON: CT abdomen and pelvis November 18, 2017. Complete bilateral breast ultrasound February. HISTORY: Breast cancer initial staging study. TECHNIQUE: Following the intravenous administration of 13.5 mCi of F-18 FDG, whole body images are p erformed from the skull base to the midthigh. Images are reviewed on the computer in the coronal, ax ial, and sagittal planes. Reconstructed rotating images are created on independent workstation and r eviewed on the computer. A noncontrast CT is performed in conjunction with the PET scan. SCAN: Initial Scan FINDINGS: SKULL BASE AND NECK: No suspicious hypermetabolic uptake is present. CHEST, MEDIASTINUM, AND HILAR REGION: There is interval surgery with new implant and surgical clips a long lateral margin of the implant including surgical clips in the axilla. There is moderate skin thi ckening inferiorly. Mild uptake anteriorly inferiorly is presumed postsurgical there is slight of mos t prominent skin thickening and subcutaneous edema. No suspicious areas of hypermetabolic uptake are seen in the thorax. ABDOMEN AND PELVIS: No areas of suspicious hypermetabolic uptake are present. Normal genitourinary ex cretion is evident. OSSEOUS STRUCTURES: No suspicious hypermetabolic uptake is seen. OTHER CT: No significant abnormalities seen. IMPRESSION: Interval left breast surgery. No residual or metastatic neoplasm identified.
== END ==
LOC: RADPETMAIN 13:02
PROVIDERS: ATTEND Internal Medicine Hematology & Oncology
DX: C50.412 Malignant neoplasm of upper-outer quadrant of left female breast (principal)
CPT/HCPCS: 78815; A9552

== ENCOUNTER → 2018-05-24 | Outpatient (CLI) | payer BC ==
--- NOTE | 2018-05-28 10:38 | USB ---
Reason for exam: clinical finding. History: Patient has history of breast cancer at age 52. Mastectomy of the left breast, March 2018. Malignant US breast needle core LT of the left breast, August 28, 2017. Chemotherapy, 2018. Implant in the left breast, 2008. Physical Findings: Nurse Summary: Patient complains of left lateral pain, swelling since mastectomy x 2 months (nurse carlee). US Breast LT Left complete breast ultrasound includes all four quadrants, the retroareolar region and axilla. Finding demonstrates no cystic or solid lesion seen. These results were verbally communicated with the patient and result sheet given to the patient on 05/24/18. ASSESSMENT: Probably benign, BI-RAD 3 (soft tissue) RECOMMENDATION: Clinical management of the left breast. Manage patient on a clinical basis. Back on schedule for right diagnostic mammogram July 2018.
== END | disposition home or self-care (01) ==
LOC: RADUSWWP 09:53
PROVIDERS: ATTEND Internal Medicine Hematology & Oncology
DX: Z08 Encounter for follow-up examination after completed treatment for malignant neoplasm (principal); Z85.3 Personal history of malignant neoplasm of breast; Z88.2 Allergy status to sulfonamides

== ENCOUNTER → 2018-08-01 | Outpatient (CLI) | payer BC ==
--- NOTE | 2018-08-01 16:57 | XR ---
EXAMINATION TYPE: XR chest 2V DATE OF EXAM: 08/01/2018 COMPARISON: 10/26/2017 HISTORY: Short of breath TECHNIQUE: Frontal and lateral views of the chest are obtained. FINDINGS: There is no heart failure nor confluent pneumonic infiltrate. There is a right central herb ous catheter with tip in the superior vena cava. There is no pleural effusion. Heart size is normal. Bony thorax is intact. IMPRESSION: No cardiopulmonary disease. Normal heart. No change.
== END | disposition home or self-care (01) ==
LOC: RADXRMAIN 16:37
PROVIDERS: ATTEND Registered Nurse Oncology
DX: C50.412 Malignant neoplasm of upper-outer quadrant of left female breast (principal); G89.3 Neoplasm related pain (acute) (chronic); R51 Headache; Z71.3 Dietary counseling and surveillance
CPT/HCPCS: 71046

== ENCOUNTER → 2018-08-02 | Outpatient (CLI) | payer BC ==
--- NOTE | 2018-08-02 07:27 | MR ---
MRI CERVICAL SPINE: CLINICAL HISTORY: Bilateral arm numbness and tingling per order. Headache with right-sided neck pain and pain or numbness into arms and hands for 2 weeks per patient. TECHNIQUE: Multiplanar, multisequence imaging of the cervical spine is performed without and with IV contrast, 9 cc of gadolinium was given intravenously. COMPARISON: None. FINDINGS: Exam is suboptimal due to tube motion artifact degradation. Sagittal images of the cervical spine show the craniocervical junction to appear within normal limits. The cervical and upper thora cic spinal cord is normal in course, caliber, and signal. There is mild disc space narrowing C5-C6 le darwin with posterior disc herniation on sagittal images. Vertebral alignment is anatomic. The vertebr al body and intravertebral disk heights otherwise are normal. The bone marrow signal intensity is wi thin normal limits. No suspicious enhancement. Axial images at C2-C3 level show left-sided uncovertebral facet degenerative change causing mild left -sided neural foraminal narrowing. Axial images at the C3-C4 and C4-C5 levels are felt within normal limits. Axial images at the C5-C6 level show broad-based left paracentral disc protrusion effacing anterolate ral thecal sac and causing mild to moderate left-sided neural foraminal narrowing. Axial images of the C6 -C7 level show left paracentral disc protrusion, effacing anterior thecal sac and causing mild left-sided neural foraminal narrowing. Axial images at the C7-T1 level are felt within normal limits. IMPRESSION: Some multilevel degenerative changes most prominent at C5-C6 level as detailed above.
== END | disposition home or self-care (01) ==
LOC: RADMRIMAIN 05:57
PROVIDERS: ATTEND Internal Medicine Hematology & Oncology
DX: M47.812 Spondylosis without myelopathy or radiculopathy, cervical region (principal)
CPT/HCPCS: 72156; A9585

== ENCOUNTER → 2018-08-03 | Outpatient (CLI) | payer BC ==
--- NOTE | 2018-08-03 15:41 | MR ---
EXAMINATION TYPE: MR thoracic spine wo/w con DATE OF EXAM: 08/03/2018 COMPARISON: PET/CT dated 05/18/2018 and MRI cervical spine dated 08/02/2018 HISTORY: Bilateral arm numbness/tingling. History of breast cancer CONTRAST: Standard multiplanar, multisequence MRI departmental protocol utilizing 9 mL intravenous Gadavist arlene olinium contrast. FINDINGS: There is a T1 and T2 hyperintense vertebral body hemangioma of L1. L1 is somewhat suboptima lly evaluated secondary to artifact at the inferior margin of the [id number], as is the lower cerv ical spine. Within the thoracic spine there is a T2 hyperintense lesion at T5 that is only minimally T1 hyperintense, predominantly isointense but does demonstrate avid enhancement measuring 1.1 cm. Sim ilar lesion is also seen at T2 on postcontrast image 8 measuring 0.9 cm. This lesion is subtly T1 hyp ointense and is concerning for metastasis. Mild multilevel degenerative disc disease is seen of the thoracic spine. A small left paracentral dis c herniation is seen at T2-T3 without spinal canal stenosis or neural foraminal narrowing. Broad-base d disc bulge is seen at T7-T8, minimally at T8-T9, T9-T10 and T10-T11 without spinal canal stenosis n or neural foraminal narrowing. IMPRESSION: 1. Enhancing thoracic spine lesions of T2 and T5 measuring 0.9 and 1.1 cm respectively. These appear atypical for hemangiomas and are concerning for metastasis although there is no markedly decreased T1 intensity to confirm metastasis and correlation with bone scan is recommended for confirmation. 2. Small left paracentral disc herniation at T2-T3 without spinal canal stenosis or neural foraminal narrowing in addition to mild multilevel degenerative disc disease of the thoracic spine.
== END | disposition home or self-care (01) ==
LOC: RADMRIMAIN 13:14
PROVIDERS: ATTEND Internal Medicine Hematology & Oncology
DX: M51.24 Other intervertebral disc displacement, thoracic region (principal); M51.34 Other intervertebral disc degeneration, thoracic region
CPT/HCPCS: 72157; A9585

== ENCOUNTER 2018-08-05 11:34 | Emergency (ER) | payer BC ==
[2018-08-05 11:49] VITALS: BP 139/92; RESP 18; TEMP 98.5
[2018-08-05 13:05] LABS: Anion Gap 8 mmol/L; Blood Urea Nitrogen 13 mg/dL (7-17); Carbon Dioxide 28 mmol/L (22-30); Chloride 106 mmol/L (98-107); Glucose 110 mg/dL (74-99); Potassium 3.9 mmol/L (3.5-5.1); Sodium 142 mmol/L (137-145)
[2018-08-05 13:12] LABS: Basophils % (A) 1 %; Eosinophils # (A) 0.1 k/uL (0-0.7); Eosinophils % (A) 2 %; HCT 38.2 % (34.0-46.0); HGB 12.9 gm/dL (11.4-16.0); Lymphocytes # (A) 0.6 k/uL (1.0-4.8); Lymphocytes % (A) 13 %; MCH 29.9 pg (25.0-35.0); MCHC 33.7 g/dL (31.0-37.0); MCV 88.7 fL (80.0-100.0); Mean Platelet Volume 7.3; Monocytes # (A) 0.3 k/uL (0-1.0); Monocytes % (A) 6 %; Neutrophils # (A) 3.8 k/uL (1.3-7.7); Neutrophils % (A) 76 %; Platelet Count 272 k/uL (150-450); RDW 13.1 % (11.5-15.5)
--- NOTE | 2018-08-05 13:23 | ED ---
General Adult HPI - General Chief complaint: Extremity Problem,Nontraumatic Stated complaint: bilat hand/arm numbness Time Seen by Provider: 08/05/18 12:06 Source: patient, RN notes reviewed, old records reviewed Mode of arrival: ambulatory Limitations: no limitations - History of Present Illness Initial comments: 53 female presenting with bilateral hand numbness and paresthesia. This is been an ongoing symptom for many months. It has worsened over the past 3 weeks. Patient is currently being treated for breast cancer. She denies any significant neck pain. Denies any injury. She states the symptoms normally resolve with repositioning. However over the past several weeks it has been difficult to relieve her symptoms. She's been taking her, and [place]. Complains predominantly of symptoms in the first 3 digits bilaterally. - Related Data Home Medications Medication Instructions Recorded Confirmed Cholecalciferol [Vitamin D3 (25 5,000 unit PO BID 10/26/17 08/05/18 Mcg = 1000 Iu)] L.acidoph,Paracasei, B.lactis 1 cap PO DAILY 10/26/17 08/05/18 [Probiotic] Omeprazole [PriLOSEC] 20 mg PO DAILY@1430 11/18/17 08/05/18 Apixaban [Eliquis] 5 mg PO BID 08/05/18 08/05/18 Cranberry Fruit Extract [Cranberry] 500 mg PO DAILY 08/05/18 08/05/18 Dicyclomine [Bentyl] 10 mg PO BID 08/05/18 08/05/18 HYDROcodone/APAP 5-325MG [[place] 1 - 2 tab PO Q4HR PRN 08/05/18 08/05/18 5-325] Letrozole 2.5 mg PO MOTUWETHFR 08/05/18 08/05/18 Multivitamins, Thera [Multivitamin 1 tab PO DAILY 08/05/18 08/05/18 (formulary)] [place]-3 Fatty Acids [[place]-3] 1,000 mg PO DAILY 08/05/18 08/05/18 Pregabalin [Lyrica] 150 mg PO TID 08/05/18 08/05/18 Pyridoxine HCl (Vitamin B6) 100 mg PO BID 08/05/18 08/05/18 [Vitamin B-6] Ubidecarenone [Co Q-10] 100 mg PO DAILY 08/05/18 08/05/18 Previous Rx's Medication Instructions Recorded Furosemide [Lasix] 20 mg PO DAILY #5 tab 08/05/18 Allergies Allergy/AdvReac Type Severity Reaction Status Date / Time levofloxacin [From Levaquin] Allergy Rash/Hives Verified 08/05/18 12:02 nitrofurantoin Allergy Rash/Hives Verified 08/05/18 12:02 [From Macrobid] sulfamethoxazole Allergy Rash/Hives Verified 08/05/18 12:02 [From Bactrim] trimethoprim [From Bactrim] Allergy Rash/Hives Verified 08/05/18 12:02 acetaminophen [From Midol] AdvReac Confusion Verified 08/05/18 12:02 aspirin [From Pamprin Max] AdvReac Confusion Verified 08/05/18 12:02 caffeine [From Pamprin Max] AdvReac Confusion Verified 08/05/18 12:02 dextromethorphan AdvReac Unknown Verified 08/05/18 12:02 [From NyQuil] diphenhydramine AdvReac Unknown Verified 08/05/18 12:02 [From Benadryl] doxylamine [From NyQuil] AdvReac Unknown Verified 08/05/18 12:02 pamabrom [From Midol] AdvReac Confusion Verified 08/05/18 12:02 pseudoephedrine [From NyQuil] AdvReac Unknown Verified 08/05/18 12:02 Review of Systems ROS Statement: Those systems with pertinent positive or pertinent negative responses have been documented in the HPI. ROS Other: All systems not noted in ROS Statement are negative. Past Medical History Past Medical History: Cancer Additional Past Medical History / Comment(s): IBS, ulcerative colitis, frequent migraines, left breast ca -had first chemo tc on sunday10/23/17 at [facility] in [place]. last chemo was July 16 2018 History of Any Multi-Drug Resistant Organisms: None Reported Past Surgical History: Orthopedic Surgery, Tubal Ligation Additional Past Surgical History / Comment(s): tail bone fractured and removed in 9th grade, laproscopy, hysteroscopy, delgado breast bx and lymph node in neck bx Past Anesthesia/Blood Transfusion Reactions: Previous Problems w/ Anesthesia, Postoperative Nausea & Vomiting (PONV) Additional Past Anesthesia/Blood Transfusion Reaction / Comment(s): "Very hard time coming out of anesthesia" Past Psychological History: No Psychological Hx Reported Smoking Status: Never smoker Past Alcohol Use History: None Reported Past Drug Use History: None Reported - Past Family History Mother Family Medical History: Eye Disorder, Osteoarthritis (OA) Additional Family Medical History / Comment(s): IBS Father History Unknown: Yes General Exam Limitations: no limitations General appearance: alert, in no apparent distress Head exam: Present: atraumatic, normocephalic Eye exam: Present: normal appearance, PERRL ENT exam: Present: normal exam Neck exam: Present: normal inspection, full ROM. Absent: tenderness, meningismus Respiratory exam: Present: normal lung sounds bilaterally. Absent: respiratory distress Cardiovascular Exam: Present: regular rate, normal rhythm GI/Abdominal exam: Present: soft. Absent: distended, tenderness Extremities exam: Present: other (Very minimal bilateral soft tissue swelling in the hands, normal capillary refill bilaterally, 2+ radial pulses bilaterally, normal vascular radiologist strength bilaterally.) Neurological exam: Present: alert, oriented X3, CN II-XII intact Psychiatric exam: Present: normal affect, normal mood Skin exam: Present: warm, dry, intact Course Vital Signs 08/05/18 11:42 Temperature 98.5 F Pulse Rate 82 Respiratory 18 Rate Blood Pressure 139/92 O2 Sat by Pulse 97 Oximetry Medical Decision Making - Medical Decision Making Electrolytes are obtained, these are normal, normal CBC. Patient will be given outpatient orthopedics and neurology follow-up. Suspect peripheral neuropathy first carpal tunnel. MRI was performed within the last week of both the cervical and thoracic spine. There is several lesions noted on thoracic spine MRI, patient's oncologist will follow-up on these. Cervical spine showed multilevel degenerative changes. She will be given outpatient neurology and orthopedic follow-up. She will continue to follow with her oncologist. She will return with worsening or changing symptoms. Patient will continue Lyrica and [place]. She'll also be prescribed several days of 20 mg Lasix improve minimal soft tissue edema. - Lab Data Result diagrams: 08/05/18 12:40 08/05/18 12:40 Lab Results 08/05/18 08/05/18 Range/Units 12:40 12:40 WBC 5.0 (3.8-10.6) k/uL RBC 4.30 (3.80-5.40) m/uL Hgb 12.9 (11.4-16.0) gm/dL Hct 38.2 (34.0-46.0) % MCV 88.7 (80.0-100.0) fL MCH 29.9 (25.0-35.0) pg MCHC 33.7 (31.0-37.0) g/dL RDW 13.1 (11.5-15.5) % Plt Count 272 (150-450) k/uL Neutrophils % 76 % Lymphocytes % 13 % Monocytes % 6 % Eosinophils % 2 % Basophils % 1 % Neutrophils # 3.8 (1.3-7.7) k/uL Lymphocytes # 0.6 L (1.0-4.8) k/uL Monocytes # 0.3 (0-1.0) k/uL Eosinophils # 0.1 (0-0.7) k/uL Basophils # 0.0 (0-0.2) k/uL Sodium 142 (137-145) mmol/L Potassium 3.9 (3.5-5.1) mmol/L Chloride 106 (98-107) mmol/L Carbon Dioxide 28 (22-30) mmol/L Anion Gap 8 mmol/L BUN 13 (7-17) mg/dL Creatinine 0.69 (0.52-1.04) mg/dL Est GFR (CKD-EPI)AfAm >90 (>60 ml/min/1.73 sqM) Est GFR (CKD-EPI)NonAf >90 (>60 ml/min/1.73 sqM) Glucose 110 H (74-99) mg/dL Calcium 10.0 (8.4-10.2) mg/dL Magnesium 2.0 (1.6-2.3) mg/dL Disposition Clinical Impression: Peripheral neuropathy, Carpal tunnel syndrome Disposition: HOME SELF-CARE Condition: Fair Instructions (If sedation given, give patient instructions): Peripheral Neuropathy (ED) Prescriptions: Furosemide [Lasix] 20 mg PO DAILY #5 tab Is patient prescribed a controlled substance at d/c from ED?: No Referrals: Trevon Melchor DO [Primary Care Provider] - 1-2 days Milton Vergara MD [Medical Doctor] - 1-2 days Rochelle Hines MD [STAFF PHYSICIAN] - 1-2 days Time of Disposition: 13:22
[2018-08-05 14:02] VITALS: PULSE 79
== END 2018-08-05 13:45 | disposition home or self-care (01) ==
LOC: EC 11:34
DX: G62.9 Polyneuropathy, unspecified (principal); G56.03 Carpal tunnel syndrome, bilateral upper limbs; C50.919 Malignant neoplasm of unspecified site of unspecified female breast; Z79.01 Long term (current) use of anticoagulants; Z79.899 Other long term (current) drug therapy; Z88.1 Allergy status to other antibiotic agents; Z88.2 Allergy status to sulfonamides; Z88.6 Allergy status to analgesic agent; Z91.018 Allergy to other foods; Z88.8 Allergy status to other drugs, medicaments and biological substances
CPT/HCPCS: 36415; 80048; 83735; 85025; 99284

== ENCOUNTER → 2018-08-14 | Outpatient (CLI) | payer BC ==
--- NOTE | 2018-08-14 15:19 | NM ---
EXAMINATION TYPE: NM bone scan whole body DATE OF EXAM: 08/14/2018 COMPARISON: MR thoracic spine 08/03/2018 HISTORY: Breast cancer, abnormal MRI Delayed whole-body scanning was performed following the injection of 21.7 mCi Tc 99m MDP. Images acq uired 4 hours post injection. FINDINGS: The lesion seen at T2 and T5 on MRI show no associated increased radio pharmaceutical uptake on bone scan. Soft tissue uptake is normal. There is mild spinal curvature noted in the lumbar spine. Uptake in the feet, ankles, knees, wrists, shoulders is likely degenerative. IMPRESSION: Findings felt likely to be benign and represent hemangiomas rather than metastasis within the T2 and T5 vertebral bodies. Metastatic disease is not evident..
== END | disposition home or self-care (01) ==
LOC: RADNMMAIN 09:53
PROVIDERS: ATTEND Radiology Radiation Oncology
DX: C50.412 Malignant neoplasm of upper-outer quadrant of left female breast (principal); Z17.0 Estrogen receptor positive status [ER+]
CPT/HCPCS: 78306; A9503

== ENCOUNTER → 2018-11-30 | Outpatient (CLI) | payer BC ==
--- NOTE | 2018-12-02 07:11 | PE ---
EXAMINATION TYPE: PET CT fusion skull to thigh DATE OF EXAM: 11/30/2018 COMPARISON: Prior PET/CT May 18, 2018 HISTORY: Left-sided breast cancer had surgery April 09, 2018 and completed radiation treatment in A pril 2019, completed chemotherapy November 192018. TECHNIQUE: Following the intravenous administration of 11.06 mCi of F-18 FDG, whole body images are performed from the skull base to the midthigh. Images are reviewed on the computer in the coronal, a xial, and sagittal planes. Reconstructed rotating images are created on independent workstation and reviewed on the computer. A noncontrast CT is performed in conjunction with the PET scan. SCAN: Subsequent Scan FINDINGS: SKULL BASE AND NECK: No definitive new areas of suspicious hypermetabolic uptake. CHEST, MEDIASTINUM, AND HILAR REGION: Redemonstration of left breast implant is subglandular in locat ion. There is persistent skin thickening and subcutaneous edema most prominent inferiorly with mild h ypermetabolic uptake. This is presumed posttreatment change but inflammatory carcinoma cannot be enti rely excluded. Correlate clinically with original pathology. Surgical changes along lateral posterior margin of the implant with surgical clips into the left axillary artery present. No areas of new barrie picious hypermetabolic uptake. ABDOMEN AND PELVIS: No new areas of suspicious hypermetabolic uptake. OSSEOUS STRUCTURES: No new areas of suspicious hypermetabolic uptake. OTHER CT: Possible medial right breast clip or dystrophic calcification axial image 95 redemonstrated . New right internal jugular Mediport catheter terminating at cavoatrial junction. IMPRESSION: Attention to left breast as detailed above strongly favoring ongoing posttreatment change , correlate clinically with original pathology. No new areas of suspicious hypermetabolic uptake to s uggest interval developing metastatic malignancy.
== END | disposition home or self-care (01) ==
LOC: RADPETMAIN 07:31
PROVIDERS: ATTEND Internal Medicine Hematology & Oncology
DX: C50.412 Malignant neoplasm of upper-outer quadrant of left female breast (principal); Z98.890 Other specified postprocedural states
CPT/HCPCS: 78815; A9552

== ENCOUNTER → 2019-07-09 | Outpatient (CLI) | payer BC ==
[2019-07-09 09:12] LABS: African American GFR (CKD) >90 (>60 ml/min/1.73 sqM); Anion Gap 5 mmol/L; Blood Urea Nitrogen 14 mg/dL (7-17); Carbon Dioxide 25 mmol/L (22-30); Chloride 108 mmol/L (98-107); Non-African American GFR(CKD) >90 (>60 ml/min/1.73 sqM); Potassium 4.4 mmol/L (3.5-5.1); Sodium 138 mmol/L (137-145)
[2019-07-09 09:16] LABS: HCT 35.1 % (34.0-46.0); MCH 30.8 pg (25.0-35.0); MCHC 34.1 g/dL (31.0-37.0); MCV 90.5 fL (80.0-100.0); Mean Platelet Volume 8.4; Platelet Count 222 k/uL (150-450); RBC 3.88 m/uL (3.80-5.40); RDW 12.7 % (11.5-15.5); WBC 4.4 k/uL (3.8-10.6)
== END | disposition home or self-care (01) ==
LOC: LABPAT 08:41
PROVIDERS: ATTEND Internal Medicine Interventional Cardiology
DX: Z01.818 Encounter for other preprocedural examination (principal); R94.39 Abnormal result of other cardiovascular function study
CPT/HCPCS: 36415; 80051; 82565; 84520; 85027

== ENCOUNTER → 2019-07-14 | Day surgery (SDC) | payer BC ==
[2019-07-09 13:14] VITALS: BMI 39.2
[~2019-07-14] MED LIST: ALPRAZolam 0.25 MG TAB PO PRN; ALPRAZolam 0.5 MG TAB PO PRN; ASPIRIN 325 MG TAB PO STA; ATORVASTATIN 80 MG TAB PO STA; CARVEDILOL 12.5 MG TAB PO SCH; CHOLECALCIFEROL 1,000 UNIT TAB PO SCH; CLINDAMYCIN TOPICAL SCH; CRANBERRY FRUIT EXTRACT 4200 MG PO SCH; CYANOCOBALAMIN 5000 MCG PO SCH; DIGOXIN 125 MCG TAB PO SCH; HEPARIN SODIUM 1,000 UN/ML (10ML VL) IV ONE; HEPARIN SODIUM 1,000 UN/ML (10ML VL) ONE; IOPAMIDOL-370 125ML BTL INJ ONE; KRILL OIL 500 MG PO SCH; LIDOCAINE 1% INJ 10MG/ML (20 ML MDV) ONE; LIDOCAINE 1% INJ 10MG/ML (20 ML MDV) SQ ONE; LOPERAMIDE HCL 2 MG PO PRN; MELATONIN 20 MG PO SCH; MIDAZOLAM 2 MG/2 ML VIAL IV ONE; MULTIVITAMINS, THERA 1 EACH TAB PO SCH; NITROGLYCERIN SL TABS 0.4 MG TAB SUBLINGUAL PRN; NON FORMULARY DRUG (L.Acidoph,Paracasei, B.Lactis [Probiotic] 1 CAP) PO SCH; NON FORMULARY DRUG (Omeprazole 20 MG) PO SCH; NON FORMULARY DRUG (Ubidecarenone [Co Q-10] 100 MG) PO SCH; NON FORMULARY DRUG (Vitamin C/Biotin [Hair, Skin And Nails] 1 TAB) PO SCH; PREGABALIN 150 MG PO SCH; PYRIDOXINE HCL 100 MG PO SCH; RX INFO: IV CONTRAST WAS GIVEN 1 EACH MISC MISCELLANE PRN; SACUBITRIL/VALSARTAN 24 MG-26 MG TABLET PO SCH; SODIUM CHLORIDE 0.9% 1,000 ML IV SCH; SODIUM CHLORIDE 0.9% 1,000 ML in EMPTY BAG 1 BAG IV ONE; SPIRONOLACTONE 25 MG TAB PO SCH; TAMOXIFEN 10 MG TAB PO SCH; TURMERIC ROOT EXTRACT PO SCH; VERAPAMIL 2.5 MG/ML 2 ML AMP ONE; VERAPAMIL SYRINGE (5 MG/10 ML) INTRAARTER ONE; fentaNYL (PF) 50 MCG/ML 2 ML AMP IV ONE; fentaNYL (PF) 50 MCG/ML 2 ML AMP ONE
[2019-07-14 07:12] VITALS: RESP 16; TEMP 98
--- NOTE | 2019-07-14 09:23 | CC ---
CARDIAC CATHETERIZATION REPORT Mrs. Berumen is a 54-year-old female with history of hypertension, history of breast CA, who has chemotherapy-induced cardiomyopathy who has been complaining of progressive symptoms of chest discomfort and dyspnea on exertion. She underwent a myocardial perfusion imaging that revealed an anterior wall ischemia. In view of that, recommendation made regarding cardiac catheterization. The procedures, risks, and complication were discussed with the patient who is in full understanding and agreement. PROCEDURE: Patient was brought to cleaning laborer in the fasting semi-sedated state after receiving fentanyl and Benadryl and achieving moderate conscious sedated state. Using Xylocaine anesthesia and Seldinger technique, a 6-Uzbek sheath was introduced in the right radial artery. Selective right and left coronary angiography performed using 5-Uzbek 3.5 bend right and left Jasmin catheter. Multiple views of the coronary artery including hemiaxial views were obtained. Following that, a 5-Uzbek tight pigtail catheter induced in the left ventricle and a 30-degree PATEL view of the left ventricle was obtained. Following that, catheter and sheath were removed. Hemostasis was obtained with deployment of a TR band. There was no immediate complication. Patient is returned to her room in stable condition. Of note, the patient received 5000 units of intravenous heparin as well as intra-arterial verapamil. FINDINGS: LEFT MAIN: This is a large-sized vessel, bifurcating into left circumflex, left anterior descending artery. Left main coronary artery has no evidence of high-grade stenosis. LEFT ANTERIOR DESCENDING ARTERY: This is a large-sized vessel, tapers down in distal third, giving rise to a [id number] sized diagonal branch in mid segment and a large diagonal branch proximally. The left anterior descending artery as well as branches have no evidence of obstructive coronary artery disease. LEFT CIRCUMFLEX: This is a codominant vessel, giving rise to 2 diagonal branches and distally giving rise to a large PDA. The left circumflex as well as branches have no evidence of obstructive chronic artery coronary disease. RIGHT CORONARY ARTERY: This is a codominant vessel, moderate in caliber, giving rise to a right PDA distally. The right coronary artery as well as branches have no evidence of obstructive coronary artery disease. LEFT VENTRICULOGRAM: Left ventriculogram is performed in 30-degree PATEL view and revealed a global hypokinesis with ejection fraction estimated at 40%-45%. There was no significant mitral regurgitation. HEMODYNAMICS: There was no gradient across the aortic valve. The left ventricular end- diastolic pressure was 10-12 mmHg. CONCLUSION: 1. Normal coronary arteries. 2. Moderately impaired left ventricular systolic function. RECOMMENDATION: The finding are consistent with nonischemic cardiomyopathy. At this time, I will maximize her medical therapy and depending on her progress, further recommendation will be made. Duration of procedure is 15 minutes. AUSTIN / JUAN: [id number] /
[2019-07-14 12:41] VITALS: BP 137/69; PULSE 72
--- NOTE | 2019-07-14 21:52 | LTR ---
DATE OF SERVICE 07/14/2019 RE: Rafael Berumen Dear Dr. Melchor; I had the pleasure to perform cardiac catheterization on Mrs. Berumen at [facility] on July 14, 2019 and a full copy of the procedure note will be forwarded to you. In brief, she was found to have no evidence of obstructive disease with moderately impaired left ventricular systolic function consistent with her nonischemic cardiomyopathy. At this time, I will continue medical therapy with the present treatment optimizing her regimen and depending on her progress, further recommendation will be made. Thank you again for allowing me to participate in the patient's personal care. Please feel free to call for any questions. Sincerely your, MD AUSTIN Mathew / JUAN: [id number] /
== END | disposition home or self-care (01) ==
LOC: CATHCVL 06:26
PROVIDERS: ATTEND Internal Medicine Interventional Cardiology
DX: I42.8 Other cardiomyopathies (principal); I10 Essential (primary) hypertension; E66.9 Obesity, unspecified; Z85.3 Personal history of malignant neoplasm of breast; Z79.01 Long term (current) use of anticoagulants; Z79.899 Other long term (current) drug therapy; Z88.6 Allergy status to analgesic agent; Z88.1 Allergy status to other antibiotic agents; Z88.8 Allergy status to other drugs, medicaments and biological substances; Z87.891 Personal history of nicotine dependence; Z68.39 Body mass index [BMI] 39.0-39.9, adult; Z90.10 Acquired absence of unspecified breast and nipple
CPT/HCPCS: 93458; J2250; J2001; J3010; J1644; Q9967

== ENCOUNTER → 2019-11-19 | Outpatient (CLI) | payer BC ==
--- NOTE | 2019-11-19 13:07 | US ---
EXAMINATION TYPE: US venous doppler duplex LE LT DATE OF EXAM: 11/19/2019 12:49 PM COMPARISON: NONE CLINICAL HISTORY: M79.605 pain in left lower extremity. SIDE PERFORMED: Left TECHNIQUE: The lower extremity deep venous system is examined utilizing real time linear array sonog carlo with graded compression, doppler sonography and color-flow sonography. VESSELS IMAGED: External Iliac Vein (EIV) Common Femoral Vein Deep Femoral Vein Greater Saphenous Vein * Femoral Vein Popliteal Vein Small Saphenous Vein * Proximal Calf Veins (* superficial vessels) Left Leg: Negative for DVT IMPRESSION: No evidence for DVT at this time.
--- NOTE | 2019-11-19 13:13 | US ---
EXAMINATION TYPE: US transvaginal DATE OF EXAM: 11/19/2019 COMPARISON: NONE CLINICAL HISTORY: R10.2 pelvic and perineal pain. Patient on tamoxifin 1 /2, hx of breast ca, patien t states she has been having what feels like menstrual cramps TECHNIQUE: Transvaginal (TV). Date of LMP: 2016 EXAM MEASUREMENTS: Uterus: 8.0 x 3.1 cm Endometrial Stripe: 0.4 cm Right Ovary: Obscured by overlying bowel gas Left Ovary: Obscured by overlying bowel gas Extensive overlying peristalsing bowel. 1. Uterus: Anteverted wnl, as seen, somewhat limited views due to overlying bowel gas 2. Endometrium: wnl 3. Right Ovary: Obscured by overlying bowel gas 4. Left Ovary: Obscured by overlying bowel gas 5. Bilateral Adnexa: wnl 6. Posterior cul-de-sac: wnl IMPRESSION: No distinct abnormality is appreciated.
== END | disposition home or self-care (01) ==
LOC: RADUSWWP 12:09
PROVIDERS: ATTEND Family Medicine
DX: M79.605 Pain in left leg (principal); R10.2 Pelvic and perineal pain
CPT/HCPCS: 76830

== ENCOUNTER 2020-03-08 15:47 | Emergency (ER) | payer BC ==
[2020-03-08] MEDS ORDERED: DIAZEPAM 5 MG/ML 2 ML INJ IVP STA (16:37)
[2020-03-08] MEDS ORDERED: KETOROLAC 15 MG/ML 1 ML VIAL IVP STA (16:38)
--- NOTE | 2020-03-08 17:08 | ED ---
Back Pain HPI - General Chief Complaint: Back Pain/Injury Stated Complaint: Upper Back Pain Time Seen by Provider: 03/08/20 16:14 Source: patient, family Limitations: no limitations - History of Present Illness Initial Comments: Patient is a 55-year-old female presenting to emergency Department with complaints of right upper back pain that started suddenly today. Patient states she was cleaning her stove with her right hand and scrubbing when she all of a sudden had a very sharp pain in her right upper back. Patient states is radiating to her right shoulder. Patient states she's never headache like this before, she denies any previous injuries or surgeries to her right shoulder. She states that it hurts to take in a deep breath secondary to that right upper back pain. She denies any chest pain, fever, chills. She does have recent history of double mastectomy in December. She has been recovering well. She does have history of blood clots, she has been on eliquis for 2-3 years now. She denies any nausea, vomiting, abdominal pain. She denies any other injuries or falls. She has no further complaints at this time. - Related Data Home Medications Medication Instructions Recorded Confirmed Cholecalciferol [Vitamin D3 (25 2,000 unit PO BID 10/26/17 07/14/19 Mcg = 1000 Iu)] L.acidoph,Paracasei, B.lactis 1 cap PO DAILY 10/26/17 07/14/19 [Probiotic] Omeprazole [PriLOSEC] 20 mg PO PC-LUNCH 11/18/17 07/14/19 Apixaban [Eliquis] 5 mg PO BID 08/05/18 07/14/19 Cranberry Fruit Extract [Cranberry] 4,200 mg PO DAILY 08/05/18 07/14/19 Pregabalin [Lyrica] 150 mg PO TID 08/05/18 07/14/19 Pyridoxine HCl (Vitamin B6) 100 mg PO DAILY 08/05/18 07/14/19 [Vitamin B-6] Ubidecarenone [Co Q-10] 100 mg PO DAILY 08/05/18 07/14/19 Acetaminophen [Tylenol Extra 500 mg PO DIRECTED PRN 07/09/19 07/14/19 Strength] Clindamycin Gel [Clindamycin 1 applic TOPICAL BID 07/09/19 07/14/19 Phosphate 1% Gel] Cyanocobalamin (Vitamin B-12) 5,000 mcg PO DAILY 07/09/19 07/14/19 [Vitamin B-12] Digoxin [Lanoxin] 125 mcg PO DAILY 07/09/19 07/14/19 Krill Oil 500 mg PO DAILY 07/09/19 07/14/19 Loperamide HCl [Imodium A-D] 2 mg PO DIRECTED PRN 07/09/19 07/14/19 Melatonin 20 mg PO HS 07/09/19 07/14/19 Multivitamins, Thera [Multivitamin 1 tab PO DAILY 07/09/19 07/14/19 (formulary)] Sacubitril/Valsartan [Entresto 24 1 each PO BID 07/09/19 07/14/19 mg-26 mg Tablet] Spironolactone 12.5 mg PO DAILY 07/09/19 07/14/19 Tamoxifen [Nolvadex] 20 mg PO DAILY 07/09/19 07/14/19 Turmeric Root Extract [Turmeric] 1,400 mg PO DAILY 07/09/19 07/14/19 Vitamin C/Biotin [Hair, Skin and 1 tab PO DAILY 07/09/19 07/14/19 Nails] carvediloL [Coreg*] 12.5 mg PO BID 07/09/19 07/14/19 Previous Rx's Medication Instructions Recorded Cyclobenzaprine [Flexeril] 5 mg PO TID PRN #10 tablet 03/08/20 Allergies Allergy/AdvReac Type Severity Reaction Status Date / Time levofloxacin [From Levaquin] Allergy Rash/Hives Verified 03/08/20 16:03 nitrofurantoin Allergy Rash/Hives Verified 03/08/20 16:03 [From Macrobid] sulfamethoxazole Allergy Rash/Hives Verified 03/08/20 16:03 [From Bactrim] trimethoprim [From Bactrim] Allergy Rash/Hives Verified 03/08/20 16:03 adhesive tape AdvReac Unknown sewell skin Verified 03/08/20 16:03 dextromethorphan AdvReac Very Sleepy Verified 03/08/20 16:03 [From NyQuil] diphenhydramine AdvReac states Verified 03/08/20 16:03 [From Benadryl] "goofy, drunk" doxylamine [From NyQuil] AdvReac very sleepy Verified 03/08/20 16:03 pamabrom [From Midol] AdvReac Confusion Verified 03/08/20 16:03 pseudoephedrine [From NyQuil] AdvReac very sleepy Verified 03/08/20 16:03 empirin aspirin Allergy Unknown Rash/Hives Uncoded 03/08/20 16:03 Review of Systems ROS Statement: Those systems with pertinent positive or pertinent negative responses have been documented in the HPI. ROS Other: All systems not noted in ROS Statement are negative. Past Medical History Past Medical History: Cancer Additional Past Medical History / Comment(s): IBS, ulcerative colitis, frequent migraines, left breast ca -had first chemo tc on sunday10/23/17 at cancer [facility] in [place]. last chemo was July 16 2018 History of Any Multi-Drug Resistant Organisms: None Reported Past Surgical History: Orthopedic Surgery, Tubal Ligation Additional Past Surgical History / Comment(s): tail bone fractured and removed in 9th grade, laproscopy, hysteroscopy, delgado breast bx and lymph node in neck bx, delgado mastectomy with flap reconstruction Past Anesthesia/Blood Transfusion Reactions: Previous Problems w/ Anesthesia, Postoperative Nausea & Vomiting (PONV) Additional Past Anesthesia/Blood Transfusion Reaction / Comment(s): "Very hard time coming out of anesthesia" Past Psychological History: No Psychological Hx Reported Past Alcohol Use History: None Reported Past Drug Use History: None Reported - Past Family History Mother Family Medical History: Eye Disorder, Osteoarthritis (OA) Additional Family Medical History / Comment(s): IBS Father History Unknown: Yes General Exam - General Exam Comments Initial Comments: GENERAL: Patient is well-developed and well-nourished. Patient is nontoxic and in mild distress. HEAD: Atraumatic, normocephalic. EYES: Pupils equal round and reactive to light, extraocular movements intact, sclera anicteric, conjunctiva are normal. Eyelids were unremarkable. ENT: TMs normal, nares patent, oropharynx clear without exudates. Moist mucous membranes. NECK: Normal range of motion, supple without lymphadenopathy or JVD. LUNGS: Unlabored respirations. Breath sounds clear to auscultation bilaterally and equal. No wheezes rales or rhonchi. HEART: Regular rate and rhythm without murmurs, rubs or gallops. ABDOMEN: Soft, nontender, normoactive bowel sounds. No guarding, no rebound. No masses appreciated. : Deferred MUSCULOSKELETAL: Normal extremities with adequate strength and normal range of motion, no pitting or edema. No clubbing or cyanosis. She has pain with palpation of the right upper thoracic area, just below the right scapula. There is no obvious signs of bruising or erythema. She does have full right shoulder range of motion. NEUROLOGICAL: Patient is alert and oriented x 3. Motor and sensory are also intact. Cranial nerves II through XII grossly intact. Symmetrical smile. Normal speech, normal gait. PSYCH: Normal mood, normal affect. SKIN: Warm, Dry, normal turgor, no rashes or lesions noted. Limitations: no limitations Course Vital Signs 03/08/20 16:03 Temperature 98.2 F Pulse Rate 95 Respiratory 24 Rate Blood Pressure 133/101 O2 Sat by Pulse 100 Oximetry Medical Decision Making - Medical Decision Making Patient is 55-year-old female here with sudden onset of right upper back pain after scrubbing the stove about 2 hours ago. Patient is afebrile, slightly hypertensive. With patient's recent history of double mastectomy and history of blood clots, I did order a chest CTA, this was negative for any PEs or aortic aneurysm or dissection. Patient was given Toradol and Valium, she does report improvement in her symptoms, she is resting comfortably. Patient's lab work is also stable. Discussed these findings with the patient. This is most likely a muscle spasm. I did recommend left heat to the area, gentle stretching and a trial of muscle relaxer at night. She may also take her already prescribed pain medication at home. She is in agreement with this plan of care. If symptoms persist she can follow up with her PCP. Return parameters were discussed with the patient she verbalized understanding. Case discussed Dr. Reis. - Lab Data Result diagrams: 03/08/20 16:53 03/08/20 16:53 Lab Results 03/08/20 03/08/20 Range/Units 16:53 16:53 WBC 8.6 (3.8-10.6) k/uL RBC 4.69 (3.80-5.40) m/uL Hgb 14.0 (11.4-16.0) gm/dL Hct 42.0 (34.0-46.0) % MCV 89.6 D (80.0-100.0) fL MCH 29.8 (25.0-35.0) pg MCHC 33.3 (31.0-37.0) g/dL RDW 12.9 (11.5-15.5) % Plt Count 257 (150-450) k/uL MPV 8.5 Neutrophils % 77 % Lymphocytes % 15 % Monocytes % 5 % Eosinophils % 1 % Basophils % 0 % Neutrophils # 6.6 (1.3-7.7) k/uL Lymphocytes # 1.3 (1.0-4.8) k/uL Monocytes # 0.4 (0-1.0) k/uL Eosinophils # 0.1 (0-0.7) k/uL Basophils # 0.0 (0-0.2) k/uL Sodium 139 (137-145) mmol/L Potassium 4.3 (3.5-5.1) mmol/L Chloride 106 (98-107) mmol/L Carbon Dioxide 24 (22-30) mmol/L Anion Gap 9 mmol/L BUN 13 (7-17) mg/dL Creatinine 0.71 (0.52-1.04) mg/dL Est GFR (CKD-EPI)AfAm >90 (>60 ml/min/1.73 sqM) Est GFR (CKD-EPI)NonAf >90 (>60 ml/min/1.73 sqM) Glucose 114 H (74-99) mg/dL Calcium 9.6 (8.4-10.2) mg/dL Total Bilirubin 0.4 (0.2-1.3) mg/dL AST 32 (14-36) U/L ALT 51 H (4-34) U/L Alkaline Phosphatase 73 (38-126) U/L Total Protein 7.6 (6.3-8.2) g/dL Albumin 4.7 (3.5-5.0) g/dL Disposition Clinical Impression: Right-sided thoracic back pain, Muscle spasm Disposition: HOME SELF-CARE Condition: Stable Instructions (If sedation given, give patient instructions): Thoracic Pain (ED) Additional Instructions: Please return to the Emergency Department if symptoms worsen or any other conc erns. Scan and lab work today are normal. This is most likely a muscle spasm. Recommend heat to the area, very gentle stretching as tolerated, may continue with Tylenol or Motrin for discomfort. Trial for muscle relaxant at night for spasms. Follow-up with your regular doctor if symptoms persist. Prescriptions: Cyclobenzaprine [Flexeril] 5 mg PO TID PRN #10 tablet PRN Reason: Muscle Spasm Is patient prescribed a controlled substance at d/c from ED?: No Referrals: Trevon Melchor DO [Primary Care Provider] - 1-2 days
[2020-03-08 17:12] LABS: ALT 51 U/L (4-34); AST 32 U/L (14-36); African American GFR (CKD) >90 (>60 ml/min/1.73 sqM); Albumin 4.7 g/dL (3.5-5.0); Alkaline Phosphatase 73 U/L (38-126); Anion Gap 9 mmol/L; Blood Urea Nitrogen 13 mg/dL (7-17); Calcium 9.6 mg/dL (8.4-10.2); Carbon Dioxide 24 mmol/L (22-30); Chloride 106 mmol/L (98-107); Glucose 114 mg/dL (74-99); Non-African American GFR(CKD) >90 (>60 ml/min/1.73 sqM); Potassium 4.3 mmol/L (3.5-5.1); Sodium 139 mmol/L (137-145); Total Bilirubin 0.4 mg/dL (0.2-1.3); Total Protein 7.6 g/dL (6.3-8.2)
[2020-03-08 17:26] LABS: Basophils % (A) 0 %; Eosinophils # (A) 0.1 k/uL (0-0.7); Eosinophils % (A) 1 %; Lymphocytes # (A) 1.3 k/uL (1.0-4.8); Lymphocytes % (A) 15 %; MCH 29.8 pg (25.0-35.0); MCHC 33.3 g/dL (31.0-37.0); Mean Platelet Volume 8.5; Monocytes # (A) 0.4 k/uL (0-1.0); Monocytes % (A) 5 %; Neutrophils # (A) 6.6 k/uL (1.3-7.7); Neutrophils % (A) 77 %; Platelet Count 257 k/uL (150-450); RBC 4.69 m/uL (3.80-5.40); RDW 12.9 % (11.5-15.5); WBC 8.6 k/uL (3.8-10.6)
[2020-03-08 17:42] LABS: MCV 89.6 fL (80.0-100.0)
--- NOTE | 2020-03-08 18:18 | CT ---
EXAMINATION TYPE: CT chest angio for PE DATE OF EXAM: 03/08/2020 COMPARISON: None HISTORY: Pain below right scapula. Drooping right shoulder. PE vs dissection. CT DLP: 321.6 mGycm Automated exposure control for dose reduction was used. CONTRAST: Performed with IV Contrast, patient injected with 100 mL of Isovue 370. There are 3-D post processed images. Heart is enlarged. There is mild subsegmental atelectasis at the lung bases. There is mild interstiti al infiltrate at the lung bases. There is no pleural effusion. There is no pericardial effusion. Ther e are no hilar masses. There is no mediastinal adenopathy. Thoracic aorta shows no aneurysm or dissection. The ascending aorta measures 3.4 cm. There is normal contrast opacification of the pulmonary arteries. There are no filling defects. Bony thorax is intact. Sternum is intact. IMPRESSION: Interstitial infiltrates and subsegmental atelectasis at the lung bases. No evidence of pulmonary embolism.
[2020-03-08 18:38] VITALS: BP 139/95; PULSE 75; RESP 20; TEMP 98.4
== END 2020-03-08 18:38 | disposition home or self-care (01) ==
LOC: EC 15:47
DX: M54.6 Pain in thoracic spine (principal); M62.838 Other muscle spasm; C50.919 Malignant neoplasm of unspecified site of unspecified female breast; I10 Essential (primary) hypertension; Z79.01 Long term (current) use of anticoagulants; Z79.899 Other long term (current) drug therapy; Z79.890 Hormone replacement therapy; Z88.1 Allergy status to other antibiotic agents; Z88.2 Allergy status to sulfonamides; Z88.8 Allergy status to other drugs, medicaments and biological substances; Z88.6 Allergy status to analgesic agent; Z90.13 Acquired absence of bilateral breasts and nipples
CPT/HCPCS: 36415; 80053; 85025; 71275; 99284; 96374; 96375; J3360; J1885; Q9967

== ENCOUNTER → 2021-04-26 | Outpatient (CLI) | payer BC ==
--- NOTE | 2021-04-26 09:28 | US ---
EXAMINATION TYPE: US thyroid st tissue head/neck DATE OF EXAM: 04/26/2021 COMPARISON: NONE CLINICAL HISTORY: E04.1 Nontoxic single thyroid nodule. History of nodule and breast CA GLAND SIZE: Right Lobe: 4.5 x 1.6 x 1.3 cm Overall Parenchyma: homogenous Left Lobe: 4.4 x 1.7 x 1.3 cm Overall Parenchyma: homogeneous Isthmus Thickness: cm NODULES RIGHT: # of nodules measured on right: 1 1. 0.5 X 0.4 x 0.5 cm, mid medial, solid or almost completely solid, hypoechoic nodule, which is wi zo than tall, with ill-defined margins, without echogenic foci. Lesion is not clearly within the thyroid gland, may be posterior LEFT: # of nodules measured on left: 0 ISTHMUS: # of nodules measured in the isthmus: 0 Bilateral neck scanned, no evidence of lymphadenopathy. IMPRESSION: Subcentimeter possible thyroid nodule, follow-up ultrasound recommended in one year, moderately suspi cious 2017 ACR TI-RADS LEVEL: TR 4 *Highest TI-RADS level nodule reported
== END | disposition home or self-care (01) ==
LOC: RADUSWWP 07:01
PROVIDERS: ATTEND Family Medicine
DX: E04.1 Nontoxic single thyroid nodule (principal)
CPT/HCPCS: 76536

== ENCOUNTER → 2021-04-29 | Outpatient (CLI) | payer BC ==
--- NOTE | 2021-04-29 14:51 | NM ---
EXAMINATION TYPE: NM bone scan whole body DATE OF EXAM: 04/29/2021 COMPARISON: 08/14/2018 HISTORY: Breast cancer Delayed whole-body scanning was performed following the injection of 22.6 mCi Tc 99m MDP. Images acq uired 3 hours post injection. FINDINGS: There is no abnormal uptake involving the lower thoracic spine. There is no abnormal uptake involving the lateral margin lower cervical spine. Faint abnormal uptake involving the thoracic or lumbar spine likely degenerative. More intense uptake involving the upper l umbar spines approximately L1. Abnormal uptake involving the feet, knees and shoulders. The most likely degenerative or post arthrit ic. Abnormal uptake is seen superimposed over the right sacrum or lateral margin of the right rib cage ap pears new. IMPRESSION: 1. There is no abnormal uptake involving the lower thoracic spine for which x-ray correlation is vikki bustamante. 2. There is no abnormal uptake overlying the posterior lateral right rib cage or medial margin of the scapula. X-ray correlation is recommended 3. New abnormal uptake at the level of L1/x-ray correlation is suggested. There are no recent x-rays or CT scans for comparison. 4. Other areas of more faint uptake involving the thoracic and lower lumbar spine are felt to be most likely degenerative. Faint uptake involving the lower cervical spine on the right is felt more likel y degenerative but also recommend x-ray correlation.
== END | disposition home or self-care (01) ==
LOC: RADNMMAIN 09:38
PROVIDERS: ATTEND Internal Medicine Hematology & Oncology
DX: Z03.89 Encounter for observation for other suspected diseases and conditions ruled out (principal); C50.412 Malignant neoplasm of upper-outer quadrant of left female breast
CPT/HCPCS: 78306; A9503

== ENCOUNTER 2021-05-02 08:24 | Day surgery (SDC) | payer BC ==
[2021-04-25 13:50] VITALS: BMI 32.1
[~2021-05-02 08:24] MED LIST changes: +ACETAMINOPHEN TAB 500 MG TAB PO PRN; -ALPRAZolam 0.25 MG TAB PO PRN; -ALPRAZolam 0.5 MG TAB PO PRN; -ASPIRIN 325 MG TAB PO STA; -ATORVASTATIN 80 MG TAB PO STA; -CARVEDILOL 12.5 MG TAB PO SCH; -CHOLECALCIFEROL 1,000 UNIT TAB PO SCH; -CLINDAMYCIN TOPICAL SCH; -CRANBERRY FRUIT EXTRACT 4200 MG PO SCH; -CYANOCOBALAMIN 5000 MCG PO SCH; +DEXAMETHASONE SOD PHOSPHATE 4 MG/ML 1 ML VIAL IV ONE; -DIGOXIN 125 MCG TAB PO SCH; -HEPARIN SODIUM 1,000 UN/ML (10ML VL) IV ONE; -HEPARIN SODIUM 1,000 UN/ML (10ML VL) ONE; +HEPARIN SODIUM,PORCINE/PF 5,000 UNIT/0.5 ML SYRINGE SQ PRN; -IOPAMIDOL-370 125ML BTL INJ ONE; -KRILL OIL 500 MG PO SCH; +LACTATED RINGERS 1,000 ML IV SCH; -LIDOCAINE 1% INJ 10MG/ML (20 ML MDV) ONE; -LIDOCAINE 1% INJ 10MG/ML (20 ML MDV) SQ ONE; -LOPERAMIDE HCL 2 MG PO PRN; -MELATONIN 20 MG PO SCH; -MIDAZOLAM 2 MG/2 ML VIAL IV ONE; +MIDAZOLAM 2 MG/2 ML VIAL IV PRN; -MULTIVITAMINS, THERA 1 EACH TAB PO SCH; -NITROGLYCERIN SL TABS 0.4 MG TAB SUBLINGUAL PRN; -NON FORMULARY DRUG (L.Acidoph,Paracasei, B.Lactis [Probiotic] 1 CAP) PO SCH; -NON FORMULARY DRUG (Omeprazole 20 MG) PO SCH; -NON FORMULARY DRUG (Ubidecarenone [Co Q-10] 100 MG) PO SCH; -NON FORMULARY DRUG (Vitamin C/Biotin [Hair, Skin And Nails] 1 TAB) PO SCH; +ONDANSETRON 4 MG/2 ML VIAL IVP ONE; -PREGABALIN 150 MG PO SCH; -PYRIDOXINE HCL 100 MG PO SCH; +Pre Op ABX Message 1 EACH MISC MISCELLANE ONE; -RX INFO: IV CONTRAST WAS GIVEN 1 EACH MISC MISCELLANE PRN; -SACUBITRIL/VALSARTAN 24 MG-26 MG TABLET PO SCH; +SCOPOLAMINE 1.5MG/72HR PATCH TRANSDERM ONE; -SODIUM CHLORIDE 0.9% 1,000 ML IV SCH; -SODIUM CHLORIDE 0.9% 1,000 ML in EMPTY BAG 1 BAG IV ONE; -SPIRONOLACTONE 25 MG TAB PO SCH; -TAMOXIFEN 10 MG TAB PO SCH; -TURMERIC ROOT EXTRACT PO SCH; -VERAPAMIL 2.5 MG/ML 2 ML AMP ONE; -VERAPAMIL SYRINGE (5 MG/10 ML) INTRAARTER ONE; -fentaNYL (PF) 50 MCG/ML 2 ML AMP IV ONE; -fentaNYL (PF) 50 MCG/ML 2 ML AMP ONE
[2021-05-02] MEDS ORDERED: LIDOCAINE 1% (10MG/ML) FOR IV START INTRADERMA ONE (09:13)
--- NOTE | 2021-05-02 09:45 | P.GSHP ---
History of Present Illness H&P Date: 05/02/21 Chief Complaint: Breast cancer 56-year-old female known to our service. Patient had a previous port placed on the right side for treatment of breast cancer. 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 Port needs to be replaced so that she can initiate hemotherapy. Patient is requesting the previous scar be excised but using the same location which seems reasonable. Past Medical History Past Medical History: Cancer, Deep Vein Thrombosis (DVT) Additional Past Medical History / Comment(s): IBS, ulcerative colitis, frequent migraines, left breast ca/metastatic-Cancer [facility] in [place] History of Any Multi-Drug Resistant Organisms: None Reported Past Surgical History: Breast Surgery, Orthopedic Surgery, Tubal Ligation Additional Past Surgical History / Comment(s): tail bone fractured and removed in 9th grade, delgado breast bx and lymph node in neck bx, delgado mastectomy with reconstruction and revision Past Anesthesia/Blood Transfusion Reactions: Previous Problems w/ Anesthesia, Postoperative Nausea & Vomiting (PONV) Additional Past Anesthesia/Blood Transfusion Reaction / Comment(s): "Very hard time coming out of anesthesia and emotional when initiated" Past Psychological History: No Psychological Hx Reported Smoking Status: Never smoker Past Alcohol Use History: None Reported Past Drug Use History: None Reported - Past Family History Mother Family Medical History: Eye Disorder, Osteoarthritis (OA) Additional Family Medical History / Comment(s): Crohns Father History Unknown: Yes Son(s) Additional Family Medical History / Comment(s): Crohns Medications and Allergies Home Medications Medication Instructions Recorded Confirmed Type Cholecalciferol [Vitamin D3 (25 5,000 unit PO DAILY 10/26/17 04/25/21 History Mcg = 1000 Iu)] L.acidoph,Paracasei, B.lactis 1 cap PO DAILY 10/26/17 04/25/21 History [Probiotic] Omeprazole [PriLOSEC] 40 mg PO DAILY 11/18/17 05/02/21 History Apixaban [Eliquis] 5 mg PO BID 08/05/18 05/02/21 History Cranberry Fruit Extract [Cranberry] 4,200 mg PO DAILY 08/05/18 04/25/21 History Turmeric Root Extract [Turmeric] 500 mg PO BID 07/09/19 05/02/21 History carvediloL [Coreg*] 6.25 mg PO BID 07/09/19 04/25/21 History Docusate [Colace] 200 mg PO BID 04/25/21 05/02/21 History Losartan [Cozaar] 25 mg PO HS 04/25/21 05/02/21 History Nf-Elsinore 1,030 mg PO BID 04/25/21 04/25/21 History Oxybutynin Chloride 10 mg PO HS 04/25/21 05/02/21 History Pregabalin [Lyrica] 75 mg PO BID 04/25/21 04/25/21 History Sennosides/Docusate Sodium 2 each PO DIRECTED 04/25/21 05/02/21 History [Senna-S 8.6-50 mg Tablet] Vitamin E (Dl,Tocopheryl Acet) 400 unit PO BID 04/25/21 04/25/21 History [Vitamin E (400 Iu = 180 mg)] Allergies Allergy/AdvReac Type Severity Reaction Status Date / Time levofloxacin [From Levaquin] Allergy Rash/Hives Verified 04/25/21 13:16 nitrofurantoin Allergy Rash/Hives Verified 04/25/21 13:16 [From Macrobid] sulfamethoxazole Allergy Rash/Hives Verified 04/25/21 13:16 [From Bactrim] trimethoprim [From Bactrim] Allergy Rash/Hives Verified 04/25/21 13:16 adhesive tape AdvReac Unknown sewell skin Verified 04/25/21 13:16 dextromethorphan AdvReac Very Sleepy Verified 04/25/21 13:16 [From NyQuil] diphenhydramine AdvReac states Verified 04/25/21 13:16 [From Benadryl] "goofy, drunk" doxylamine [From NyQuil] AdvReac very sleepy Verified 04/25/21 13:16 pamabrom [From Midol] AdvReac Confusion Verified 04/25/21 13:16 pseudoephedrine [From NyQuil] AdvReac very sleepy Verified 04/25/21 13:16 empirin aspirin Allergy Unknown Rash/Hives Uncoded 04/25/21 13:16 Surgical - Exam Vital Signs Temp Pulse Resp BP Pulse Ox 99 F 65 16 140/80 95 05/02/21 09:00 05/02/21 09:00 05/02/21 09:00 05/02/21 09:00 05/02/21 09:00 Physical exam: General: Well-developed, well-nourished HEENT: Normocephalic, sclerae nonicteric Abdomen: Nontender, nondistended Extremities: No edema Neuro: Alert and oriented Assessment and Plan (1) Breast CA Narrative/Plan: Will proceed with Port-A-Cath placement at this time. We'll try to use the same location as previous. Risks of bleeding, infection, DVT, pneumothorax, catheter malfunction, anesthesia related complications were discussed. The patient understands and wishes to proceed. Current Visit: No Status: Acute Priority: High Code(s): C50.919 - MALIGNANT NEOPLASM OF UNSP SITE OF UNSPECIFIED FEMALE BREAST SNOMED Code(s): 077337863
[2021-05-02] MEDS ORDERED: MIDAZOLAM 2 MG/2 ML VIAL ONE (09:57)
[2021-05-02] MEDS ORDERED: PROPOFOL 10 MG/ML 20 ML VIAL IV ONE (09:57)
[2021-05-02] MEDS ORDERED: ePHEDrine 50 MG/ML 1 ML VIAL ONE (09:57)
[2021-05-02] MEDS ORDERED: fentaNYL (PF) 50 MCG/ML 2 ML AMP ONE (09:57)
[2021-05-02] MEDS ORDERED: LIDOCAINE 1% INJ 10MG/ML (20 ML MDV) ONE (09:57)
[2021-05-02] MEDS ORDERED: SODIUM CHLORIDE 0.9% 100 ML with ceFAZolin 2,000 MG IV ONE ×2 (10:20)
[2021-05-02] MEDS ORDERED: LIDOCAINE 1% INJ 10MG/ML (20 ML MDV) SQ ONE ×2 (10:25)
[2021-05-02] MEDS ORDERED: NALOXONE 0.4 MG/ML 1 ML VIAL IV PRN (11:02)
[2021-05-02] MEDS ORDERED: HYDROcodone/APAP 5-325MG 1 EACH TAB PO PRN (11:02)
--- NOTE | 2021-05-02 11:04 | FL ---
EXAMINATION TYPE: FL guided central line placemt HISTORY: Fluoroscopy time Impression: 1. Fluoroscopy support provided to the referring physician.
--- NOTE | 2021-05-02 11:04 | P.OP ---
Date of Procedure: 05/02/21 Procedure(s) Performed: PREOPERATIVE DIAGNOSIS: Metastatic breast cancer POSTOPERATIVE DIAGNOSIS: Same PROCEDURE: Port-A-Cath placement with fluoroscopic and ultrasound guidance SURGEON: Pushpa EBL: 10 mL ANESTHESIA: General COMPLICATIONS: None OPERATIVE PROCEDURE: Patient was brought and placed on the operative table in the supine position. The patient was placed under general anesthesia per anesthesia that time. The chest and neck were prepped and draped in usual sterile fashion. The ultrasound probe was used to identify the location of the right internal jugular vein. The skin was localized with lidocaine. The Seldinger needle was advanced into the IJ under ultrasound guidance. The wire was advanced through the needle under fluoroscopic guidance into the superior vena cava. A port pocket was created in the right infraclavicular location. The previous scar incision was reexcised. The catheter was tunneled from the wire entrance site to the port pocket. The port was then connected to the catheter. The dilator introducer was threaded over the guidewire. The guidewire and dilator were then removed. The catheter was advanced through the introducer and introducer was then removed. The tip was seen to be in the right atrial junction via fluoroscopy. A picture of the radiograph showing the tip at the radial digital junction was taken. Port was flushed with both saline and a Hep-Lock solution. There was good flow both in and out of the port. The port was sutured in underlying tissues using 3-0 silk sutures. The subcutaneous tissues were reapproximated using 3-0 Vicryl sutures and the skin at both locations using 4-0 Monocryl sutures. Skin glue and sterile dressings then applied. DISPOSITION: Stable to recovery room
[2021-05-02 11:06] VITALS: TEMP 97
[2021-05-02] MEDS: HYDROmorphone 0.5 MG/0.5 ML SYRINGE IVP PRN ×3 (11:19→11:41)
[2021-05-02] MEDS ORDERED: LACTATED RINGERS 1,000 ML IV ONE ×2 (11:32)
--- NOTE | 2021-05-02 11:42 | XR ---
EXAMINATION TYPE: XR chest 1V confirm line [facility] DATE OF EXAM: 05/02/2021 COMPARISON: NONE HISTORY: Port placement TECHNIQUE: Single frontal view of the chest is obtained. FINDINGS: Mediport seen with the tip overlying the SVC. No sizable pneumothorax. Bilateral areas of vague patchy infiltrate noted. Surgical clips overlying the axilla bilaterally and there is a curvatu re to the spine. Biapical pleural thickening. IMPRESSION: No acute process.
[2021-05-02] MEDS ORDERED: HYDROcodone/APAP 5-325MG 1 EACH TAB PO ONE (13:12)
[2021-05-02 13:25] VITALS: RESP 16
[2021-05-02] MEDS ORDERED: MORPHINE SULFATE 4 MG/ML SYRINGE ONE ×2 (13:56→14:27)
[2021-05-02] MEDS ORDERED: MORPHINE SULFATE 4 MG/ML SYRINGE IVP ONE ×2 (13:59→14:24)
[2021-05-02 14:57] VITALS: BP 136/85; PULSE 93
== END 2021-05-02 15:20 | disposition home or self-care (01) ==
LOC: OR 08:24
PROVIDERS: ATTEND Surgery
DX: C50.412 Malignant neoplasm of upper-outer quadrant of left female breast (principal); C79.9 Secondary malignant neoplasm of unspecified site
CPT/HCPCS: 36556; 77001; C1788; J2250; J2270; J1100; J2405; J0690; J2001; J3010; J1642; J2704; J1170; J1644

== ENCOUNTER → 2021-05-30 | Outpatient (CLI) | payer BC ==
--- NOTE | 2021-05-31 18:47 | MR ---
EXAMINATION TYPE: MR shoulder LT wo con DATE OF EXAM: 05/30/2021 COMPARISON: Correlation bone scan 04/29/2021 HISTORY: 56-year-old female Left shoulder pain, radiates into scapula, hx metastatic breast cancer. TECHNIQUE: Multiplanar, multisequence imaging of the left shoulder is performed without contrast. Ext ended field of view to include scapula. FINDINGS: The long head biceps tendon is intact and appropriately situated along the bicipital groove. Small intrasubstance tear at the insertion of the mid subscapularis tendon fibers. The majority of th e subscapularis tendon remains intact. There is moderate to severe degenerative change at the acromioclavicular joint with joint space narro wing, joint effusion, marginal spurring, subchondral cystic change, and capsular atrophy. Mild capsul ar edema is also noted. No significant encroachment onto the underlying rotator cuff. There is some thickening and fluid in the region of the coracoclavicular ligaments. There is trace fluid within the subacromial/subdeltoid bursa. Some minimal bursal sided fraying of th e supraspinatus tendon and some scattered intrasubstance change. No high-grade partial or full-thickness tear of either supraspinatus or infraspinous tendons. No atrophy of the rotator cuff musculature. However, there is subtle edema noted within the teres minor muscle belly. No mass lesion seen within the quadrilateral space. The glenohumeral joint is intact with physiologic joint fluid. Overall articular cartilage is maintai navya. No discrete labral tear given nonarthrographic technique and no paralabral cyst. Findings suggest the presence of a anterior superior sublabral recess. No Hill-Sachs deformity or os acromiale. Patchy red marrow is present intimately seen in the setting of anemia, obesity, smoking, chronic dise ase. No onofre destructive lesion identified of the visualized portion of the scapula. IMPRESSION: 1. Mild scattered rotator cuff tendinosis. There is some bursal sided fraying of strips and it is 10. Also, small intrasubstance tear at the insertion of the mid subscapularis tendon. No high-grade part ial or full-thickness rotator cuff tear. 2. 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 Findings could represent ac agatha exacerbation of underlying OA. However, given the thickening and fluid along the coracoclavicular ligaments, consider a low-grade AC joint sprain also affecting the coracoclavicular ligaments. No fr ank tear. 3. Very subtle edema of the teres minor muscle belly. Findings may be idiopathic but may also be seen in the setting of quadrilateral space syndrome. Clinically correlate. 4. No discrete abnormality of the visualized portion of the scapula.
== END | disposition home or self-care (01) ==
LOC: RADMRIMAIN 12:22
PROVIDERS: ATTEND Internal Medicine Hematology & Oncology
DX: M19.012 Primary osteoarthritis, left shoulder (principal); M25.412 Effusion, left shoulder

== ENCOUNTER → 2021-06-15 | Outpatient (CLI) | payer BC ==
--- NOTE | 2021-06-15 08:08 | US ---
EXAMINATION TYPE: US bladder DATE OF EXAM: 06/15/2021 COMPARISON: CT abdomen and pelvis November 18, 2017 CLINICAL HISTORY: R39.9 UNSPECIFIED SYMPTOMS AND SIGNS. Lower urinary tract symptoms. EXAM MEASUREMENTS: Bladder volume: 191.45 ml Post Void Residual Volume: No residual volume visualized. Color Doppler performed to assess ureteral jets. Bilateral Jets seen: Yes Normal Post Void Residual (less than 50ml): No residual volume visualized. Bladder is adequately distended without intraluminal mass or wall thickening. Bilateral distal ureter jets are seen. Bladder completely empties on voiding. IMPRESSION: Bladder ultrasound evaluation within normal limits.
== END | disposition home or self-care (01) ==
LOC: RADUSWWP 07:31
PROVIDERS: ATTEND Family Medicine
DX: R39.9 Unspecified symptoms and signs involving the genitourinary system (principal)
CPT/HCPCS: 76857

== ENCOUNTER 2021-10-27 17:36 | Inpatient (IN) | payer BC ==
--- NOTE | 2021-10-27 19:56 | ED ---
General Adult HPI - General Chief complaint: Urogenital Stated complaint: sent by cancer complications Time Seen by Provider: 10/27/21 18:50 Source: patient Mode of arrival: ambulatory Limitations: no limitations - History of Present Illness Initial comments: This 56-year-old female presents with with a complaint of urinary incontinence. She states that she has a history of breast cancer with metastases to her thoracic and lumbar spine. She states that she has had some mild to moderate incontinence over the past 3 months. The incontinence apparently is severe over the last 2 days. She states that she cannot hold any urine. She also states that she has upper and lower back pain. Her back pain seems to be most severe in her left upper lumbar region as well as her T10 region. She also relates that she has some bilateral arm and hand numbness. The numbness is worse in her hands. She states that she has occasional weakness to her legs but denies any paresthesias to her legs. She currently is under chemotherapy for her cancer. She has seen Dr. Villarreal from oncology but also has an oncologist through cancer [place] [facility] in [place]. She was sent in by her oncologist to obtain an MRI of her back to rule out any spinal cord impingement. She denies any fevers or chills. No other complaints or modifying factors. - Related Data Home Medications Medication Instructions Recorded Confirmed Cholecalciferol [Vitamin D3 (25 5,000 unit PO DAILY 10/26/17 04/25/21 Mcg = 1000 Iu)] L.acidoph,Paracasei, B.lactis 1 cap PO DAILY 10/26/17 04/25/21 [Probiotic] Omeprazole [PriLOSEC] 40 mg PO DAILY 11/18/17 05/02/21 Apixaban [Eliquis] 5 mg PO BID 08/05/18 05/02/21 Cranberry Fruit Extract [Cranberry] 4,200 mg PO DAILY 08/05/18 04/25/21 Turmeric Root Extract [Turmeric] 500 mg PO BID 07/09/19 05/02/21 carvediloL [Coreg*] 6.25 mg PO BID 07/09/19 04/25/21 Docusate [Colace] 200 mg PO BID 04/25/21 05/02/21 Losartan [Cozaar] 25 mg PO HS 04/25/21 05/02/21 Nf-Weed 3/6/9 1,030 mg PO BID 04/25/21 04/25/21 Oxybutynin Chloride 10 mg PO HS 04/25/21 05/02/21 Pregabalin [Lyrica] 75 mg PO BID 04/25/21 04/25/21 Sennosides/Docusate Sodium 2 each PO DIRECTED 04/25/21 05/02/21 [Senna-S 8.6-50 mg Tablet] Vitamin E (Dl,Tocopheryl Acet) 400 unit PO BID 04/25/21 04/25/21 [Vitamin E (400 Iu = 180 mg)] Allergies Allergy/AdvReac Type Severity Reaction Status Date / Time levofloxacin [From Levaquin] Allergy Rash/Hives Verified 10/27/21 18:12 nitrofurantoin Allergy Rash/Hives Verified 10/27/21 18:12 [From Macrobid] sulfamethoxazole Allergy Rash/Hives Verified 10/27/21 18:12 [From Bactrim] trimethoprim [From Bactrim] Allergy Rash/Hives Verified 10/27/21 18:12 adhesive tape AdvReac Unknown sewell skin Verified 10/27/21 18:12 dextromethorphan AdvReac Very Sleepy Verified 10/27/21 18:12 [From NyQuil] diphenhydramine AdvReac states Verified 10/27/21 18:12 [From Benadryl] "goofy, drunk" doxylamine [From NyQuil] AdvReac very sleepy Verified 10/27/21 18:12 pamabrom [From Midol] AdvReac Confusion Verified 10/27/21 18:12 pseudoephedrine [From NyQuil] AdvReac very sleepy Verified 10/27/21 18:12 empirin aspirin Allergy Unknown Rash/Hives Uncoded 10/27/21 18:12 Review of Systems ROS Statement: Those systems with pertinent positive or pertinent negative responses have been documented in the HPI. ROS Other: All systems not noted in ROS Statement are negative. Past Medical History Past Medical History: Cancer, Deep Vein Thrombosis (DVT) Additional Past Medical History / Comment(s): IBS, ulcerative colitis, frequent migraines, left breast ca/metastatic-Cancer [facility] in [place] History of Any Multi-Drug Resistant Organisms: None Reported Past Surgical History: Breast Surgery, Orthopedic Surgery, Tubal Ligation Additional Past Surgical History / Comment(s): tail bone fractured and removed in 9th grade, delgado breast bx and lymph node in neck bx, delgado mastectomy with reconstruction and revision Past Anesthesia/Blood Transfusion Reactions: Previous Problems w/ Anesthesia, Postoperative Nausea & Vomiting (PONV) Additional Past Anesthesia/Blood Transfusion Reaction / Comment(s): "Very hard time coming out of anesthesia and emotional when initiated" Past Psychological History: No Psychological Hx Reported Smoking Status: Never smoker Past Alcohol Use History: None Reported Past Drug Use History: None Reported - Past Family History Mother Family Medical History: Eye Disorder, Osteoarthritis (OA) Additional Family Medical History / Comment(s): Crohns Father History Unknown: Yes Son(s) Additional Family Medical History / Comment(s): Crohns General Exam - General Exam Comments Initial Comments: GENERAL: The patient is well nourished and well hydrated. VITAL SIGNS: Heart rate, blood pressure, respiratory rate reviewed as recorded in nurse's notes. EYES: Pupils are round and reactive. Extraocular movements are intact. No conjunctival / lid redness or swelling. ENT: No external evidence of injury, swelling, or ecchymosis. Airway is patent. Throat is clear. NECK: Nontender. No swelling or evidence of injury. No subcutaneous emphysema. Trachea is midline. No thyroid mass. HEART: Regular rate and rhythm. Good peripheral pulses. LUNGS/CHEST: Breath sounds clear and equal bilaterally. No rales, rhonchi, or wheezes. No ecchymosis, subcutaneous emphysema, or tenderness. ABDOMEN: Abdomen soft without tenderness. No palpable masses or organomegaly. No peritoneal signs. No abdominal wall swelling or ecchymosis. EXTREMITIES: No extremity tenderness. Normal muscle tone and function. No thoracolumbar tenderness. Spine: There is some tenderness noted in the left upper lumbar paraspinal musculature. There also is tenderness to the spine primarily in the T9 through T11 region. NEUROLOGIC: Patient has subjective numbness to bilateral upper extremities. Drop Tester nial nerve exam reveals face is symmetrical, tongue is midline, speech is clear. SKIN: No abrasions or ecchymosis is noted. No induration or masses noted. PSYCHIATRIC: Alert and oriented. Appropriate behavior and judgment. Limitations: no limitations Course Vital Signs 10/27/21 10/27/21 18:08 18:35 Temperature 98.4 F Pulse Rate 85 78 Respiratory 18 Rate Blood Pressure 158/85 141/85 O2 Sat by Pulse 96 98 Oximetry Medical Decision Making - Medical Decision Making The patient was seen and examined. IV is established and laboratory is ordered. It is felt as though she would benefit from MRI scan of the thoracic and lumbar spine. This is ordered on a stat basis. Coordination for anesthesiology technologist is done through the surgery technician. The relate that the anesthesiology technologist/hospital's unable to accommodate a stat MRI scan but she can be admitted and they would do it in the a.m. Patient is agreeable with this plan. Case will be discussed with internal medicine and patient will be admitted overnight with MRI scan for the a.m. Disposition Clinical Impression: Back pain, Breast cancer, Spine metastasis, Urinary incontinence Disposition: ADMITTED IP TO THIS HOSP Condition: Fair Is patient prescribed a controlled substance at d/c from ED?: No Referrals: Trevon Melchor DO [Primary Care Provider] - 1-2 days
[2021-10-27 20:00] LABS: Albumin 4.1 g/dL (3.5-5.0); Calcium 9.1 mg/dL (8.4-10.2); Total Bilirubin 0.2 mg/dL (0.2-1.3); Total Protein 6.4 g/dL (6.3-8.2)
[2021-10-27 20:02] LABS: Basophils % (A) 1 %; Eosinophils # (A) 0.1 k/uL (0-0.7); Eosinophils % (A) 3 %; HCT 33.3 % (34.0-46.0); HGB 11.4 gm/dL (11.4-16.0); Lymphocytes # (A) 0.8 k/uL (1.0-4.8); Lymphocytes % (A) 22 %; MCH 32.8 pg (25.0-35.0); MCHC 34.3 g/dL (31.0-37.0); MCV 95.6 fL (80.0-100.0); Mean Platelet Volume 7.9; Monocytes # (A) 0.3 k/uL (0-1.0); Monocytes % (A) 8 %; Neutrophils # (A) 2.3 k/uL (1.3-7.7); Neutrophils % (A) 62 %; Platelet Count 227 k/uL (150-450); RBC 3.49 m/uL (3.80-5.40); WBC 3.8 k/uL (3.8-10.6)
[2021-10-27 21:30] LABS: Appearance,Urine Clear (Clear); Bilirubin,Urine Negative (Negative); Blood,Urine Negative (Negative); Color,Urine Light Yellow; Glucose,Urine (UA) Negative (Negative); Ketones,Urine Negative (Negative); Leukocyte Esterase,Urine Negative (Negative); Nitrite,Urine Negative (Negative); Protein,Urine Negative (Negative); Specific Gravity,Urine 1.006 (1.001-1.035); Urobilinogen,Urine <2.0 mg/dL (<2.0)
[2021-10-27] MEDS ORDERED: carvediloL 6.25 MG TAB PO PRN (21:36)
[2021-10-27] MEDS ORDERED: ONDANSETRON 4 MG/2 ML VIAL IVP PRN (21:37)
[2021-10-27] MEDS ORDERED: NALOXONE 0.4 MG/ML 1 ML VIAL IV PRN (21:37)
[2021-10-27] MEDS ORDERED: SENNOSIDES-DOCUSATE SODIUM 1 EACH TAB PO SCH (21:45)
[2021-10-27] MEDS: ACETAMINOPHEN TAB 325 MG TAB PO PRN (23:59)
[2021-10-28] MEDS: BUTALB/APAP/CAFF 50-325-40MG TAB PO PRN ×2 (08:25→19:38)
[2021-10-28] MEDS: PANTOPRAZOLE 40 MG TABLET PO SCH (08:26)
[2021-10-28] MEDS: LACTOBACILLUS ACIDOPH & BULGAR 1 EACH PACKET PO SCH (08:26)
[2021-10-28] MEDS: APIXABAN 5 MG TAB PO SCH ×2 (08:26→20:24)
[2021-10-28] MEDS: VITAMIN E (DL,TOCOPHERYL ACET) 400 UNIT (180 MG) CAP PO SCH ×2 (08:26→20:24)
[2021-10-28] MEDS: CHOLECALCIFEROL 125 MCG (5000 IU) TABLET PO SCH (08:26)
[2021-10-28] MEDS: DOCUSATE 100 MG CAP PO SCH ×2 (08:26→20:24)
[2021-10-28] MEDS ORDERED: FULVESTRANT 250 MG/5 ML SYRINGE IM SCH (09:00)
[2021-10-28] MEDS ORDERED: NON FORMULARY DRUG (Cranberry 4200mg 4,200 MG) PO SCH (09:00)
[2021-10-28] MEDS ORDERED: OXYCODONE MYRISTATE 13.5 MG PO SCH (09:00)
[2021-10-28] MEDS ORDERED: NON FORMULARY DRUG (Turmeric Root Extract [Turmeric] 500 MG Capsule) PO SCH (09:00)
[2021-10-28] MEDS ORDERED: ZOLEDRONIC ACID 4 MG/5 ML VIAL IV SCH (09:00)
[2021-10-28] MEDS ORDERED: NON FORMULARY DRUG (Vitamin B Complex [Vitamin B Complex] 1 EACH Capsule) PO SCH (09:00)
[2021-10-28] MEDS: ABEMACICLIB 50 MG PO SCH ×2 (10:46→20:25)
[2021-10-28 11:37] VITALS: RESP 16
[2021-10-28] MEDS: ACETAMINOPHEN TAB 325 MG TAB PO PRN ×2 (11:38→20:24)
[2021-10-28] MEDS: DEXAMETHASONE SOD PHOSPHATE 4 MG/ML 1 ML VIAL IVP SCH ×2 (14:48→20:24)
--- NOTE | 2021-10-28 15:20 | P.CONS ---
History of Present Illness - Reason for Consult Consult date: 10/28/21 Breast Cancer Requesting physician: Randy Colby - Chief Complaint hip pain - History of Present Illness Patient was last seen in September by Dr. Dorantes and at that time continued on Verzenio, AI, and has been admitted with worsening persistent urinary incontinence and increased back pain. Oncologic History: Rafael presented with brown L nipple discharge X 2 month. Diagnostic mammogram on 08/14/17 revealed an area of calcification measuring 5 cm in UOQ, U/S of breast on 08/23/17 revealing 2.2X2.4X2.9 cm solid lesion at 3 O'clock 0.9X0.3X0.9 solid lesion at 2 O'clock and 2 nodes in L axilla meauring 1.4X1.2 and 1.6X1.4 cm. She had 3 O'clock lesion core biopsy on 08/28/17 revealing Grade III infiltrating ductal carcinoma ER/IN 100%/35-40% Ton5iay +2 by IHC and equivocal by FISH (Ratio 1.4:1). Last mammogram 7 years ago. She denied prior breast abnormalities or using Estrogen-based products. She denies family history of Breast or Ovarian cancers, had menarche at age 15 , last MP 6 months ago. She is a lifetime non smoker, denies ETOH use. She is active mother of 2, enjoys normal performence status and quality of life. 11/16/17: Was started on T/C > Poor tolerance > treatemt changed to CMP (Received 11/12/17 at [facility]) > has mucositis (mild) and severe fatigue, no N/V. 12/14/17: Received cycle#2 of CMF at [facility] 2 weeks ago > better tolerated, less nausea (controlled with Compazine), less diarrhea and much less mucositis. 01/08/18: Tolerating Chemotherapy well > Colitis was worse after cycle#4 > resolved. She noted increased thickness of L breast skin medially ( Lower inner quad). 01/30/18: Feels Ok, tired and having body aches,diarrhea and abdominal pain after cycle#5 of CMF. 05/13/18: MRI Brain in March neg for metastatic Disease. Continued on letroz ole. [facility] plan to give radiation therapy and then treatment with HER2. 05/22/18: Rafael is status Post Port Placement (still feels nauseated from surgery 3 days ago), she has not restarted letrozole as she does not like the way she feels on it (further discussion in disc.), anxious to start radiation and systemic treatment, currently working with physical therapy. Pain is somewhat improved but would like to try lyrica instead of eurotin at the request of her pain management at [facility] 06/19/18: Feels Ok, on Femara 2.5mg 5 days / week. Reported weakness, lightheadedness and diarrhea X 1 day after Herceptin/Perjeta. She is tolerating Radiation therap well. 07/12/18: C/O severe pain in both shoulders with burning sensation radiating to both hands. She has mild hot flashes. Completing Radiation therapy to L chest wall/axilla. 09/03/18: C/O edema in both upper extremities, tolerated Herceptin/Perjeta well. Has severe arthralgias mostly in lower extremities. 09/25/18: Continues to have diffuse arthralgias, Tramadol ineffective. Tolerating Herceptin/Perjeta well, had mild diarrhea. She is very tired and worried about being able to return to work. 11/12/18: Not feeling well, C/O progressive diffuse skeletal pain, mostly in lower extremities, wrists and L chest wall/axilla. Lyrica no longer effective. 12/19/18: C/O new bilateral wrist pains of ? etiology, following with Dr Garcia. Was Re-evaluated by Dr Prather at [facility] > Perjeta re-started, started on Tamoxifen 20mg Po daily. LVEF decreased? 01/24/19: C/O weight gain & painful perpheral neuropathy. 04/18/19: Feels Ok, C/O increasing fatigue & exertional dyspnea. Tolerating Herceptin/Perjeta well. Echocardiogram: decreased LVEF to 45%. 06/03/19: Feels Ok, having exertional dyspnea, told by Cardiology at [facility] to have "Heart failure". Tolerating Tamoxifen well. 09/02/19: C/O severe skeletal cramps, numbness in hands/feet, hot flashes. She thinks symptoms are due to Tamoxifen. She was advised to try CBD oil by Dr Prather at [facility] 11/05/19: Not feeling well, C/O extreme fatigue, L sided chest wall and severe hot flashes. Symptoms not improved by holding Tamoxifen > back on Bustillo 20mg Po daily. Will have L chest wall implant removed in Dec 2019 at [facility]. 01/09/20: C/O severe lower abdominal pain following L chest reconstruction, R prophylactic mastectomy and abdominoplasty, C/O constipation. 04/19/21: C/O back pain & fatigue, was found to have Bone mets (CTCA) mainly spine with spinal canal impengment at L2 , Bx: Metastatic carcinoma C/W breast primary , ER/IN +/+ [id number] negative > XRT to spine, tried different narcotics analgesics with poor tolerance. Ibrance/Fslodex advised. CT Scan of CAP : No visceral mets. When seen today, she is C/O back pain, using heating pad only (Skin sewell !!) & generalized fatigue. She had COVID19 infection in late FEB 2021> recovered well. 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 06/10/21: Still with pain but has not started on fentanyl patch 07/08/21: Had Faslodex at [facility] in [place] last week, started Ibrance every other day per Dr Prather's recommendations due to severe skeletal pain & hair loss? Continues to have L shoulder pain 10/14/21: Feels Ok, had CT Scan/Bone scan at [facility] ? stable. Ibrance changed to Virzinio 2nd to Ibrance intolerance, having episodes of urinary incontinence. Review of Systems All systems: negative Constitutional: Reports as per HPI Past Medical History Past Medical History: Cancer, Deep Vein Thrombosis (DVT), Hypertension Additional Past Medical History / Comment(s): IBS, ulcerative colitis, frequent migraines, left breast ca/metastatic-Cancer [place] [facility] in [place] History of Any Multi-Drug Resistant Organisms: None Reported Past Surgical History: Breast Surgery, Orthopedic Surgery, Tubal Ligation Additional Past Surgical History / Comment(s): tail bone fractured and removed in 9th grade, delgado breast bx and lymph node in neck bx, delgado mastectomy with reconstruction and revision Past Anesthesia/Blood Transfusion Reactions: Previous Problems w/ Anesthesia, Postoperative Nausea & Vomiting (PONV) Additional Past Anesthesia/Blood Transfusion Reaction / Comm: "Very hard time coming out of anesthesia and emotional when initiated" Past Psychological History: No Psychological Hx Reported Smoking Status: Never smoker Past Alcohol Use History: None Reported Past Drug Use History: None Reported - Past Family History Mother Family Medical History: Eye Disorder, Hypertension, Osteoarthritis (OA) Additional Family Medical History / Comment(s): Crohns Father History Unknown: Yes Son(s) Additional Family Medical History / Comment(s): Crohns Medications and Allergies Home Medications Medication Instructions Recorded Confirmed Type L.acidoph,Paracasei, B.lactis 1 cap PO DAILY 10/26/17 10/27/21 History [Probiotic] Apixaban [Eliquis] 5 mg PO BID 08/05/18 10/27/21 History Turmeric Root Extract [Turmeric] 500 mg PO BID 07/09/19 10/27/21 History Docusate [Colace] 100 mg PO BID 04/25/21 10/27/21 History Losartan [Cozaar] 25 mg PO HS 04/25/21 10/27/21 History Sennosides/Docusate Sodium 2 tab PO TUTH 04/25/21 10/27/21 History [Senna-S 8.6-50 mg Tablet] Vitamin E (Dl,Tocopheryl Acet) 400 unit PO BID 04/25/21 10/27/21 History [Vitamin E (400 Iu = 180 mg)] Abemaciclib [Verzenio] 50 mg PO BID 10/27/21 10/27/21 History Butalb/Acetaminophen/Caffeine 1 tab PO Q6H PRN 10/27/21 10/27/21 History [Fioricet 50-325-40] Cholecalciferol (Vitamin D3) 250 mcg PO DAILY 10/27/21 10/27/21 History [Vitamin D3 (125 MCG = 5,000 IU)] Cranberry 4200mg 4,200 mg PO BID 10/27/21 10/27/21 History Fulvestrant 1 dose IM Q30D 10/27/21 10/27/21 History Magnesium Citrate 100mg 100 mg PO HS 10/27/21 10/27/21 History Melatonin [Melatonin ER] 10 mg PO HS 10/27/21 10/27/21 History Omeprazole 40 mg PO DAILY 10/27/21 10/27/21 History Oxybutynin Chloride [Oxybutynin 10 mg PO HS 10/27/21 10/27/21 History Chloride ER] Vitamin B Complex 1 cap PO DAILY 10/27/21 10/27/21 History Zoledronic Acid [Zometa] 1 dose IV Q30D 10/27/21 10/27/21 History carvediloL [Coreg] 6.25 mg PO BID PRN 10/27/21 10/27/21 History Allergies Allergy/AdvReac Type Severity Reaction Status Date / Time levofloxacin [From Levaquin] Allergy Rash/Hives Verified 10/27/21 20:22 nitrofurantoin Allergy Rash/Hives Verified 10/27/21 20:22 [From Macrobid] sulfamethoxazole Allergy Rash/Hives Verified 10/27/21 20:22 [From Bactrim] trimethoprim [From Bactrim] Allergy Rash/Hives Verified 10/27/21 20:22 adhesive tape AdvReac Unknown sewell skin Verified 10/27/21 20:22 dextromethorphan AdvReac Very Sleepy Verified 10/27/21 20:22 [From NyQuil] diphenhydramine AdvReac states Verified 10/27/21 20:22 [From Benadryl] "goofy, drunk" doxylamine [From NyQuil] AdvReac very sleepy Verified 10/27/21 20:22 pamabrom [From Midol] AdvReac Confusion Verified 10/27/21 20:22 pseudoephedrine [From NyQuil] AdvReac very sleepy Verified 10/27/21 20:22 empirin aspirin Allergy Unknown Rash/Hives Uncoded 10/27/21 18:12 Physical Exam Vitals: Vital Signs Temp Pulse Pulse Pulse Resp BP BP 10/28/21 11:36 98.6 F 70 16 138/87 10/28/21 08:39 89 138/89 10/28/21 04:04 97.9 F 63 14 104/64 10/28/21 02:22 16 10/27/21 23:21 98.6 F 74 16 113/81 10/27/21 21:19 60 16 117/74 10/27/21 18:35 78 141/85 10/27/21 18:08 98.4 F 85 18 158/85 Pulse Ox 10/28/21 11:36 96 10/28/21 08:39 10/28/21 04:04 95 10/28/21 02:22 10/27/21 23:21 98 10/27/21 21:19 96 10/27/21 18:35 98 10/27/21 18:08 96 Intake and Output 10/27/21 10/28/21 10/28/21 22:59 06:59 14:59 Other: Voiding Method Toilet Toilet Diaper Diaper Incontinent # Voids 2 Weight 87.997 kg 87.997 kg - Constitutional General appearance: cooperative - EENT Eyes: EOMI ENT: NA/AT - Neck Neck: normal ROM - Respiratory Respiratory: bilateral: diminished - Cardiovascular Rhythm: regularly irregular - Gastrointestinal General gastrointestinal: soft - Integumentary Integumentary: pale - Musculoskeletal Musculoskeletal: generalized weakness - Psychiatric Psychiatric: A&O x's 3 Results CBC & Chem 7: 10/27/21 19:46 10/27/21 19:46 Labs: Abnormal Lab Results - Last 24 Hours (Table) 10/27/21 10/27/21 Range/Units 19:46 19:46 RBC 3.49 L (3.80-5.40) m/uL Hct 33.3 L (34.0-46.0) % Lymphocytes # 0.8 L (1.0-4.8) k/uL Creatinine 1.18 H (0.52-1.04) mg/dL Glucose 102 H (74-99) mg/dL Assessment and Plan (1) Metastatic breast cancer Narrative/Plan: Most recently on Verzenio and AI Follows with [facility] and Dr. Madhuri Dorantes Current Visit: Yes Status: Acute Code(s): C50.919 - MALIGNANT NEOPLASM OF UNSP SITE OF UNSPECIFIED FEMALE BREAST SNOMED Code(s): 616737949 (2) Back pain Current Visit: Yes Status: Acute Code(s): M54.9 - DORSALGIA, UNSPECIFIED SNOMED Code(s): 324549297 (3) Urinary incontinence Narrative/Plan: - COncern of cord involvement and progression - Await MRIs - Start Dex/PPI - Dr. Dewitt Current Visit: Yes Status: Acute Code(s): R32 - UNSPECIFIED URINARY INCONTINENCE SNOMED Code(s): 330554815 Plan: Addendum: Dr. Dewitt has reviewed images on MRI and no evidence of cord involvement, dex may be discontinued Dr. Licona: I have completed the full history and physical and developed the above impression and plan, agree with dictation, dictated as a ascribe.
[2021-10-28] MEDS ORDERED: LORazepam 0.5 MG TAB PO PRN (16:44)
[2021-10-28] MEDS ORDERED: LACTULOSE 20 GM/30 ML CUP PO PRN (16:44)
[2021-10-28] MEDS ORDERED: TEMAZEPAM 15 MG CAP PO PRN (16:44)
[2021-10-28] MEDS ORDERED: CALCIUM CARBONATE 500 MG CHEWABLE PO PRN (16:44)
--- NOTE | 2021-10-28 16:47 | P.HPIM ---
History of Present Illness H&P Date: 10/28/21 Chief Complaint: Urinary incontinence This is a very pleasant 56-year-old patient, follows with Dr. Melchor. Patient was diagnosed with breast cancer back in 2018. Had surgery at that time. Has had couple of surgeries following that. Patient follows [facility] down with Dr. Woody oncologist and from [place]. Patient's treatment is comanage by both. Patient's had chemotherapy and immunotherapy. Patient has diagnosed to have metastatic disease now in the spine in February 2021. Medications are being changed accordingly. Patient has neuropathy. Some numbness tailing in the hand. Sometimes unsteady on her feet when walking. No fever no chills. Has been having some back discomfort. Patient started becoming incontinent of urine yesterday. With no knowledge of the same. The uterine: His height is starting for last 2 or 3 months. Patient has undergone MRI of the spine today pending results. at the bedside. Patient alternates between constipation and diarrhea because of IBS. Patient also known to have some cardiomyopathy because of her medications. No skin trouble. Appetite is fair no weight loss. Review of systems: GEN.: None EYES: None HEENT: None NECK: None RESPIRATORY: None CARDIOVASCULAR: None GASTROINTESTINAL: As above GENITOURINARY: As above MUSCULOSKELETAL: None LYMPHATICS: None HEMATOLOGICAL: None PSYCHIATRY: None NEUROLOGICAL: As above Past medical history to include: DVT, hypertension, IBS, ulcerative colitis, metastatic breast cancer, Social history: No smoking or alcohol. . Family history: Hypertension, osteoporosis, Crohn's Physical examination: VITAL SIGNS: 97.9, 63, 14, 104/64, 95% room air GENERAL: BMI 36.7, declining but awake comfortable. EYES: Pupils equal. Conjunctiva normal. HEENT: External appearance of nose and ears normal, oral cavity grossly normal. NECK: JVD not raised; masses not palpable. HEART: First and second heart sounds are normal; no edema. LUNGS: Respiratory rate normal; clear to auscultation. ABDOMEN: Soft, nontender, liver spleen not palpable, no masses palpable. PSYCH: Alert and oriented x3; mood and affect normal. MUSCULOSKELETAL:No Clubbing/cyanosis;muscles-grossly intact NEUROLOGICAL: [Cranial nerves grossly intact; no facial asymmetry, decrease in hand senior oracle dba. LYMPHATICS: No lymph nodes palpable in the axilla and neck INVESTIGATIONS, reviewed in the clinical context: White count 3.8 hemoglobin 11.4 platelets 227 potassium 4 creatinine 1.18 UA: Negative Assessment and plan: -Progressive urinary incontinence. Symptoms started about 2 or 3 months ago. Now patient is totally unaware when she is incontinent. Has known metastatic disease to the spine from breast cancer. MRI of the spine results pending. IV Solu-Medrol. -Peripheral neuropathy probably from side effect of previous chemotherapy. No pain. Causing gait dysfunction. Patient does not typically need any support for walking. Fall precautions -Obesity BMI 36.7 -Irritable bowel syndrome Laxative as needed -Chronic insomnia Melatonin ER 10 mg daily at bedtime -Chronic DVT Eliquis -Essential hypertension Cozaar 25 mg daily at bedtime -GERD PPI IV Solu-Medrol. A weight results of MRi. Oncology consultation. Resume home medications. Fall precautions. Care was discussed the patient has been at the bedside. Past Medical History Past Medical History: Cancer, Deep Vein Thrombosis (DVT), Hypertension Additional Past Medical History / Comment(s): IBS, ulcerative colitis, frequent migraines, left breast ca/metastatic-Cancer [facility] in [place] History of Any Multi-Drug Resistant Organisms: None Reported Past Surgical History: Breast Surgery, Orthopedic Surgery, Tubal Ligation Additional Past Surgical History / Comment(s): tail bone fractured and removed in 9th grade, delgado breast bx and lymph node in neck bx, delgado mastectomy with reconstruction and revision Past Anesthesia/Blood Transfusion Reactions: Previous Problems w/ Anesthesia, Postoperative Nausea & Vomiting (PONV) Additional Past Anesthesia/Blood Transfusion Reaction / Comment(s): "Very hard time coming out of anesthesia and emotional when initiated" Past Psychological History: No Psychological Hx Reported Smoking Status: Never smoker Past Alcohol Use History: None Reported Past Drug Use History: None Reported - Past Family History Mother Family Medical History: Eye Disorder, Hypertension, Osteoarthritis (OA) Additional Family Medical History / Comment(s): Crohns Father History Unknown: Yes Son(s) Additional Family Medical History / Comment(s): Crohns Medications and Allergies Home Medications Medication Instructions Recorded Confirmed Type L.acidoph,Paracasei, B.lactis 1 cap PO DAILY 10/26/17 10/27/21 History [Probiotic] Apixaban [Eliquis] 5 mg PO BID 08/05/18 10/27/21 History Turmeric Root Extract [Turmeric] 500 mg PO BID 07/09/19 10/27/21 History Docusate [Colace] 100 mg PO BID 04/25/21 10/27/21 History Losartan [Cozaar] 25 mg PO HS 04/25/21 10/27/21 History Sennosides/Docusate Sodium 2 tab PO TUTH 04/25/21 10/27/21 History [Senna-S 8.6-50 mg Tablet] Vitamin E (Dl,Tocopheryl Acet) 400 unit PO BID 04/25/21 10/27/21 History [Vitamin E (400 Iu = 180 mg)] Abemaciclib [Verzenio] 50 mg PO BID 10/27/21 10/27/21 History Butalb/Acetaminophen/Caffeine 1 tab PO Q6H PRN 10/27/21 10/27/21 History [Fioricet 50-325-40] Cholecalciferol (Vitamin D3) 250 mcg PO DAILY 10/27/21 10/27/21 History [Vitamin D3 (125 MCG = 5,000 IU)] Cranberry 4200mg 4,200 mg PO BID 10/27/21 10/27/21 History Fulvestrant 1 dose IM Q30D 10/27/21 10/27/21 History Magnesium Citrate 100mg 100 mg PO HS 10/27/21 10/27/21 History Melatonin [Melatonin ER] 10 mg PO HS 10/27/21 10/27/21 History Omeprazole 40 mg PO DAILY 10/27/21 10/27/21 History Oxybutynin Chloride [Oxybutynin 10 mg PO HS 10/27/21 10/27/21 History Chloride ER] Vitamin B Complex 1 cap PO DAILY 10/27/21 10/27/21 History Zoledronic Acid [Zometa] 1 dose IV Q30D 10/27/21 10/27/21 History carvediloL [Coreg] 6.25 mg PO BID PRN 10/27/21 10/27/21 History Allergies Allergy/AdvReac Type Severity Reaction Status Date / Time levofloxacin [From Levaquin] Allergy Rash/Hives Verified 10/27/21 20:22 nitrofurantoin Allergy Rash/Hives Verified 10/27/21 20:22 [From Macrobid] sulfamethoxazole Allergy Rash/Hives Verified 10/27/21 20:22 [From Bactrim] trimethoprim [From Bactrim] Allergy Rash/Hives Verified 10/27/21 20:22 adhesive tape AdvReac Unknown sewell skin Verified 10/27/21 20:22 dextromethorphan AdvReac Very Sleepy Verified 10/27/21 20:22 [From NyQuil] diphenhydramine AdvReac states Verified 10/27/21 20:22 [From Benadryl] "goofy, drunk" doxylamine [From NyQuil] AdvReac very sleepy Verified 10/27/21 20:22 pamabrom [From Midol] AdvReac Confusion Verified 10/27/21 20:22 pseudoephedrine [From NyQuil] AdvReac very sleepy Verified 10/27/21 20:22 empirin aspirin Allergy Unknown Rash/Hives Uncoded 10/27/21 18:12 Physical Exam Vitals: Vital Signs Temp Pulse Pulse Pulse Resp BP BP 10/28/21 08:39 89 138/89 10/28/21 04:04 97.9 F 63 14 104/64 10/28/21 02:22 16 10/27/21 23:21 98.6 F 74 16 113/81 10/27/21 21:19 60 16 117/74 10/27/21 18:35 78 141/85 10/27/21 18:08 98.4 F 85 18 158/85 Pulse Ox 10/28/21 08:39 10/28/21 04:04 95 10/28/21 02:22 10/27/21 23:21 98 10/27/21 21:19 96 10/27/21 18:35 98 10/27/21 18:08 96 Intake and Output 10/27/21 10/28/21 10/28/21 22:59 06:59 14:59 Other: Voiding Method Toilet Toilet Diaper Diaper Incontinent # Voids 2 Weight 87.997 kg 87.997 kg Results CBC & Chem 7: 10/27/21 19:46 10/27/21 19:46 Labs: Abnormal Lab Results - Last 24 Hours (Table) 10/27/21 10/27/21 Range/Units 19:46 19:46 RBC 3.49 L (3.80-5.40) m/uL Hct 33.3 L (34.0-46.0) % Lymphocytes # 0.8 L (1.0-4.8) k/uL Creatinine 1.18 H (0.52-1.04) mg/dL Glucose 102 H (74-99) mg/dL Thrombosis Risk Factor Assmnt - Choose All That Apply Any of the Below Risk Factors Present?: Yes Each Factor Represents 1 point: Age 41-60 years, Hx of IBD, Obesity (BMI >25) Other Risk Factors: Yes Each Risk Factor Represents 3 Points: History of DVT/PE Other congenital or acquired thrombophilia - If yes, enter type in comment: No Thrombosis Risk Factor Assessment Total Risk Factor Score: 6 Thrombosis Risk Factor Assessment Level: High Risk
--- NOTE | 2021-10-28 17:17 | P.CONS ---
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 She is status post neoadjuvant chemotherapy, followed by mastectomy and underwent a course of adjuvant radiotherapy finishing 07/17/2018 to the reconstructed breast and draining lymphatics with boost to undissected supraclav disease. She unfortunately was found to have bone metastases after a biopsy of L2. She apparently had radiation at [facility] in [place] to the T-spine (uncertain exact treatment site) in February. She has been on Ibrance, recently switched to Verzenio. The patient presented to the emergency room on October 27 at [facility]. She reports that she has had some difficulty with urinary stress incontinence over the past few months, but that usually this was relatively small volume. Over the past couple of days, she seems to have lost urinary control. She states that she has had a few episodes of larger volume incontinence. She feels no specific warning when this may happen. It usually happens when she is moving around, and does not bother her when she is lying down. She unfortunately has had ongoing difficulty with back pain. Specifically, she is currently complaining of in the lower central back a relatively constant discomfort that feels like a "softball." She also complains of some right lower back pain at the belt level. This seems new as well. Of note, just this past week the patient was switched to Verzenio secondary to difficulty with tolerating Ibrance. She follows with pain management in [place], and has had some recent changes in her medication regimen. Review of Systems Constitutional: Denies chills, Denies fever Eyes: denies blurred vision Ears, nose, mouth and throat: Reports headache Cardiovascular: Denies chest pain Respiratory: Denies cough, Denies dyspnea Gastrointestinal: Denies change in bowel habits Genitourinary: Reports as per HPI Musculoskeletal: Reports low back pain Integumentary: Denies rash Neurological: Reports headaches (history of migraines, 3-4 headaches per week), Denies confusion, Denies double vision Psychiatric: Denies anxiety, Denies confusion Past Medical History Past Medical History: Cancer, Deep Vein Thrombosis (DVT), Hypertension Additional Past Medical History / Comment(s): IBS, ulcerative colitis, frequent migraines, left breast ca/metastatic-Cancer [facility] in [place] History of Any Multi-Drug Resistant Organisms: None Reported Past Surgical History: Breast Surgery, Orthopedic Surgery, Tubal Ligation Additional Past Surgical History / Comment(s): tail bone fractured and removed in 9th grade, delgado breast bx and lymph node in neck bx, delgado mastectomy with reconstruction and revision Past Anesthesia/Blood Transfusion Reactions: Previous Problems w/ Anesthesia, Postoperative Nausea & Vomiting (PONV) Additional Past Anesthesia/Blood Transfusion Reaction / Comm: "Very hard time coming out of anesthesia and emotional when initiated" Past Psychological History: No Psychological Hx Reported Smoking Status: Never smoker Past Alcohol Use History: None Reported Past Drug Use History: None Reported - Past Family History Mother Family Medical History: Eye Disorder, Hypertension, Osteoarthritis (OA) Additional Family Medical History / Comment(s): Crohns Father History Unknown: Yes Son(s) Additional Family Medical History / Comment(s): Crohns Medications and Allergies Home Medications Medication Instructions Recorded Confirmed Type L.acidoph,Paracasei, B.lactis 1 cap PO DAILY 10/26/17 10/27/21 History [Probiotic] Apixaban [Eliquis] 5 mg PO BID 08/05/18 10/27/21 History Turmeric Root Extract [Turmeric] 500 mg PO BID 07/09/19 10/27/21 History Docusate [Colace] 100 mg PO BID 04/25/21 10/27/21 History Losartan [Cozaar] 25 mg PO HS 04/25/21 10/27/21 History Sennosides/Docusate Sodium 2 tab PO TUTH 04/25/21 10/27/21 History [Senna-S 8.6-50 mg Tablet] Vitamin E (Dl,Tocopheryl Acet) 400 unit PO BID 04/25/21 10/27/21 History [Vitamin E (400 Iu = 180 mg)] Abemaciclib [Verzenio] 50 mg PO BID 10/27/21 10/27/21 History Butalb/Acetaminophen/Caffeine 1 tab PO Q6H PRN 10/27/21 10/27/21 History [Fioricet 50-325-40] Cholecalciferol (Vitamin D3) 250 mcg PO DAILY 10/27/21 10/27/21 History [Vitamin D3 (125 MCG = 5,000 IU)] Cranberry 4200mg 4,200 mg PO BID 10/27/21 10/27/21 History Fulvestrant 1 dose IM Q30D 10/27/21 10/27/21 History Magnesium Citrate 100mg 100 mg PO HS 10/27/21 10/27/21 History Melatonin [Melatonin ER] 10 mg PO HS 10/27/21 10/27/21 History Omeprazole 40 mg PO DAILY 10/27/21 10/27/21 History Oxybutynin Chloride [Oxybutynin 10 mg PO HS 10/27/21 10/27/21 History Chloride ER] Vitamin B Complex 1 cap PO DAILY 10/27/21 10/27/21 History Zoledronic Acid [Zometa] 1 dose IV Q30D 10/27/21 10/27/21 History carvediloL [Coreg] 6.25 mg PO BID PRN 10/27/21 10/27/21 History Allergies Allergy/AdvReac Type Severity Reaction Status Date / Time levofloxacin [From Levaquin] Allergy Rash/Hives Verified 10/27/21 20:22 nitrofurantoin Allergy Rash/Hives Verified 10/27/21 20:22 [From Macrobid] sulfamethoxazole Allergy Rash/Hives Verified 10/27/21 20:22 [From Bactrim] trimethoprim [From Bactrim] Allergy Rash/Hives Verified 10/27/21 20:22 adhesive tape AdvReac Unknown sewell skin Verified 10/27/21 20:22 dextromethorphan AdvReac Very Sleepy Verified 10/27/21 20:22 [From NyQuil] diphenhydramine AdvReac states Verified 10/27/21 20:22 [From Benadryl] "goofy, drunk" doxylamine [From NyQuil] AdvReac very sleepy Verified 10/27/21 20:22 pamabrom [From Midol] AdvReac Confusion Verified 10/27/21 20:22 pseudoephedrine [From NyQuil] AdvReac very sleepy Verified 10/27/21 20:22 empirin aspirin Allergy Unknown Rash/Hives Uncoded 10/27/21 18:12 Physical Exam Vitals: Vital Signs Temp Pulse Pulse Pulse Resp BP BP 10/28/21 11:36 98.6 F 70 16 138/87 10/28/21 08:39 89 138/89 10/28/21 04:04 97.9 F 63 14 104/64 10/28/21 02:22 16 10/27/21 23:21 98.6 F 74 16 113/81 10/27/21 21:19 60 16 117/74 10/27/21 18:35 78 141/85 10/27/21 18:08 98.4 F 85 18 158/85 Pulse Ox 10/28/21 11:36 96 10/28/21 08:39 10/28/21 04:04 95 10/28/21 02:22 10/27/21 23:21 98 10/27/21 21:19 96 10/27/21 18:35 98 10/27/21 18:08 96 Intake and Output 10/28/21 10/28/21 10/28/21 06:59 14:59 22:59 Other: Voiding Method Toilet Toilet Diaper Diaper Incontinent # Voids 2 Weight 87.997 kg - Constitutional General appearance: no acute distress - EENT Eyes: EOMI, PERRLA ENT: hearing grossly normal - Neck Neck: no lymphadenopathy - Respiratory Respiratory: bilateral: CTA - Cardiovascular Rhythm: regular - Gastrointestinal General gastrointestinal: no soft, no tenderness - Integumentary Integumentary: no pale - Neurologic Neurologic: CNII-XII intact - Musculoskeletal Musculoskeletal: left sided weakness (4/5 strength left hip flexion. 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 She is status post neoadjuvant chemotherapy, followed by mastectomy and underwent a course of adjuvant radiotherapy finishing 07/17/2018 to the reconstructed breast and draining lymphatics with boost to undissected supraclav disease. She unfortunately was found to have bone metastases after a biopsy of L2. She apparently had radiation at [facility] in [place] to the T-spine (uncertain exact treatment site) in February. She has been on Ibrance, recently switched to Verzenio. She now presents with loss of urinary continence. She has ongoing back pain as well. Plan: 1. Urinary incontinence: Although the report has not been finalized, the patient has no evidence of spinal cord compression. When comparing her most recent MRI of the thoracic and lumbar spine to her prior MRI of the thoracic spine this past winter, in general there appear to be no new lesions in the treated lesions are smaller in size. We will await the final report from radiology, but the patient does not need any emergent radiotherapy to the spine. The patient does have some pain along the right lower belt line, and therefore it may be reasonable to consider a CT scan or MRI of the pelvis to ensure there is not lower disease we are missing. Would also be concerned that recent medication changes could be playing a role. 2. Metastatic breast cancer: As detailed above, the patient recently switched to Verzenio due to tolerance issues (not progression). She typically follows both with cancer treatment [facility] in [place] as well as Dr. Dorantes locally. We will attempt to obtain her outside radiotherapy records for further review. Time with Patient: Greater than 30
--- NOTE | 2021-10-28 18:31 | MR ---
EXAMINATION TYPE: MR tspine/lspine wo/w con DATE OF EXAM: 10/28/2021 COMPARISON: MRI [facility] open MRI dated 02/01/2021 HISTORY: back pain and incontinence CONTRAST: Performed utilizing 0 mL intravenous Gadavist gadolinium contrast. TECHNIQUE: Multiplanar, multiecho imaging on a 3.0 Angie magnet is performed through the thoracic spi ne. Spinal cord maintains normal signal through its visualized course. Vertebral body alignment is normal. There is signal change within the T10 level. No posterior wall displacement is evident. Findings are suggestive for metastatic lesion. There is signal change within the posterior right upper vertebral T9 level suspicious for a metastati c lesion. Signal changes present within the posterior right T6 level compatible with a metastatic les ion. No posterior wall displacement is evident. Disc heights are preserved. Disc hydration levels are preserved. No spinal canal stenosis is evident. IMPRESSIONS: 1. Signal change and lesions within the vertebral bodies of T6, T9, and T10 compatible with metastati c disease. These were present previously but are without posterior wall displacement on the current e xamination, an improvement from comparison. EXAMINATION TYPE: MR tspine/lspine wo/w con DATE OF EXAM: 10/28/2021 COMPARISON: 02/01/2021 thoracic spine HISTORY: back pain and incontinence CONTRAST: 0 mL intravenous Gadavist. TECHNIQUE: Multiplanar, multisequence images of the lumbar spine were acquired. FINDINGS: L5-S1: Mild broad-based disc bulge is present with anterior thecal sac contact. No AP spinal canal st enosis present. Facet hypertrophy is present. Neural foramen are patent. L4-L5: No significant disc bulge or disc herniation. No spinal canal stenosis. No foraminal stenosi s. L3-L4: No significant disc bulge or disc herniation. No spinal canal stenosis. No foraminal stenosi s. Left facet hypertrophy is present. There is some ligamentum flavum laxity with mild posterior late ral thecal sac compression. L2-L3: No significant disc bulge or disc herniation. No spinal canal stenosis. There is an enhancing osseous lesion within the left L2 pedicle with extension into the vertebral body and transverse proc ess. Some bony expansion may be present contributing to foraminal narrowing. This appears similar to the comparison study at the edge of the [id number]. L1-L2: No significant disc bulge or disc herniation. No spinal canal stenosis. No foraminal stenosi s. Subtle rounded lesion within the right L1 vertebral body may be present. No enhancement is evident . T12-L1: No significant disc bulge or disc herniation. No spinal canal stenosis. No foraminal stenos is. IMPRESSION: 1. L2 and possibly L1 metastatic bone lesions. 2. Bone expansion at the L2 level may be contributing to foraminal narrowing.
[2021-10-28] MEDS: LOSARTAN 25 MG TAB PO SCH (20:24)
[2021-10-28] MEDS: MAGNESIUM OXIDE 400 MG TAB PO SCH (20:24)
[2021-10-28] MEDS: OXYBUTYNIN 10 MG TAB.ER.24 PO SCH (20:24)
[2021-10-28] MEDS: MELATONIN 5 MG TABLET PO SCH (20:24)
--- NOTE | 2021-10-28 21:41 | XR ---
EXAMINATION TYPE: XR chest 2V DATE OF EXAM: 10/28/2021 5:17 PM COMPARISON: Chest x-ray 05/02/2021 TECHNIQUE: XR chest 2V . CLINICAL INDICATION:Female, 56 years old with history of History of cardiomyopathy; FINDINGS: Lungs/Pleura: Patchy bilateral interstitial airspace opacities are redemonstrated, not significantly changed from prior. No pneumothorax or pleural effusion. Pulmonary vascularity: Unremarkable. Heart/mediastinum: Cardiomediastinal silhouette is unremarkable. Musculoskeletal: No acute osseous pathology. Other findings: Surgical clips in the bilateral axilla. Lines/Tubes: Mediport catheter with distal tip projecting over the superior vena cava. IMPRESSION: Patchy bibasilar airspace opacities which are similar to prior.
[2021-10-29] MEDS: DEXAMETHASONE SOD PHOSPHATE 4 MG/ML 1 ML VIAL IVP SCH ×4 (00:54→17:56)
[2021-10-29] MEDS: CHOLECALCIFEROL 125 MCG (5000 IU) TABLET PO SCH (08:54)
[2021-10-29] MEDS: APIXABAN 5 MG TAB PO SCH ×2 (08:54→20:59)
[2021-10-29] MEDS: LACTOBACILLUS ACIDOPH & BULGAR 1 EACH PACKET PO SCH (08:54)
[2021-10-29] MEDS: DOCUSATE 100 MG CAP PO SCH ×2 (08:54→20:59)
[2021-10-29] MEDS: PANTOPRAZOLE 40 MG TABLET PO SCH (08:54)
[2021-10-29] MEDS: VITAMIN E (DL,TOCOPHERYL ACET) 400 UNIT (180 MG) CAP PO SCH ×2 (08:55→20:59)
[2021-10-29] MEDS: ABEMACICLIB 50 MG PO SCH ×2 (08:55→21:01)
[2021-10-29] MEDS: traMADol 50 MG TAB PO SCH ×3 (12:16→21:00)
[2021-10-29 13:18] LABS: African American GFR (CKD) >90 (>60 ml/min/1.73 sqM); Anion Gap 13 mmol/L; Blood Urea Nitrogen 11 mg/dL (7-17); Calcium 9.6 mg/dL (8.4-10.2); Carbon Dioxide 21 mmol/L (22-30); Chloride 104 mmol/L (98-107); Glucose 145 mg/dL (74-99); Non-African American GFR(CKD) >90 (>60 ml/min/1.73 sqM); Sodium 138 mmol/L (137-145)
--- NOTE | 2021-10-29 14:21 | P.PN ---
Progress Note - Text Progress Note Date: 10/29/21 Chief Complaint: Urinary incontinence This is a very pleasant 56-year-old patient, follows with Dr. Melchor. Patient was diagnosed with breast cancer back in 2017. Had surgery at that time. Has had couple of surgeries following that. Patient follows [facility] down with Dr. Woody oncologist and from [place]. Patient's treatment is being comanaged by both. Patient's had chemotherapy and immunotherapy. Patient has diagnosed to have metastatic disease now in the spine in February 2021. Medications are being changed accordingly. Patient has neuropathy. Some numbness tailing in the hand. Sometimes unsteady on her feet when walking. No fever no chills. Has been having some back discomfort. Patient started becoming incontinent of urine yesterday. With no knowledge of the same. The uterine: His height is starting for last 2 or 3 months. Patient has undergone MRI of the spine today pending results. at the bedside. Patient alternates between constipation and diarrhea because of IBS. Patient also known to have some cardiomyopathy because of her medications. No skin trouble. Appetite is fair no weight loss. October 29: Having lower back pain. No change in urinary incontinence symptoms. Add Ultram. K pad ordered. Patient was seen by radiation oncologist before MRI results are available. Continue with IV steroids. Dr. Boone from orthopedic spine consulted. Discussed with patient. Active Medications Acetaminophen (Acetaminophen Tab 325 Mg Tab) 650 mg PO Q6HR PRN PRN Reason: Mild Pain or Fever > 100.5 Last Admin: 10/28/21 20:24 Dose: 650 mg Acetaminophen/Butalbital/Caffeine (Butalb/Apap/Caff 50-325-40mg Tab) 1 each PO Q6H PRN PRN Reason: Migraine Headache Last Admin: 10/28/21 19:38 Dose: 1 each Apixaban (Apixaban 5 Mg Tab) 5 mg PO BID [facility]ENE; Protocol Last Admin: 10/29/21 08:54 Dose: 5 mg Calcium Carbonate/Glycine (Calcium Carbonate 500 Mg Chewable) 1,000 mg PO Q4HR PRN PRN Reason: Dyspepsia Carvedilol (Carvedilol 6.25 Mg Tab) 6.25 mg PO BID PRN PRN Reason: hold if SBP less than 100 Last Admin: 10/28/21 08:39 Dose: 6.25 mg Cholecalciferol (Cholecalciferol 125 Mcg (5000 Iu) Tablet) 250 mcg PO DAILY [facility] Last Admin: 10/29/21 08:54 Dose: 250 mcg Dexamethasone Sodium Phosphate (Dexamethasone Sod Phosphate 4 Mg/Ml 1 Ml Vial) 4 mg IVP Q6HR [facility] Last Admin: 10/29/21 12:16 Dose: 4 mg Docusate Sodium (Docusate 100 Mg Cap) 100 mg PO BID [facility] Last Admin: 10/29/21 08:54 Dose: 100 mg Lactobacillus Acidoph/Bulgaricus (Lactobacillus Acidoph & Bulgar 1 Each Packet) 1 each PO DAILY [facility] Last Admin: 10/29/21 08:54 Dose: 1 each Lactulose (Lactulose 20 Gm/30 Ml Cup) 20 gm PO DAILY PRN PRN Reason: Constipation Lorazepam (Lorazepam 0.5 Mg Tab) 0.5 mg PO Q6HR PRN PRN Reason: Anxiety Losartan Potassium (Losartan 25 Mg Tab) 25 mg PO [facility] Last Admin: 10/28/21 20:24 Dose: 25 mg Magnesium Oxide (Magnesium Oxide 400 Mg Tab) 200 mg PO [facility] Last Admin: 10/28/21 20:24 Dose: 200 mg Melatonin (Melatonin 5 Mg Tablet) 10 mg PO [facility] Last Admin: 10/28/21 20:24 Dose: 10 mg Naloxone HCl (Naloxone 0.4 Mg/Ml 1 Ml Vial) 0.2 mg IV Q2M PRN PRN Reason: Opioid Reversal Non-Formulary Medication (Abemaciclib [Verzenio]) 50 mg PO BID [facility] Last Admin: 10/29/21 08:55 Dose: 50 mg Ondansetron HCl (Ondansetron 4 Mg/2 Ml Vial) 4 mg IVP Q8HR PRN PRN Reason: Nausea And Vomiting Oxybutynin Chloride (Oxybutynin 10 Mg Tab.Er.24) 10 mg PO [facility] Last Admin: 10/28/21 20:24 Dose: 10 mg Pantoprazole Sodium (Pantoprazole 40 Mg Tablet) 40 mg PO -BRKFST [facility] Last Admin: 10/29/21 08:54 Dose: 40 mg Senna/Docusate Sodium (Sennosides-Docusate Sodium 1 Each Tab) 2 each PO TUTH [facility] Last Admin: 10/28/21 01:41 Dose: Not Given Tramadol HCl (Tramadol 50 Mg Tab) 25 mg PO QID [facility] Last Admin: 10/29/21 12:16 Dose: 25 mg Vitamin E (Vitamin E (Dl,Tocopheryl Acet) 400 Unit (180 Mg) Cap) 400 unit PO BID [facility] Last Admin: 10/29/21 08:55 Dose: 400 unit Zolpidem Tartrate (Zolpidem 5 Mg Tab) 5 mg PO [facility] Past medical history to include: DVT, hypertension, IBS, ulcerative colitis, metastatic breast cancer, Social history: No smoking or alcohol. . Family history: Hypertension, osteoporosis, Crohn's Physical examination: VITAL SIGNS: 98.3, 88, 16, 122/ 81, 98% room air GENERAL, reclining in bed comfortable. EYES: Pupils equal. Conjunctiva normal. HEENT: External appearance of nose and ears normal, oral cavity grossly normal. NECK: JVD not raised; masses not palpable. HEART: First and second heart sounds are normal; no edema. LUNGS: Respiratory rate normal; clear to auscultation. ABDOMEN: Soft, nontender, liver spleen not palpable, no masses palpable. PSYCH: Alert and oriented x3; mood and affect normal. 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 Gait as above INVESTIGATIONS, reviewed in the clinical context: Thoracic lumbar spine MRI with and without contrast: L2 and possible L1 metastatic bone lesion. Bone expansion to L2 may be contribution to for omental narrowing. October 29: Potassium 4 creatinine 0.67 White count 3.8 hemoglobin 11.4 platelets 227 potassium 4 creatinine 1.18 UA: Negative Chest x-ray film personally reviewed by me-possible chronic changes Telemetry strip personally reviewed by me: Sinus rhythm Assessment and plan: -Progressive urinary incontinence. Symptoms started about 2 or 3 months ago. Now patient is totally unaware when she is incontinent. Has known metastatic disease to the spine from breast cancer.: Not improving IV Solu-Medrol. L2 and possible L1 metastatic bone lesion. Bone expansion to L2 may be contribution to for omental narrowing. Orthopedics Dr. Boone consulted -Peripheral neuropathy probably from side effect of previous chemotherapy. No pain. Causing gait dysfunction. Patient does not typically need any support for walking. Fall precautions -Obesity BMI 36.7 -Acute kidney injury, likely prerenal Improve with IV fluids -Irritable bowel syndrome Laxative as needed -Chronic insomnia Melatonin ER 10 mg daily at bedtime -Chronic DVT Eliquis -Essential hypertension Cozaar 25 mg daily at bedtime -GERD PPI IV Solu-Medrol. Orthopedics Dr. Boone consulted. Other medications to continue. Discussed with patient.
[2021-10-29] MEDS: BUTALB/APAP/CAFF 50-325-40MG TAB PO PRN (14:32)
[2021-10-29] MEDS: MAGNESIUM OXIDE 400 MG TAB PO SCH (20:59)
[2021-10-29] MEDS: OXYBUTYNIN 10 MG TAB.ER.24 PO SCH (20:59)
[2021-10-29] MEDS: MELATONIN 5 MG TABLET PO SCH (20:59)
[2021-10-29] MEDS: LOSARTAN 25 MG TAB PO SCH (21:00)
[2021-10-29] MEDS ORDERED: ZOLPIDEM 5 MG TAB PO SCH (21:00)
[2021-10-30] MEDS: DEXAMETHASONE SOD PHOSPHATE 4 MG/ML 1 ML VIAL IVP SCH ×3 (00:28→12:35)
[2021-10-30] MEDS: CHOLECALCIFEROL 125 MCG (5000 IU) TABLET PO SCH (09:34)
[2021-10-30] MEDS: PANTOPRAZOLE 40 MG TABLET PO SCH (09:34)
[2021-10-30] MEDS: VITAMIN E (DL,TOCOPHERYL ACET) 400 UNIT (180 MG) CAP PO SCH (09:34)
[2021-10-30] MEDS: DOCUSATE 100 MG CAP PO SCH (09:34)
[2021-10-30] MEDS: ABEMACICLIB 50 MG PO SCH (09:35)
[2021-10-30] MEDS: traMADol 50 MG TAB PO SCH ×2 (09:35→12:35)
[2021-10-30] MEDS: APIXABAN 5 MG TAB PO SCH (09:35)
[2021-10-30] MEDS: LACTOBACILLUS ACIDOPH & BULGAR 1 EACH PACKET PO SCH (09:35)
--- NOTE | 2021-10-30 10:14 | P.CNOR ---
History of Present Illness - [facility] Consult date: 10/30/21 Consult reason: low back pain History of present illness: 56 yo female with known metestatic BCA presented due to bouts of incontinence and back pain. Pt currently being treated for her BCA at [facility] in [place]. She had radiation in Feb 2021 10 rounds and this was her last. She was started on new medications recently as well. She states bouts of incontinence when she bent forward or twisted over the past 3-5 days. She has had some in the past but this was worse. She denies any bowel issues. She denies any numbness/tingling in her LE, perineal region. She states no weakness in legs. She does state new [place] recently. Denies any other sx, no blurry vision or change in vision. Review of Systems 14 pt ROS completed and as stated in HPI, all other systems reviewed negative. Past Medical History Past Medical History: Cancer, Deep Vein Thrombosis (DVT), Hypertension Additional Past Medical History / Comment(s): IBS, ulcerative colitis, frequent migraines, left breast ca/metastatic-Cancer [facility] in [place] History of Any Multi-Drug Resistant Organisms: None Reported Past Surgical History: Breast Surgery, Orthopedic Surgery, Tubal Ligation Additional Past Surgical History / Comment(s): tail bone fractured and removed in 9th grade, delgado breast bx and lymph node in neck bx, delgado mastectomy with reconstruction and revision Past Anesthesia/Blood Transfusion Reactions: Previous Problems w/ Anesthesia, Postoperative Nausea & Vomiting (PONV) Additional Past Anesthesia/Blood Transfusion Reaction / Comm: "Very hard time coming out of anesthesia and emotional when initiated" Past Psychological History: No Psychological Hx Reported Smoking Status: Never smoker Past Alcohol Use History: None Reported Past Drug Use History: None Reported - Past Family History Mother Family Medical History: Eye Disorder, Hypertension, Osteoarthritis (OA) Additional Family Medical History / Comment(s): Crohns Father History Unknown: Yes Son(s) Additional Family Medical History / Comment(s): Crohns Medications and Allergies Home Medications Medication Instructions Recorded Confirmed Type L.acidoph,Paracasei, B.lactis 1 cap PO DAILY 10/26/17 10/27/21 History [Probiotic] Apixaban [Eliquis] 5 mg PO BID 08/05/18 10/27/21 History Turmeric Root Extract [Turmeric] 500 mg PO BID 07/09/19 10/27/21 History Docusate [Colace] 100 mg PO BID 04/25/21 10/27/21 History Losartan [Cozaar] 25 mg PO HS 04/25/21 10/27/21 History Sennosides/Docusate Sodium 2 tab PO TUTH 04/25/21 10/27/21 History [Senna-S 8.6-50 mg Tablet] Vitamin E (Dl,Tocopheryl Acet) 400 unit PO BID 04/25/21 10/27/21 History [Vitamin E (400 Iu = 180 mg)] Abemaciclib [Verzenio] 50 mg PO BID 10/27/21 10/27/21 History Butalb/Acetaminophen/Caffeine 1 tab PO Q6H PRN 10/27/21 10/27/21 History [Fioricet 50-325-40] Cholecalciferol (Vitamin D3) 250 mcg PO DAILY 10/27/21 10/27/21 History [Vitamin D3 (125 MCG = 5,000 IU)] Cranberry 4200mg 4,200 mg PO BID 10/27/21 10/27/21 History Fulvestrant 1 dose IM Q30D 10/27/21 10/27/21 History Magnesium Citrate 100mg 100 mg PO HS 10/27/21 10/27/21 History Melatonin [Melatonin ER] 10 mg PO HS 10/27/21 10/27/21 History Omeprazole 40 mg PO DAILY 10/27/21 10/27/21 History Oxybutynin Chloride [Oxybutynin 10 mg PO HS 10/27/21 10/27/21 History Chloride ER] Vitamin B Complex 1 cap PO DAILY 10/27/21 10/27/21 History Zoledronic Acid [Zometa] 1 dose IV Q30D 10/27/21 10/27/21 History carvediloL [Coreg] 6.25 mg PO BID PRN 10/27/21 10/27/21 History Allergies Allergy/AdvReac Type Severity Reaction Status Date / Time levofloxacin [From Levaquin] Allergy Rash/Hives Verified 10/27/21 20:22 nitrofurantoin Allergy Rash/Hives Verified 10/27/21 20:22 [From Macrobid] sulfamethoxazole Allergy Rash/Hives Verified 10/27/21 20:22 [From Bactrim] trimethoprim [From Bactrim] Allergy Rash/Hives Verified 10/27/21 20:22 adhesive tape AdvReac Unknown sewell skin Verified 10/27/21 20:22 dextromethorphan AdvReac Very Sleepy Verified 10/27/21 20:22 [From NyQuil] diphenhydramine AdvReac states Verified 10/27/21 20:22 [From Benadryl] "goofy, drunk" doxylamine [From NyQuil] AdvReac very sleepy Verified 10/27/21 20:22 pamabrom [From Midol] AdvReac Confusion Verified 10/27/21 20:22 pseudoephedrine [From NyQuil] AdvReac very sleepy Verified 10/27/21 20:22 empirin aspirin Allergy Unknown Rash/Hives Uncoded 10/27/21 18:12 Physical Examination Osteopathic Statement: *. No significant issues noted on an osteopathic structural exam other than those noted in the History and Physical/Consult. PHYSICAL EXAMINATION: Vitals: Stable at this time. General: Awake, alert, appropriate for age, in no acute distress. HEENT: No unusual neck masses around region of lateral neck triangle, thyroid, supraclavicular groove. Extremities: Skin warm and dry without no acute lesions, coloration, temperature, skin intact, no tenderness or erythema. Integument: Hairy patches: Absent Dorsal skin dimples: Absent Cafe au lait spots: Absent Surgical incisions: None Palpation: Please see Pain drawing on Intake sheet for further detail. (Tenderness = T, Nontender = NT, Swelling = S, Ecchymosis = E) Findings on Midline and paraspinal palpation and percussion: Cervical: NT Thoracic: Minimal, paraspinal Lumbar: Some paraspinal Sacral: NT Special findings: None POSTURAL and MUSCULO-SKELETAL EVALUATION: Neck ROM: [Unrestricted in six directions] Lumbar ROM: [Unrestricted in six directions] Shoulder ROM: Symmetric in abduction, ER/IR Hip ROM: Symmetric in abduction, adduction, ER/IR Knee ROM: Symmetric and intact in Flexion / extension Hands: Normal appearing structure L and R Feet: Normal appearing structure L and R VASCULAR STATUS : Wrist Pulses: [2/4 bilateral radial and ulnar] Pedal Pulses: [2/4 bilateral DP and PT] Color: [Normal] Edema: [None] NEUROLOGIC EXAMINATION: Mental Status: Awake and alert, fully oriented, with normal attention, concentration and memory, and fluent, appropriate speech. Cranial Nerves: I: Olfactory not tested. II: Visual acuity normal, no visual field deficit noted with confrontation. III,IV: Normal pupillary reflexes & intact extraocular movements without nystagmus. V,: Intact symmetrical facial sensation. VII: Intact symmetrical facial motor movement VIII: Hearing intact. IX,X: Intact gag, swallow, & normal voice. XI: Sternocleidomastoid, trapezius function intact. XII: Tongue midline with normal movements. Special Tests: L'hermitte's Sign: Absent Spurling'Sign: Absent Bilateral Cubital percussion test: Absent Bilateral Lizeth-Tinel sign - Carpal region: Absent Bilateral Straight Leg Raising: Absent Bilateral Motor Exam (0-5/5, N/T) STRENGTH UPPER EXTREMITY Shoulder Abd (Not part of STACY Motor score): RIGHT [5] LEFT [5] Elbow Flexors: RIGHT [5] LEFT [5] Elbow Extensor: RIGHT [5] LEFT [5] Wrrist Dorsiflexors: RIGHT [5] LEFT [5] Finger Abductor: RIGHT [5] LEFT [5] [employer]: RIGHT [5] LEFT [5] LOWER EXTREMITY Hip Flexor (Not part of STACY Motor Score): RIGHT [5] LEFT [5] Knee Flexor: RIGHT [5] LEFT [5] Knee Extensor: RIGHT [5] LEFT [5] Ankle Dorsiflexion: RIGHT [5] LEFT [5] Ankle Plantarflexion: RIGHT [5] LEFT [5] EHL: RIGHT [5] LEFT [5] FHL: RIGHT [5] LEFT [5] STACY Motor Score: RIGHT [50]/50 LEFT [50]/50 REFLEXES Biecp: RIGHT [2] LEFT [2] Tricep: RIGHT [2] LEFT [2] Brachioradialis: RIGHT [2] LEFT [2] Patellar: RIGHT [2] LEFT [2] Achilles: RIGHT [2] LEFT [2] Pathological Reflexes Baca's: RIGHT [Absent] LEFT [Absent] Babinski: RIGHT [Absent] LEFT [Absent] Clonus: RIGHT [None] LEFT [None] SENSORY Joint Position: [Intact bilaterally] Vibration [Intact bilaterally] Pain and LT sense [Intact C5-T1 and L2-S1] Dermatomal deficit [None] Gait and Functional Evaluation: Ambulatory aids: Independent Results MRI of the T and L spine reviewed. There are known lesions of Upper thoracic and mid to lower thoracic spine with some extension into the left pedicle at L2 and T6. There are no large compressive or epidural lesions that would explain her sx other than back pain. The L2 lesion is slightly changed in the pedicle causing foraminal stenosis however again no large compressive central lesions to explain her incontinence. - Labs Labs: Abnormal Lab Results - Last 24 Hours (Table) 10/29/21 Range/Units 12:33 Carbon Dioxide 21 L (22-30) mmol/L Glucose 145 H (74-99) mg/dL H & H 10/27/21 Range/Units 19:46 Hgb 11.4 (11.4-16.0) gm/dL Hct 33.3 L (34.0-46.0) % Result Diagrams: 10/27/21 19:46 10/29/21 12:33 Assessment and Plan Assessment: 1. Metestatic breast CA 2. Thoracic and lumbar metestatic foci 3. Thoracic and lumbar back pain 4. UI Plan: -Appreciate consult -No orthopedic surgical intervention at this time -Recommend Urology consult -Recommend MRI brain, C spine and possibly pelvis w/wo likey out pt work up -Steroids OK -Discussed findings with pt. No emergent lesions to decompress or stabilize at this time. Her back and radiating pain is explained by her lesions, but they do not cause any severe stenotic foci to explain her UI. Likely mulitfactorial with medications, Mets etc. She understood. -Stable from ortho standpoint for out pt work up
[2021-10-30 11:48] VITALS: BP 116/78; PULSE 74; TEMP 98.9
--- NOTE | 2021-10-30 18:08 | P.DS ---
Providers Date of admission: 10/27/21 21:38 Expected date of discharge: 10/30/21 Attending physician: Jose Weeks Consults: 10/27/21 21:37 Consult Physician Routine Consulting Provider: Junior Dorantes Consult Reason/Comments: breast cancer with mets Do you want consulting provider notified?: Yes Consult Physician Routine Consulting Provider: Victor Manuel Dewitt Consult Reason/Comments: breast cancer with spinal mets Do you want consulting provider notified?: Yes 10/29/21 14:16 Consult Physician Routine Consulting Provider: Kareem Boone Consult Reason/Comments: Lower back pain/metastatic disease,/incontinence Do you want consulting provider notified?: Yes Primary care physician: [facility] Course: Chief Complaint: Urinary incontinence This is a very pleasant 56-year-old patient, follows with Dr. Melchor. Patient was diagnosed with breast cancer back in 2017. Had surgery at that time. Has had couple of surgeries following that. [facility] and from [place]. Patient's treatment is being comanaged by both. Patient's had chemotherapy and immunotherapy. Patient has diagnosed to have metastatic disease now in the spine in February 2021. Medications are being changed accordingly. Patient has neuropathy. Some numbness tailing in the hand. Sometimes unsteady on her feet when walking. No fever no chills. Has been having some back discomfort. Patient started becoming incontinent of urine yesterday. With no knowledge of the same. The uterine: His height is starting for last 2 or 3 months. Patient has undergone MRI of the spine today pending results. at the bedside. Patient alternates between constipation and diarrhea because of IBS. Patient also known to have some cardiomyopathy because of her medications. No skin trouble. Appetite is fair no weight loss. October 29: Having lower back pain. No change in urinary incontinence symptoms. Add Ultram. K pad ordered. Patient was seen by radiation oncologist before MRI results are available. Continue with IV steroids. Dr. Boone from orthopedic spine consulted. Discussed with patient. October 30: Discussed with patient . Wanted them to see oncology before they leave. Patient very keen to go home. We'll discharge on dexamethasone 4 mg 3 times a day. She will contact her oncologist tomorrow. Some improvement in urinary incontinence. Seen by Dr. Boone from orthopedics. No surgical intervention indicated. Discussion and discharge planning more than 35 minutes Past medical history to include: DVT, hypertension, IBS, ulcerative colitis, metastatic breast cancer, Social history: No smoking or alcohol. . Family history: Hypertension, osteoporosis, Crohn's Physical examination: VITAL SIGNS: 98.9, 74, 16, 11 [birth year]/1977, 97% room air GENERAL, up in a chair comfortable. EYES: Pupils equal. Conjunctiva normal. HEENT: External appearance of nose and ears normal, oral cavity grossly normal. NECK: JVD not raised; masses not palpable. HEART: First and second heart sounds are normal; no edema. LUNGS: Respiratory rate normal; clear to auscultation. ABDOMEN: Soft, nontender, liver spleen not palpable, no masses palpable. PSYCH: Alert and oriented x3; mood and affect normal. 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 Gait as above INVESTIGATIONS, reviewed in the clinical context: Thoracic lumbar spine MRI with and without contrast: L2 and possible L1 metastatic bone lesion. Bone expansion to L2 may be contribution to for omental narrowing. October 29: Potassium 4 creatinine 0.67 White count 3.8 hemoglobin 11.4 platelets 227 potassium 4 creatinine 1.18 UA: Negative Chest x-ray film personally reviewed by me-possible chronic changes Telemetry strip personally reviewed by me: Sinus rhythm Assessment and plan: -Progressive urinary incontinence. Symptoms started about 2 or 3 months ago. Now patient is totally unaware when she is incontinent. Has known metastatic disease to the spine from breast cancer.: Not improving . L2 and possible L1 metastatic bone lesion. Bone expansion to L2 may be contribution to for omental narrowing. Orthopedics Dr. Boone -no surgical intervention. Radiation oncologist-no radiation currently. Home on dexamethasone 4 mg 3 times a day -Peripheral neuropathy probably from side effect of previous chemotherapy. No pain. Causing gait dysfunction. Patient does not typically need any support for walking. Fall precautions -Obesity BMI 36.7 -Acute kidney injury, likely prerenal Improve with IV fluids -Irritable bowel syndrome Laxative as needed -Chronic insomnia Melatonin ER 10 mg daily at bedtime -Chronic DVT Eliquis -Essential hypertension Cozaar 25 mg daily at bedtime -GERD PPI Disposition: Home Patient Condition at Discharge: Fair Plan - Discharge Summary Discharge Rx Participant: Yes New Discharge Prescriptions: New dexAMETHasone 4 mg PO TID #60 tablet Acetaminophen Tab [Tylenol] 650 mg PO Q6HR PRN tab PRN Reason: Mild Pain Or Fever > 100.5 Continue L.acidoph,Paracasei, B.lactis [Probiotic] 1 cap PO DAILY Apixaban [Eliquis] 5 mg PO BID Losartan [Cozaar] 25 mg PO HS Vitamin E (Dl,Tocopheryl Acet) [Vitamin E (400 Iu = 180 mg)] 400 unit PO BID Sennosides/Docusate Sodium [Senna-S 8.6-50 mg Tablet] 2 tab PO TUTH Magnesium Citrate 100mg 100 mg PO HS Cranberry 4200mg 4,200 mg PO BID Cholecalciferol (Vitamin D3) [Vitamin D3 (125 MCG = 5,000 IU)] 250 mcg PO DAILY Vitamin B Complex 1 cap PO DAILY carvediloL [Coreg] 6.25 mg PO BID PRN PRN Reason: hold if SBP less than 100 Zoledronic Acid [Zometa] 1 dose IV Q30D Oxybutynin Chloride [Oxybutynin Chloride ER] 10 mg PO HS Melatonin [Melatonin ER] 10 mg PO HS Butalb/Acetaminophen/Caffeine [Fioricet 50-325-40] 1 tab PO Q6H PRN PRN Reason: Migraine Headache Fulvestrant 1 dose IM Q30D Omeprazole 40 mg PO DAILY Abemaciclib [Verzenio] 50 mg PO BID Discontinued Docusate [Colace] 100 mg PO BID No Action Turmeric Root Extract [Turmeric] 500 mg PO BID Discharge Medication List L.acidoph,Paracasei, B.lactis [Probiotic] 1 cap PO DAILY 10/26/17 [History] Apixaban [Eliquis] 5 mg PO BID 08/05/18 [History] Turmeric Root Extract [Turmeric] 500 mg PO BID 07/09/19 [History] Losartan [Cozaar] 25 mg PO HS 04/25/21 [History] Sennosides/Docusate Sodium [Senna-S 8.6-50 mg Tablet] 2 tab PO TUTH 04/25/21 [History] Vitamin E (Dl,Tocopheryl Acet) [Vitamin E (400 Iu = 180 mg)] 400 unit PO BID 04/25/21 [History] Abemaciclib [Verzenio] 50 mg PO BID 10/27/21 [History] Butalb/Acetaminophen/Caffeine [Fioricet 50-325-40] 1 tab PO Q6H PRN 10/27/21 [History] Cholecalciferol (Vitamin D3) [Vitamin D3 (125 MCG = 5,000 IU)] 250 mcg PO DAILY 10/27/21 [History] Cranberry 4200mg 4,200 mg PO BID 10/27/21 [History] Fulvestrant 1 dose IM Q30D 10/27/21 [History] Magnesium Citrate 100mg 100 mg PO HS 10/27/21 [History] Melatonin [Melatonin ER] 10 mg PO HS 10/27/21 [History] Omeprazole 40 mg PO DAILY 10/27/21 [History] Oxybutynin Chloride [Oxybutynin Chloride ER] 10 mg PO HS 10/27/21 [History] Vitamin B Complex 1 cap PO DAILY 10/27/21 [History] Zoledronic Acid [Zometa] 1 dose IV Q30D 10/27/21 [History] carvediloL [Coreg] 6.25 mg PO BID PRN 10/27/21 [History] Acetaminophen Tab [Tylenol] 650 mg PO Q6HR PRN tab 10/30/21 [Rx] dexAMETHasone 4 mg PO TID #60 tablet 10/30/21 [Rx] Follow up Appointment(s)/Referral(s): Trevon Melchor DO [Primary Care Provider] - 1-2 days Junior Dorantes MD [STAFF PHYSICIAN] - 1 Week Patient Instructions/Handouts: Dexamethasone (By mouth), Urinary Incontinence (ED), Back Pain (GEN) Discharge Disposition: HOME SELF-CARE
== END 2021-10-30 16:28 | disposition home or self-care (01) | DRG 696 ==
LOC: EC 17:36 → 5NMEDONC 21:38
PROVIDERS: ADMIT Hospitalist; ATTEND Hospitalist
DX: N39.498 Other specified urinary incontinence (principal); C79.51 Secondary malignant neoplasm of bone; I42.7 Cardiomyopathy due to drug and external agent; N17.9 Acute kidney failure, unspecified; K51.90 Ulcerative colitis, unspecified, without complications; G62.0 Drug-induced polyneuropathy; C50.812 Malignant neoplasm of overlapping sites of left female breast; G89.3 Neoplasm related pain (acute) (chronic); T45.1X5A Adverse effect of antineoplastic and immunosuppressive drugs, initial encounter; Z17.0 Estrogen receptor positive status [ER+]; Z28.310 Unvaccinated for COVID-19; M48.061 Spinal stenosis, lumbar region without neurogenic claudication; I10 Essential (primary) hypertension; G43.909 Migraine, unspecified, not intractable, without status migrainosus; K58.2 Mixed irritable bowel syndrome; F51.04 Psychophysiologic insomnia; K21.9 Gastro-esophageal reflux disease without esophagitis; F41.9 Anxiety disorder, unspecified; R26.81 Unsteadiness on feet; E66.9 Obesity, unspecified; Z68.36 Body mass index [BMI] 36.0-36.9, adult; Z79.01 Long term (current) use of anticoagulants; Z79.83 Long term (current) use of bisphosphonates; Z79.818 Long term (current) use of other agents affecting estrogen receptors and estrogen levels; Z79.899 Other long term (current) drug therapy; Z86.16 Personal history of COVID-19; Z90.13 Acquired absence of bilateral breasts and nipples; Z86.718 Personal history of other venous thrombosis and embolism; Z88.6 Allergy status to analgesic agent; Z88.1 Allergy status to other antibiotic agents; Z88.2 Allergy status to sulfonamides; Z88.8 Allergy status to other drugs, medicaments and biological substances; Z91.048 Other nonmedicinal substance allergy status; Z82.61 Family history of arthritis; Z83.79 Family history of other diseases of the digestive system; Z82.62 Family history of osteoporosis; Z82.49 Family history of ischemic heart disease and other diseases of the circulatory system
CPT/HCPCS: 36415; 71046; 72157; 72158; 80048; 80053; 81003; 85025; 86300; 99284

== ENCOUNTER → 2021-11-18 | Outpatient (CLI) | payer BC ==
--- NOTE | 2021-11-18 20:04 | MR ---
EXAMINATION TYPE: MR brain/cspine wo/w DATE OF EXAM: 11/18/2021 COMPARISON: CT brain February 21, 2018. Outside MRI cervical spine January 25, 2021. MRI brain Decembe r 2017 HISTORY: Headaches, history of breast cancer TECHNIQUE: Multiplanar, multisequence images of the brain and brainstem and cervical spine are all performed wit hout and with IV contrast, utilizing 9 mL intravenous Gadavist . FINDINGS: BRAIN: Diffusion weighted images demonstrate no evidence of a recent infarct or other diffusion abnormality. There is no extra-axial fluid collection or significant white matter signal abnormality. The ventr icular system and cisternal spaces are normal in size and appearance. The brain volume is age approp riate. Midline structures demonstrate normal morphology. The craniocervical junction appears within normal limits. Post contrast images demonstrate no abnormal enhancement. The dural venous sinuses appear pa tent. The visualized sinuses are clear and the globes are intact. IMPRESSION: Unremarkable study. No enhancing masses to suggest metastatic disease. C-SPINE: FINDINGS: Sagittal images of the cervical spine show the craniocervical junction to remain within nor mal limits. The cervical and upper thoracic spinal cord remains normal in course, caliber, and signa l. Stable slight grade 1 retrolisthesis C5 on C6. The vertebral body and intravertebral disk heights remain within normal limits. The bone marrow signal intensity is within normal limits. No abnormal postcontrast enhancement is seen. Slight scoliotic curvature on the coronal images. Axial images show C2-C3, C3-C4, C4-C5 levels all to remain within normal limits. Axial images at C5-C6 level broad-based left paracentral disc protrusion effacing the anterior thecal sac and causing asymmetric mild to moderate left-sided neural foraminal narrowing, latter more promi nent from prior. Axial images at C6-C7 level show mild broad disc bulge minimally effaces the anterior thecal sac. Pat ent bilateral neural foramina. No significant change from prior. Axial images at C7-T1 level appear within normal limits. IMPRESSION: Stable spondylolisthesis C5-C6 level. Slightly more prominent degenerative change C5-C6 l evel noted from outside MRI.
== END | disposition home or self-care (01) ==
LOC: RADMRIMAIN 18:17
PROVIDERS: ATTEND Internal Medicine Hematology & Oncology
DX: C50.412 Malignant neoplasm of upper-outer quadrant of left female breast (principal); G44.52 New daily persistent headache (NDPH); G89.3 Neoplasm related pain (acute) (chronic); N63.12 Unspecified lump in the right breast, upper inner quadrant; Z71.3 Dietary counseling and surveillance
CPT/HCPCS: 70553; 72156; A9585

== ENCOUNTER → 2022-09-04 | Outpatient (CLI) | payer MEDICARE ==
--- NOTE | 2022-09-04 12:09 | MR ---
EXAMINATION TYPE: MR lumbar spine wo/w con DATE OF EXAM: 09/04/2022 11:22 AM COMPARISON: 10/28/2021 MRI. CLINICAL INDICATION: Female, 57 years old with history of C50.412; Low back pain, breast cancer. TECHNIQUE: Multi planar, multi sequence imaging was performed utilizing: T1-weighted, T2-weighted, a nd turbo inversion recovery imaging of the lumbar spine. IV Contrast: 9 cc Gadavist. None. FINDINGS: Alignment: The lumbar vertebral bodies have preserved heights and alignment. Cord: The conus medullaris and the distal spinal cord appear unremarkable with regards to their signa l intensity and morphology. Bones/Discs: There is a superior endplate of L2 Schmorl's node versus superior endplate collapse from prior lesion. There is some associated bone edema on the inferior aspect with increased inversion re covery signal. There is a lesion at the level of L2 left pedicle, lamina and transverse process measu ring at least 2.5 x 1.5 x 2.3 cm. This lesion is predominantly high T2 and intermediate T1 signal and high inversion recovery signal. Postcontrast imaging demonstrates enhancement of this lesion. There appears to be myeloid depletion at the level of L1, L2 and L3 suggesting prior treatment to this lesi on. High T2 signal lesions within the L4 and S1 vertebral bodies remain present and could represent focal fat given signal on fat saturation sequences. Multilevel disc degenerative is noted and most pronounced at the L5-S1. Multilevel disc desiccation i s present. T12-L1: No evidence of significant spinal canal stenosis or neural foraminal stenosis. L1-L2: No evidence of significant spinal canal stenosis or neural foraminal stenosis. L2-L3: No evidence of significant spinal canal stenosis or neural foraminal stenosis. L3-L4: Disc bulge and facet joint arthropathy result in mild spinal canal and mild bilateral neural f oraminal stenosis. L4-L5: Disc bulge and facet joint arthropathy result in mild spinal canal and mild to moderate bilate ral neural foraminal stenosis. L5-S1: The disc is rounded posterior morphology without significant spinal canal stenosis. Facet join t arthropathy with moderate neural foraminal stenosis. No significant spinal canal or neural foraminal stenosis in the remainder of the visualized levels. Other findings: None. IMPRESSION: 1. Enhancing intraosseous lesion at the level of L2 involving the left posterior elements with suspe cted postradiation treatment changes to L1-L3. This was not present on PET on 11/30/2018 but was seen on prior MRI 10/28/2021. Overall the size is similar compared to prior on 10/28/2021. An area that exte nds into the L2 vertebral body has some mild bony edema more inferiorly which could represent underly ing superior endplate collapse possibly secondary to Schmorl's node versus lesion. Follow-up PET/CT m ay be of benefit to evaluate metabolic activity. The neural foramen at this level appear patent. The spinal canal is also patent at this level. 2. No evidence for significant spinal canal or neural foraminal stenosis.
== END | disposition home or self-care (01) ==
LOC: RADMRIMAIN 09:52
PROVIDERS: ATTEND Internal Medicine Hematology & Oncology
DX: C50.412 Malignant neoplasm of upper-outer quadrant of left female breast (principal); M48.061 Spinal stenosis, lumbar region without neurogenic claudication; Z85.3 Personal history of malignant neoplasm of breast
CPT/HCPCS: 72158; J1642; A9585

== ENCOUNTER → 2023-02-01 | Outpatient (CLI) | payer MEDICARE ==
--- NOTE | 2023-02-02 08:41 | MR ---
EXAMINATION TYPE: MR brain wo/w con DATE OF EXAM: 02/01/2023 1:49 PM COMPARISON: 05/02/2022 HISTORY: Headaches, dizziness, Hx metastatic Breast cancer to spine, rib, femur CONTRAST: Patient received 8 mL intravenous Gadavist gadolinium contrast. Multiplanar and multispin-echo imaging of the brain was performed . Pre and post contrast enhanced i mages are obtained. The ventricles, basal cisterns and sulci overlying the cerebral convexities are mildly enlarged. There is evidence of mild periventricular white matter ischemic demyelination. Remote deep white matter insults are also noted. No acute edema is seen on diffusion weighted imaging. There is no evidence for midline shift or mass effect. Acute intracranial hemorrhage or extra-axial collection is not evident. No enhancing lesions are seen. The paranasal sinuses and mastoid air cells are well-aerated. IMPRESSION: Age-related atrophic and chronic small vessel ischemic change. No acute intracranial process at this time. No enhancing lesions are seen.
== END | disposition home or self-care (01) ==
LOC: RADMRIMAIN 12:09
PROVIDERS: ATTEND Internal Medicine Hematology & Oncology
DX: C79.51 Secondary malignant neoplasm of bone (principal); C50.412 Malignant neoplasm of upper-outer quadrant of left female breast; I67.82 Cerebral ischemia; G31.9 Degenerative disease of nervous system, unspecified
CPT/HCPCS: 70553; A9585

== ENCOUNTER 2023-11-22 07:16 | Day surgery (SDC) | payer MEDICARE, OTHER ==
[2023-11-22 08:12] VITALS: TEMP 98.7
[2023-11-22] MEDS: IOPAMIDOL-370 100ML BTL INJ ONE ×2 (08:45→08:51)
--- NOTE | 2023-11-22 08:55 | P.OP ---
Date of Procedure: 11/22/23 Description of Procedure: Preoperative Diagnosis: metastatic breast cancer with history of right sided mediport dysfunctional mediport Postoperative Diagnosis: Normal functional mediport Procedure(s) Performed: Portogram Anesthesia: local Surgeon: Giovanni Estimated Blood Loss (ml): 0 Pathology: none sent Condition: stable Disposition: recovery Indications for Procedure: 58 year old female with history of breast cancer and previous chemotherapy via right sided chest catheter presents to the lab technician for portogram due to dysfuntion of the mediport. Has been in place for about 2-1/2 years with function until recently. tPA had been utilized on multiple occasions to try to get open this time Description of Procedure: After written and informed consent was obtained the patient was brought to the lab technician and placed in a supine position. The area of right chest was visualized under fluoroscopy and found to have smooth appropriate contour without any visible kinks. The port was accessed with a Parra needle. Aspirate d and flushed easily. Contrast was instilled with good flow out of the distal tip which is located in the cavoatrial junction. There was no evidence of significant fibrin sheath. The Parra needle was then removed and area was cleansed and dressed
[2023-11-22 08:59] VITALS: BP 116/77; PULSE 71; RESP 16
--- NOTE | 2023-11-22 09:13 | IR ---
EXAMINATION TYPE: IR cva device check w fluoro DATE OF EXAM: 11/22/2023 COMPARISON: NONE HISTORY: Fluoroscopy time. Fluoroscopy was provided to the referring clinician.
== END 2023-11-22 09:04 | disposition home or self-care (01) ==
LOC: CATHCVL 07:16
PROVIDERS: ATTEND Surgery
DX: T85.618A Breakdown (mechanical) of other specified internal prosthetic devices, implants and grafts, initial encounter (principal); C50.412 Malignant neoplasm of upper-outer quadrant of left female breast; G62.9 Polyneuropathy, unspecified; Z88.1 Allergy status to other antibiotic agents; Z88.8 Allergy status to other drugs, medicaments and biological substances; Z86.711 Personal history of pulmonary embolism; Z79.01 Long term (current) use of anticoagulants; Z79.899 Other long term (current) drug therapy; Y83.8 Other surgical procedures as the cause of abnormal reaction of the patient, or of later complication, without mention of misadventure at the time of the procedure
CPT/HCPCS: 36598; J1642; Q9967

== ENCOUNTER → 2024-08-07 | Outpatient (CLI) | payer MEDICARE ==
--- NOTE | 2024-08-07 15:33 | US ---
EXAMINATION TYPE: US bladder DATE OF EXAM: 08/07/2024 COMPARISON: NONE CLINICAL INDICATION: Female, 59 years old with history of N39.490 OVERFLOW INCONTINENCE; TECHNIQUE: Grayscale and color doppler imaging of the bilateral kidneys and urinary bladder. FINDINGS: The initially partially distended bladder shows no gross abnormality. Post Void Residual Volume: 4.2 mL IMPRESSION: Minimal post void bladder volume of 4 mL falls within acceptable limits. [facility], , 08/07/2024 3:31 PM
== END | disposition home or self-care (01) ==
LOC: RADUSWWP 14:57
PROVIDERS: ATTEND Family Medicine
DX: N39.490 Overflow incontinence (principal)
CPT/HCPCS: 76857

== ENCOUNTER → 2024-09-25 | Outpatient (CLI) | payer MEDICARE ==
--- NOTE | 2024-09-29 17:11 | PE ---
EXAMINATION TYPE: PET CT fusion whole body DATE OF EXAM: 09/25/2024 CLINICAL INDICATION:Female, 59 years old with history of C50.412 BREAST CANCER; TECHNIQUE: Following the intravenous administration of 11.26 mCi of F-18 FDG, whole body images are performed of the whole body. Images are reviewed on the computer in the coronal, axial, and sagitta l planes. Reconstructed rotating images are created on independent workstation and reviewed on the c omputer. A non-contrast CT is performed in conjunction with the PET scan. Glucose level 119 mg/dL CT DLP: 1490 mGycm, Automated exposure control for dose reduction was used. COMPARISON: CT 04/27/2022, PET/CT 09/08/2022, 11/30/2018, MRI: 08/18/2024, 05/02/2024, 02/01/2023, 08/26/2022 , 05/02/2022 FINDINGS: Mediastinal SUV mean is 2.2. Hepatic parenchyma SUV mean is 3.2. SKULL BASE AND NECK: No suspicious radiotracer activity. CHEST, MEDIASTINUM, AND HILAR REGION: No suspicious radiotracer activity. ABDOMEN AND PELVIS: No suspicious radiotracer activity. MUSCULOSKELETAL STRUCTURES: No suspicious radiotracer activity. OTHER CT: Cardiomegaly. Right anterior chest wall IJ Mediport catheter approach with distal tip termi nating at the superior cavoatrial junction. Left breast skin thickening redemonstrated. Left axillary surgical clips are demonstrated. Remote right-sided rib fracture. Scattered linear atelectasis withi n the lungs. IMPRESSION: Posttreatment changes without evidence for suspicious radiotracer activity to suggest active disease/ metastasis. [facility], , 09/29/2024 5:09 PM
== END | disposition home or self-care (01) ==
LOC: RADPETMAIN 06:42
PROVIDERS: ATTEND Radiology Radiation Oncology
DX: Z08 Encounter for follow-up examination after completed treatment for malignant neoplasm (principal); C79.51 Secondary malignant neoplasm of bone; C77.0 Secondary and unspecified malignant neoplasm of lymph nodes of head, face and neck; C50.412 Malignant neoplasm of upper-outer quadrant of left female breast; Z92.3 Personal history of irradiation; Z17.0 Estrogen receptor positive status [ER+]; Z85.3 Personal history of malignant neoplasm of breast; Z98.890 Other specified postprocedural states
CPT/HCPCS: 78816; A9552

== ENCOUNTER → 2024-10-02 | Outpatient (CLI) | payer MEDICARE ==
--- NOTE | 2024-10-02 10:23 | MR ---
EXAMINATION TYPE: MR knee RT wo/w con DATE OF EXAM: 10/02/2024 9:30 AM COMPARISON: No radiographic correlation available CLINICAL INDICATION: Female, 59 years old with history of C50.412 MALIG NEOPLASM OF UPPER- M25.561 R KNEE PAIN, , TECHNIQUE: Multiplanar, multisequence images of the right knee are obtained before and after administ ration of 6 mL IV Gadavist. FINDINGS: ACL, PCL, MCL, and LCL complex appear intact. There is pronounced degenerative signal throughout the medial meniscus without a well-defined tear co ntacting either articular surface at this time. However, there is a probable multilocular ganglion cy st measuring 2.1 x 1.1 cm along the anterior margin of the medial tibial plateau adjacent to the ante rior root of the medial meniscus. Moderate irregular cartilage thinning especially along the weightbearing aspect of the medial compart ment. The lateral meniscus appears intact. Lateral compartment articular cartilage volume is maintained. Moderate to severe cartilage loss along the medial patellar facet. Marginal spurring is present. Extensor mechanism is intact. Anterior subcutaneous soft tissue swelling. Moderate knee joint effusion without Paulino's cyst. Normal popliteal artery anatomy. Mild generalized muscle atrophy. Patchy red marrow hyperplasia is pr esent. No suspicious bone marrow replacement. No abnormal enhancing mass is seen. There is mild edema within the lateral gastrocnemius and a 2 cm ganglion cyst at the origin of the me dial head gastrocnemius. IMPRESSION: 1. Extensive degenerative signal throughout the medial meniscus. A 2.1 x 1.1 cm multilocular ganglion cyst along the anterior margin of the medial tibial plateau is located adjacent to the anterior root of the meniscus and may reflect a subtle underlying tear. Consider follow-up exam. 2. Moderate focal osteoarthritic change along the mid weightbearing aspect of the medial compartment. 3. Additional moderate to severe cartilage loss involving the medial patellar facet. 4. Moderate knee joint effusion. 5. Incidental 2 cm ganglion cyst at the origin of the medial head gastrocnemius. Mild edema within th e lateral gastrocnemius could reflect muscle strain or edema reactive to altered biomechanics [facility], , 10/02/2024 10:21 AM
== END | disposition home or self-care (01) ==
LOC: RADMRIMAIN 08:01
PROVIDERS: ATTEND Internal Medicine Hematology & Oncology
DX: M17.11 Unilateral primary osteoarthritis, right knee (principal); M67.461 Ganglion, right knee; C50.412 Malignant neoplasm of upper-outer quadrant of left female breast; G89.3 Neoplasm related pain (acute) (chronic); R51.9 Headache, unspecified; Z71.3 Dietary counseling and surveillance
CPT/HCPCS: 73723; J1642; A9585